=== PATIENT | female | born 1945 | race Caucasian/White ===

== ENCOUNTER 2020-09-29 11:56 | Outpatient (REF) | payer MEDICARE, SELFPAY ==
[2020-09-29 13:50] LABS: MANUAL DIFF FLAG NO
[2020-09-29 13:56] LABS: Glucose Urine UA NEG (NEG); Leukocyte Esterase Urine NEG (NEG); Nitrite Urine NEG (NEG); PH 6.5 (5.0-8.0); Specific Gravity - Urine <= 1.005 (1.005-1.025); Urine Blood NEG (NEG); Urine Ketones NEG (NEG); Urine Protein NEG (NEG-TRACE)
[2020-09-29 13:59] LABS: Appearance Urine CLEAR; Color Urine STRAW
[2020-09-29 14:00] LABS: Renal w Reflex-LAB USE ONLY Order Verified
[2020-09-29 14:01] LABS: Basophils Absolute Auto 0.1 X10*3/uL (0.0-0.2); Basophils Percent Auto 0.9 % (0-2); Eosinophils Absolute Auto 0.4 X10*3/uL (0.0-0.4); Eosinophils Percent Auto 3.5 % (0-4); Hematocrit 44.2 % (37-47); Hemoglobin 14.5 g/dl (12.0-16.0); Imm Gran Abs Auto 0.11 X10*3/uL (0.00-0.03); Imm Gran Pct Auto 0.9 % (0.0-0.4); Lymphocytes Absolute Auto 2.6 X10*3/uL (1.2-4.9); Lymphocytes Percent Auto 22.7 % (20-40); Mean Corpuscular HGB Conc 32.8 g/dl (31.0-35.0); Mean Corpuscular Hemoglobin 30.7 pg (27.0-33.0); Mean Corpuscular Volume 93.4 fL (80-98); Mean Platelet Volume 11.1 fL (9.4-12.3); Monocytes Absolute Auto 0.6 X10*3/uL (0.1-1.2); Monocytes Percent Auto 5.5 % (2-11); Neutrophils Absolute Auto 7.7 X10*3/uL (2.0-8.3); Neutrophils Percent Auto 66.5 % (45-73); Platelet Count 263 X10*3/uL (160-400); Red Blood Count 4.73 X10*6/uL (4.20-5.50); Red Cell Distribution Width 15.4 % (11.0-16.0); White Blood Count 11.6 X10*3/uL (4.8-10.8)
[2020-09-29 14:17] LABS: Albumin Level 4.2 g/dL (3.5-5.0); Anion Gap 15 (12-20); Blood Urea Nitrogen 19 mg/dL (9-16); Calcium 9.5 mg/dL (8.4-10.2); Carbon Dioxide 26 mmol/L (22-29); Chloride 103 mmol/L (96-108); Estimated Glomerular Filt Rate > 60; Phosphorus 3.5 mg/dL (2.7-4.5); Potassium 4.5 mmol/L (3.3-5.1); Sodium 139 mmol/L (135-145)
[2020-09-29 14:20] LABS: RBC Urine 0 /HPF (0); Squamous Epithelial Cell Urine TRACE /LPF; WBC Urine 0 /HPF (0-4)
[2020-09-29 14:50] LABS: Creatinine Urine 19.03 mg/dL; Microalbumin Urine < 5.0 mg/L; Total Protein Urine Random < 7 mg/dL (<12)
[2020-09-29 15:08] LABS: Renal w Reflex Lab Use Only Order verified
== END 2020-09-29 11:57 | disposition home or self-care (01) ==
LOC: HO.10HDL 11:56
PROVIDERS: Visit Provider Internal Medicine Nephrology
DX: R80.9 Proteinuria, unspecified (principal); I12.9 Hypertensive chronic kidney disease with stage 1 through stage 4 chronic kidney disease, or unspecified chronic kidney disease; E11.22 Type 2 diabetes mellitus with diabetic chronic kidney disease; E11.21 Type 2 diabetes mellitus with diabetic nephropathy; N18.2 Chronic kidney disease, stage 2 (mild)
CPT/HCPCS: 36415; 80051; 81001; 82040; 82043; 82310; 82565; 83735; 84100; 84156; 84520; 85025

== ENCOUNTER 2021-10-25 11:01 | Outpatient (REF) | payer MEDICARE, SELFPAY ==
[2021-10-25 11:22] LABS: MANUAL DIFF FLAG NO
[2021-10-25 11:59] LABS: Basophils Absolute Auto 0.1 X10*3/uL (0.0-0.2); Basophils Percent Auto 1.1 % (0-2); Eosinophils Absolute Auto 0.2 X10*3/uL (0.0-0.4); Eosinophils Percent Auto 2.4 % (0-4); Hematocrit 45.9 % (37.0-47.0); Hemoglobin 14.9 g/dl (12.0-16.0); Imm Gran Abs Auto 0.08 X10*3/uL (0.00-0.03); Lymphocytes Absolute Auto 2.3 X10*3/uL (1.2-4.9); Lymphocytes Percent Auto 27.9 % (20-40); Mean Corpuscular HGB Conc 32.5 g/dl (31.0-35.0); Mean Corpuscular Volume 92.4 fL (80.0-98.0); Mean Platelet Volume 11.3 fL (9.4-12.3); Monocytes Absolute Auto 0.6 X10*3/uL (0.1-1.2); Monocytes Percent Auto 7.5 % (2-11); Neutrophils Percent Auto 60.1 % (45-73); Platelet Count 247 X10*3/uL (160-400); Red Blood Count 4.97 X10*6/uL (4.20-5.50); Red Cell Distribution Width 14.8 % (11.0-16.0); White Blood Count 8.4 X10*3/uL (4.8-10.8)
[2021-10-25 12:19] LABS: Estimated Average Glucose 140 mg/dL; Hemoglobin A1c % 6.5 %
[2021-10-25 12:22] LABS: Anion Gap 12 (12-20); Blood Urea Nitrogen 20 mg/dL (9-16); Calcium 9.9 mg/dL (8.4-10.2); Carbon Dioxide 29 mmol/L (22-29); Chloride 106 mmol/L (96-108); Estimated Glomerular Filt Rate 57; Iron 56 mcg/dL (30-160); Percent Iron Saturation 15 % (15-50); Potassium 4.7 mmol/L (3.3-5.1); Sodium 142 mmol/L (135-145); Total Iron Binding Capacity 385 mcg/dL (228-428); Unsaturated Iron Binding 329 ug/dL
[2021-10-25 12:40] LABS: Appearance Urine CLEAR; Color Urine YELLOW; Glucose Urine UA NEG (NEG); Leukocyte Esterase Urine NEG (NEG); Nitrite Urine NEG (NEG); Urine Blood NEG (NEG); Urine Ketones NEG (NEG); Urine Protein NEG (NEG-TRACE)
[2021-10-25 13:10] LABS: Creatinine Urine 38.79 mg/dL; Microalbumin Urine < 5.0 mg/L
== END 2021-10-25 11:02 | disposition home or self-care (01) ==
LOC: HO.LAB 11:01
PROVIDERS: PCP Physician Assistant; Visit Provider Internal Medicine Nephrology
DX: I10 Essential (primary) hypertension (principal)
CPT/HCPCS: 36415; 80051; 81003; 82043; 82306; 82310; 82565; 83036; 83540; 84520; 85025

== ENCOUNTER 2023-06-18 18:04 | Emergency (ER) | payer MEDICARE, SELFPAY ==
--- NOTE | ~2023-06-18 | XR_ITS ---
EXAMINATION: XR CHEST CLINICAL INFORMATION: Cough. COMPARISON: None available. TECHNIQUE: 2 views of the chest were obtained. FINDINGS: The lungs are expanded with mild increase bilateral hilar interstitial markings but no acute consolidation or pleural effusion. Mild atelectatic changes seen right middle lobe. Borderline enlarged heart. Pulmonary vascularity is normal. No gross bony abnormality. XR/XR chest 2V IMPRESSION: Increased bilateral interstitial markings likely pneumonitis. No acute consolidation or pleural effusion seen. Borderline cardiomegaly
[2023-06-18 18:18] VITALS: BP 154/77; BP 160/89; PULSE 106; PULSE 99; RESP 18; TEMP 37.4; O2SAT 94; O2SAT 97; BMI 56.1
--- NOTE | 2023-06-18 18:48 | PC.NURSE ---
pt a&o x4, calm, and cooperative. comes from home for feeling unwell. pt family sts she has an allergy to an ABX but does not remember what one. pt reports urinary frequency with incontinence, thinks she may have a UTI. pt reluctant in taking medications/NSAIDS. sts the only NSAID she will take is naproxen. rr even/unlabored. vss. pt resting quietly on stretcher. call rhodes within pt reach.
--- NOTE | 2023-06-18 18:59 | ED.GENADULT ---
HPI - General Adult General Chief complaint: General Medical Stated complaint: nausea and MANUEL Time Seen by Provider: 06/18/23 18:09 Source: patient Mode of arrival: EMS History of Present Illness HPI narrative: 77-year-old female who is brought in by EMS after experiencing headache, cough, abdominal discomfort with some mild nausea and a low-grade fever and found herself to be COVID-19 positive. Patient thinks that she may have contracted COVID after visiting her mother in a [place] [facility] [place] on . She otherwise denies any shortness of breath or chest pain. Related Data Home Medications Medication Instructions Recorded Confirmed amlodipine 10 mg tablet 10 mg PO DAILY 03/02/21 betamethasone dipropionate 0.05 % appl topical 03/02/21 topical cream blood sugar diagnostic (FreeStyle #10 ea 03/02/21 Lite Strips) bupropion HCl 200 mg tablet,12 hr PO 03/02/21 sustained-release carbamide peroxide 6.5 % ear drops 0 drp otic (ears) 03/02/21 (Ear Wax Removal Drops) hydrochlorothiazide 12.5 mg tablet 12.5 mg PO DAILY 03/02/21 insulin degludec 200 unit/mL (3 unit subcut 03/02/21 mL) subcutaneous pen (Tresiba FlexTouch U-200 insulin) levothyroxine 150 mcg capsule 150 mcg PO DAILY 03/02/21 meclizine 25 mg tablet 25 mg PO DAILY 03/02/21 metformin 1,000 mg tablet 1,000 mg PO DAILY 03/02/21 mupirocin 2 % topical ointment topical DAILY 03/02/21 nystatin 100,000 unit/gram topical 1 appl topical BID-TID 03/02/21 powder (Nystop) Allergies Allergy/AdvReac Type Severity Reaction Status Date / Time No Known Allergies Allergy Verified 03/02/21 10:06 Review of Systems Review of Systems: Pertinent positives and negatives as stated in HPI [facility] Past Medical History Source: nursing notes reviewed Social History Social History Smoked in Last 30 Days: No Use of substances other than those prescribed or required for medical reasons: No Advance Directives: No Advance Directives Information Provided: No Physical Exam ED Vital Signs: Vital Signs - 24 hr 06/18/23 18:18 Temperature 99.3 F Pulse Rate 99 Respiratory Rate 18 Blood Pressure 154/77 H Pulse Oximetry 94 Oxygen Delivery Method Room Air BMI result Body Mass Index 56.1 VITAL SIGNS: Reviewed. GENERAL: Well developed, well nourished, in no acute distress. HEAD: Normocephalic/atraumatic EYES: PERRLA, EOMI EARS: Ext canals without abnormality NOSE: Nares patent bilateral OROPHARYNX: no oral lesions noted, posterior pharynx clear NECK: Supple, no adenopathy LUNGS: Normal breath sounds. No adventitious sounds or accessory muscle use. SpO2<94> CARDIOVASCULAR: Regular rate and rhythm without noted murmurs, no JVD or lower extremity edema. ABDOMEN: Soft, non-tender, non-distended with bowel sounds. MUSCULOSKELETAL: No tenderness, deformities, or effusions noted on gross inspection. EXTREMITIES: No cyanosis, clubbing or edema. SKIN: Inspection of the skin reveals no rashes NEUROLOGIC: Alert and oriented x 4. Strength and sensation to light touch were grossly intact x 4. Medications Administered Discontinued Medications Generic Name Dose Route Start Last Admin Trade Name Freq PRN Reason Stop Dose Admin Sodium Chloride 500 mls @ 999 mls/hr 06/18/23 19:15 06/18/23 20:20 Ns IV 06/18/23 19:45 Infused .Q31M JEROMY Infusion Naproxen 500 mg 06/18/23 18:49 06/18/23 19:01 Naproxen 500 Mg Tablet PO 06/18/23 18:50 500 mg ONCE ONE Administration Ondansetron HCl 4 mg 06/18/23 19:00 06/18/23 19:02 Ondansetron Odt 4 Mg Tab.Rapdis TRANSLINGU 06/18/23 19:01 Not Given ONCE ONE Medical Decision Making Medical Decision Making [facility] Narrative: 77-year-old female with history and clinical presentation consistent with viral illness, possibility of UTI but doubt intra-abdominal infection and patient has confirmed that she is COVID-19 positive. Patient will receive Zofran as well as naproxen the latter is at her request. I reviewed all investigations and viral testing demonstrates that patient is COVID-19 positive, chest x-ray is negative for infiltrates and otherwise my interpretation is in agreement with radiology's impression, urinalysis is negative for UTI or hematuria. Patient is otherwise discharged home and instructed to isolate for 5 days. Differential Diagnosis Differential Diagnoses: The differential diagnosis associated with the presentation includes Please see the discussion above Admission/Observation Consideration of admission/observation: Escalation of care including admission/observation considered Please see the discussion above Lab Data MDM Lab Attestation statement: I reviewed the patient's lab results. Please see the discussion above Labs: Lab Results 06/18/23 06/18/23 Range/Units 19:04 21:03 Urine Color Yellow Urine Appearance Clear Urine pH 5.5 (5.0-9.0) Ur Specific [place] 1.020 (1.005-1.025) Urine Protein Negative (Neg-Trace) mg/dL Urine Glucose (UA) Negative (Negative) mg/dL Urine Ketones 15 (Negative) mg/dL Urine Blood Negative (Negative) Urine Nitrite Negative (Negative) Ur Leukocyte Esterase Negative (Negative) COVID-19 (FERNANDA) Positive A (Negative) COVID-19 Clin Com See Note Influenza Type A (DOMINICK) Negative (Negative) Influenza Type B (DOMINICK) Negative (Negative) Influenza A & B Note See Note Radiology Impression Discussion of test interpretation with radiology: I have reviewed the radiologist's reading. Radiologist Impression: Please see the discussion above External Record Review External record reviewed: Outpatient record and Prior outpatient labs Chronic Conditions Patient?s care impacted by: Diabetes Discharge Plan Discharge Clinical Impression: Viral illness, Lab test positive for detection of COVID-19 virus Patient Disposition: Home, Self-Care Instructions: Viral Syndrome (ED), COVID-19 (Coronavirus Disease 2019) (ED) Additional Instructions: 1. You must isolate for the next 5 days because you are COVID-19 positive. 2. Recommend [id number] Tylenol and/or ibuprofen for body aches/temperatures greater than 100.4, headaches. Continue to drink plenty of fluids and get rest Return to the ER for any worsening symptoms. Prescriptions: No Action nystatin [Nystop] 100,000 unit/gram powder 1 appl topical BID-TID amlodipine 10 mg tablet 10 mg PO DAILY Tresiba FlexTouch U-200 200 unit/mL (3 mL) insulin pen subcut carbamide peroxide [Ear Wax Removal Drops] 6.5 % drops 0 drp otic (ears) mupirocin 2 % ointment topical DAILY (DME) FreeStyle Lite Strips Strip See Rx Instructions Not Applicable .MEDSUPPLY Qty: 10 Rx Instructions: As directed betamethasone dipropionate 0.05 % cream topical levothyroxine 150 mcg capsule 150 mcg PO DAILY metformin 1,000 mg tablet 1,000 mg PO DAILY bupropion HCl 200 mg tablet sustained-release 12 hr PO hydrochlorothiazide 12.5 mg tablet 12.5 mg PO DAILY meclizine 25 mg tablet 25 mg PO DAILY
[2023-06-18] MEDS: NaPROXEN 500 MG TABLET PO (19:01)
[2023-06-18] MEDS: 0.9 % Sodium Chloride 500 ML 999 ML IV (19:04)
[2023-06-18 19:25] LABS: COVID-19 Test Positive (Negative); IDNOW Serial# 9DB6401D; IDNOW Serial# BCCEAD1C; Influenza A Negative (Negative); Influenza B2 Negative (Negative)
[2023-06-18 21:13] LABS: Appearance Urine Clear; Color Urine Yellow; Glucose Urine UA Negative (Negative); Leukocyte Esterase Urine Negative (Negative); Nitrite Urine Negative (Negative); PH 5.5 (5.0-9.0); Urine Blood Negative (Negative); Urine Ketones 15 mg/dL (Negative); Urine Protein Negative (Neg-Trace)
[2023-06-18 21:25] VITALS: BP 141/73; PULSE 89; RESP 20; TEMP 36.9; O2SAT 94
== END 2023-06-18 21:31 | disposition home or self-care (01) ==
PROVIDERS: Emergency Provider Student in an Organized Health Care Education/Training Program
DX: U07.1 COVID-19 (principal); B34.9 Viral infection, unspecified
CPT/HCPCS: 71046; 81003; 87502; 87635; 96360; 99284

== ENCOUNTER 2023-10-29 09:50 | Outpatient (REF) | payer MEDICARE, SELFPAY ==
[2023-10-29 10:55] LABS: Appearance Urine Cloudy; Color Urine Yellow; Glucose Urine UA Negative (Negative); Leukocyte Esterase Urine Negative (Negative); Nitrite Urine Negative (Negative); PH 5.5 (5.0-9.0); Specific Gravity - Urine 1.025 (1.005-1.025); Urine Blood Negative (Negative); Urine Ketones Negative (Negative); Urine Protein Negative (Neg-Trace)
[2023-10-29 11:03] LABS: Anion Gap 14 (12-20); Blood Urea Nitrogen 21 mg/dL (9-16); Calcium 9.4 mg/dL (8.4-10.2); Carbon Dioxide 24 mmol/L (22-29); Chloride 108 mmol/L (96-108); Estimated Glomerular Filt Rate > 60; Potassium 4.2 mmol/L (3.3-5.1); Sodium 142 mmol/L (135-145)
[2023-10-29 12:01] LABS: Microalbum/Creatinine Ratio Ur 8.2 ug/mg cr (<30); Total Protein Urine Random < 7 mg/dL (<12)
== END 2023-10-29 09:51 | disposition home or self-care (01) ==
LOC: HO.LAB 09:50
PROVIDERS: PCP Nurse Practitioner Adult Health; Visit Provider Internal Medicine Nephrology
DX: E11.21 Type 2 diabetes mellitus with diabetic nephropathy (principal)
CPT/HCPCS: 36415; 80051; 81003; 82043; 82310; 82565; 82570; 84156; 84520

== ENCOUNTER 2024-11-24 09:52 | Outpatient (REF) | payer MEDICARE, SELFPAY ==
[2024-11-24 10:55] LABS: Anion Gap 15 (12-20); Blood Urea Nitrogen 16 mg/dL (9-16); Calcium 9.6 mg/dL (8.4-10.2); Carbon Dioxide 24 mmol/L (22-29); Chloride 106 mmol/L (96-108); Estimated Glomerular Filt Rate > 60; Potassium 4.4 mmol/L (3.3-5.1); Sodium 141 mmol/L (135-145)
[2024-11-24 11:02] LABS: Appearance Urine Clear; Color Urine Yellow; Glucose Urine UA Negative (Negative); Leukocyte Esterase Urine Negative (Negative); Nitrite Urine Negative (Negative); Specific Gravity - Urine 1.025 (1.005-1.025); Urine Blood Negative (Negative); Urine Ketones Negative (Negative); Urine Protein Negative (Neg-Trace)
[2024-11-24 11:08] LABS: Bacteria Urine Trace (None Seen); Hyaline Casts Urine 0-2 /LPF (0-2); RBC Urine 0-2 /HPF (0-2); WBC Urine 0-5 /HPF (0-5)
--- OUTSIDE RECORDS SUMMARY | 2024-11-24 11:18 | XMS_ITS | Patient Health Record ---
Author Organization [facility] Jyotsna Kim Address [address] [place] [address] Care Team Providers Care Sccm Administrator Name Role Phone Oc FORD, Candelaria Primary Care Provider Unav gene CaraballoenricoKimberyl Unavailable [phone] Allergies Allergen (clinical drug ingredient) Drug/Non Drug Allergy documented on EMR Reaction Allergy Type Onset Date Status ciprofloxacin Cipro Unknown Drug Allergy Act casey Levaquin Unknown Drug Allergy Active Results Component Value Reference Range Notes HEMOGLOBIN A1C (GLYCOHEMOGLO BIN) Reviewed date:08/19/2024 11:30:03 AM Interpretation: Performing Lab: Notes/Report: HEMOGLOBIN A1C % (HH) 7.9 Reason For Referral No Information Medications Medication SIG (Take, Route, Frequency, Duration) Notes Start Date End Date Status Travatan Active NovoLOG Active Multivitamin Active Liothyronine Sodium 5 MCG 1 tablet on an empty stomach Orally Once a day for 30 day(s) Active Levothyroxine Sodium 150 MCG 1 tablet in the morning on an empty stomach Orally Once a day for 30 day(s) Active Fish Oil Active Extra Depth Orthopedic Shoes (1 Pair) with Customized Heat Molded Multidensity Innersoles (3 Pair) as directed Dx: NIDDM/Polyneuropathy (E11.42), Hammertoe Foot Deformity (M20.41,M20.42), Preulcerative Skin Lesion(s) (L85.1 Active metFORMIN HCl 1000 MG 1 tablet with a me al Orally Once a day for 30 day(s) Active Meclizine HCl 25 MG 1 tablet as needed Orally Once a day for 30 day(s) PRN Active Magnesium 200 MG 2 tablets with a richy l Orally Once a day for 30 day(s) Active Losartan Potassium 100 MG 1 tablet Orall y Once a day for 30 day(s) Active Custom Orthotics as directed 11/09/2020 Not-Taking B Complex Active amLODIPine Besylate 10 MG 1 tablet Orall y Once a day for 30 day(s) Not-Taking Timolol Hemihydrate 0.25 % 1 drop into a ffected eye Ophthalmic Once a day Active Extra Depth Orthopedic Shoes (1 Pair) with Customized Heat Molded Multidensity Innersoles (3 Pair) as directed Dx: NIDDM/Polyneuropathy (E11.42), Hammertoe Foot Deformity (M20.41,M20.42), Preulcerative Skin Lesion(s) (L85.1 11/09/2020 Not-Taking Plavix Active Vitamin C Not-Taking hydroCHLOROthiazide 12.5 MG 1 capsule in the morning Orally Once a day for 30 day(s) Not-Taking Vitamin K2 Active Vitamin D3 Active Tresiba Active Aspirin 81 81 MG 1 tablet Orally Once a day Active Timoptic 0.25 % 1 drop into affected eye Ophthalmic Once a day Not-Taking Clopidogrel Bisulfate Active Lactic Acid Not-Taki ng buPROPion HCl ER (SR) 200 MG 1 tablet in the morning Orally Once a day for 30 day(s) Not-Taking Albuterol PRN Not-Taking Immunizations Vaccine Route Administration Date Status Comme nts Influenza Unknown 01/23/2023 Refused Influenza Unknown 10/16/2023 Refused Social History Tobacco Use: Social History Observation Description Date Details (start date - stop date) Never Smoker NA - NA Alcohol Screen Question Answer Notes Did you have a drink containing alcohol in the p ast year? No Points 0 Interpretation Negative Tobacco use other than smoking: Question Answer Notes Are you an other tobacco user? No Tobacco Control (Standard) Question Answer Notes Tobacco use: Nonsmoker Problems Problem Type SNOMED Code ICD Code Onset Dates Problem Status W/U Status Risk Notes Problem Acquired hammer toe of right foot (2300620358617221) Other hammer toe(s) (acquired), right foot (M20.41) Active confirmed Problem Acquired hammer toe of left foot (0828450588290193) Other hammer toe(s) (acquired), left foot (M20.42) Active confirmed Problem 112095421 Type 2 diabetes mellitus with other skin ulcer (E11.622) Active confirmed Problem 72602216523095853 Non-pressure chronic ulcer of unspecified part of left lower leg with unspecified severity (L97.929) Active confirmed Problem 280773830 Hammer toe of left foot (M20.42) Active confirmed Problem 0355389707 Hallux valgus of left foot (M20.12) Active confirmed Problem 46731594 Type 2 diabetes mellitus with polyneuropathy (E11.42) Active confirmed Problem 26377872647431848 Atherosclerosi s of artery of both lower extremities (I70.203) Active confirmed Problem 44865643 Type 2 diabetes, controlled, with neuropathy (E11.40) Active confirmed Vital Signs Blood pressure diastolic 67 mm Hg 08/19/2024 Height 5 ft 1 in in 08/19/2024 Blood pressure systolic 118 mm Hg 08/19/2024 Weight 300 lbs 08/19/2024 BMI 56.68 kg/m2 08/19/2024 Encounters Encounter Location Date Provider Diagnosis [address] [address] 03/05/2024 Kimberly Tang Tinea unguium B35.1 and Type 2 diabetes mellitus with polyneuropathy E11.[address] [address] 05/21/2024 Kimberly Tang Type 2 diabetes mellitus with polyneuropathy E11.42 ; Other hammer toe(s) (acquired), left foot M20.42 ; Tinea unguium B35.1 ; Other hammer toe(s) (acquired), right foot M20.41 ; Type 2 diabetes mellitus with other skin ulcer E11.622 ; Non-pressure chronic ulcer of unspecified part of left lower leg with unspecified severity L97.929 ; Atherosclerosis of artery of both lower extremities I70.203 and Hallux valgus of left foot M20.[address] [address] 08/19/2024 Kimberly Tang Type 2 diabetes mellitus with polyneuropathy E11.42 ; Other hammer toe(s) (acquired), left foot M20.42 ; Tinea unguium B35.1 ; Other hammer toe(s) (acquired), right foot M20.41 and Atherosclerosis of artery of both lower extremities I70.203 [facility] [place] [address] [place] [address] 12/25/2023 Kimberly Tang Assessments Encounter Date Diagnosis (ICD Code) Assessment Notes Treatment Notes Treatment Clinical Notes Section Notes 03/05/2024 Tinea unguium (ICD-10 - B35.1) 05/21/2024 Other hammer toe(s) (acquired), left foot (ICD-10 - M20.42) 05/21/2024 Type 2 diabetes mellitus with polyneuropathy (ICD-10 - E11.42) 08/19/2024 Type 2 diabetes mellitus with polyneuropathy (ICD-10 - E11.42) 08/19/2024 Other hammer toe(s) (acquired), left foot (ICD-10 - M20.42) 08/19/2024 Tinea unguium (ICD-10 - B35.1) 05/21/2024 Tinea unguium (ICD-10 - B35.1) 03/05/2024 Type 2 diabetes mellitus with polyneuropathy (ICD-10 - E11.42) 05/21/2024 Other hammer toe(s) (acquired), right foot (ICD-10 - M20.41) Patient Educated with: DIABETIC FOOT CARE INSTRUCTIONS. pdf (DIABETIC FOOT CARE INSTRUCTIONS. pdf) 08/19/2024 Other hammer toe(s) (acquired), right foot (ICD-10 - M20.41) Patient Educated with: DIABETIC FOOT CARE INSTRUCTIONS. pdf (DIABETIC FOOT CARE INSTRUCTIONS. pdf) 05/21/2024 Type 2 diabetes mellitus with other skin ulcer (ICD-10 - E11.622) 08/19/2024 Atherosclerosis of artery of both lower extremities (ICD-10 - I70.203) 05/21/2024 Non-pressure chronic ulcer of unspecified part of left lower leg with unspecified severity (ICD-10 - L97.929) 05/21/2024 Atherosclerosis of artery of both lower extremities (ICD-10 - I70.203) 05/21/2024 Hallux valgus of left foot (ICD-10 - M20.12) Plan Of Treatment Next Appt Details Provider Name:Kimberly weston, 01/20/2025 03:15:00 PM, [address] [place], [address], Insurance Providers Payer Name Payer Address Payer Phone Subscriber Number Group Number Insured Name Patient Relationship to Insured Coverage Start Date Coverage End Date Medicare [employer] [address] [place] [address] [id number] Karma Pelaez Self - patient is the insured [employer] [address] [place] [address] [id number] Karma Pelaez Self - patient is the insured Medical (General) History Medical History History ICD Code Arthritis asthma Back,Hip,and Knee pain Cancer Cataracts Depression Diabetic type 2 Glaucoma Measles Mumps Chicken pox Joint implants/screws High blood pressure Kidney disease Liver disease Osteoporosis Sciatica chronic sinusitis thyroid Surgical History Surgery Date(Month/Year) right knee replacement 11/2001 left knee replacement 11/2012 hysterectomy 11/2002 mastectomy 08/2011 Angiogram and stent placed in the poplit eal artery 12/27/22
--- OUTSIDE RECORDS SUMMARY | 2024-11-24 11:19 | XMS_ITS | Clinical Summary ---
Author Organization [facility] Facility Address [address] [place] [id number] Care Team Providers Care Tacking Stitch Remover Name Role Phone Zen Patton MD Primary Care Provider [phone] Allergies Active Allergy Reactions Criticality Noted Date Comments Ciprofloxacin Other (see comments) 11/01/2023 Levofloxacin Other (see comments) 11/01/2023 Liraglutide Other (see comments) 04/08/2019 Medications coenzyme Q-10 100 MG capsule Take 1 capsule by mouth 1 (one) time each day Active Linton-3 Fatty Acids (FISH OIL PO) Take 2 capsules by mouth 1 (one) time each day Active albuterol HFA (PROVENTIL HFA;VENTOLIN HFA) 108 (90 Base) MCG/ACT inhaler 1 puff by Other route every 4 (four) hours Active hydroCHLOROthia zide (HYDRODIURIL) 12.5 MG tablet Take 1 tablet by mouth 1 (one) time each day Active insulin aspart (NovoLOG) 100 UNIT/ML injection Active losartan (COZAAR) 25 MG tablet Take 25 mg by mouth 1 (one) time each day Active Meclizine HCl 25 MG chewable tablet Chew 1 tablet 1 (one) time each day if needed Active metFORMIN (GLUCOPHAGE) 1000 MG tablet Take 1 tablet by mouth every morning Active niacin 500 MG CR capsule Take 1 capsule by mouth 1 (one) time each day Active insulin degludec (Tresiba FlexTouch) 100 UNIT/ML injection Inject 32 Units under the skin 1 (one) time each day Active liothyronine (CYTOMEL) 5 MCG tablet Take 5 mcg by mouth 1 (one) time each day Active levothyroxine sodium (TIROSINT) 150 MCG capsule Take 150 mcg by mouth 1 (one) time each day Active HEMP OIL-VANILLYL BUTYL ETHER EX Apply topically Active calcium carbonate-vitam in D (OSCAL-500) 500-200 MG-UNIT per tablet Take 1 tablet by mouth 1 (one) time each day Active Acetylcysteine (NAC) 500 MG capsule Take by mouth Active Quercetin 250 MG tablet Take by mouth Active amLODIPine (NORVASC) 5 MG tablet Take 1 tablet (5 mg total) by mouth 1 (one) time each day 90 tablet 3 4 Active Active Problems Problem Noted Date Diagnosed Date Chronic kidney disease, stage 2 (mild) 3 Chronic kidney disease stage 2 10/21/2020 Hypertensive renal disease 10/21/2020 Hypertensive renal disease 10/21/2020 Proteinuria 10/21/2020 Renal disorder due to type 2 diabetes mellitus 0 10/21/2020 Acquired hypothyroidism 04/08/2019 Overview (10/21/2020): Last Assessment & Plan: Recent TFTs reviewed Continues on LT4, LT3 Clinically euthyroid Mixed hyperlipidemia 04/08/2019 Overview (10/21/2020): Last Assessment & Plan: Has declined statin therapy LDL is above goal on most recent lab work Obstructive sleep apnea syndrome 04/08/2019 Overview (10/21/2020): Last Assessment & Plan: Uses CPAP consistently Good quality sleep is important for improving metabolic markers which affect glucose control and weight management Gastro-esophageal reflux disease with esophagiti s 07/15/2014 Overview (10/21/2020): Gastroesophageal reflux disease with esophagitis Hypertensive disorder 07/15/2014 Overview (10/21/2020): Hypertension Last Assessment & Plan: Continues on medication regimen which includes ARB Blood pressure is very well controlled Malignant neoplasm of breast (female), unspecifi ed 07/15/2014 Overview (10/21/2020): Malignant neoplasm of female breast; Right Morbid obesity 07/15/2014 Overview (10/21/2020): Morbid obesity Last Assessment & Plan: Karma declined a weight today, BMI has been >50 She has been less consistent with healthy eating but plans to resume a healthier plan Basal insulin requirement has been stable Osteoarthritis 07/15/2014 Overview (10/21/2020): Osteoarthritis Type 2 diabetes mellitus 07/15/2014 Overview (10/21/2020): Diabetes mellitus type 2 Last Assessment & Plan: Overall glucose control is suboptimal in the recent past, likely related to less consistency with healthy lifestyle Karma is reassured that her A1c, though higher than previous, remains in good overall range We reviewed current insulin therapy and Karma will continue her current doses as she works on improving her diet We discussed the possible effects of dental abscess on glucose levels due to increase in insulin resistance, Karma is encouraged to monitor blood sugars closely and reduce basal insulin dose if FPG are trending lower Karma is encouraged to contact me with any questions or concerns Last Assessment & Plan: A1c has been rising though remains in reasonable range given Karma's age and health status We discussed importance of minimizing risk for hypoglycemia Requiring higher doses of insulin, we discussed reasons for higher insulin requirement based on recent lifestyle patterns and increased stressors We discussed optimized dose of mealtime insulin and slight reduction in basal insulin based on self report of glucose readings We discussed the benefits of CGM personal vs profession eval to assess glucose patterns, Karma will consider this Encouraged to continue to work on healthy lifestyle habits Advised to contact me with any questions or concerns We will meet again in 6 months, Karma has upcoming appt with our director public staff ? ? This patient has diabetes This patient has been using a blood glucose meter and performing 4 or more blood glucose readings daily or is now using CGM This patient is insulin-treated with 3 or more daily injections OR a continuous subcutaneous insulin infusion pump This patient's insulin treatment regimen requires frequent adjustment by the patient on the basis of blood glucose meter readings or continuous glucose monitoring results This patient has had an in-person visit with the treating provider to evaluate diabetes control and determine criteria for CGM use This patient will return for follow up visits at least every 6 months to assess adherence to CGM regimen, the effect of the current diabetes treatment regimen and to have insulin and medication therapy adjusted as needed for optimal outcome X By checking this space, I attest that the patient does not meet the standard CGM requirements, however, is an exception because he/she is in need of a CGM during COVID-19 pandemic. Encounters Date Type Department Care Team Description 11/24/2024 Orders Only [facility]. [address] [phone] Felix Flanagan MD from Last 3 Months Immunizations Immunization Administration Dates Next Due Influenza (IM) Preservative Free 05/01/2013 Influenza Split High Dose Pr eservative Free IM 05/29/2017,04/21/2016,05/14/2015,06/10 Influenza, Unspecified 07/15/2014,2011,05/11/2011,05/02,04/26/2009,04/24/2008,06/08/2007 ,06/14/2006,05/17/2005,05/19/2004 Pneumococcal Conjugate 13-Valent 06/10/2015 Pneumococcal Polysaccharide 07/05/2017, 1,06/14/2006 Pneumococcal, Unspecified 07/15/2014 Tdap 08/24/2010 Zoster 02/11/2013 Family History Medical History Relation Comments Hypertension Child son Cancer Father Diabetes Father Gout Father Heart disease Father Hypertension Father Kidney disease Father Stroke Father Cancer Mother Dementia Mother Diabetes Mother Heart disease Mother Hypertension Mother Stroke Sibling 1 Hypertension Sibling 2 Diabetes Sibling 3 sisterx2 Heart disease Sibling 4 siblings Kidney disease Sibling 5 sister Relation Status Comments Child Father Mother Sibling 1 Sibling 2 Sibling 3 Sibling 4 Sibling 5 Social History Tobacco Use Types Packs/Day Years Used Date Smoking Tobacco: Former Cigarettes Q uit: 07/30/1983 Alcohol Use Standard Drinks/Week Comments Yes 0 (1 standard drink = 0.6 oz pure alcohol) Alcoholic Drinks/day: Occasional social drink Comments Unknown Sex and Gender Information Value Date Recorded Sex Assigned at Not on file Legal Sex Female 5:05 PM EST Gender Identity Not on file Sexual Orientation Not on file Last Filed Vital Signs Vital Sign Reading Time Taken Comments Blood Pressure 127/68 11/01/2023 2:23 PM EDT Pulse 77 11/01/2023 2:23 PM EDT Temperature - - Respiratory Rate - - Oxygen Saturation 98% 11/01/2023 2:23 PM EDT Inhaled Oxygen Concentration - - Weight 135 kg (297 lb 6.4 oz) 11/01/2023 2:23 PM EDT Height 154.9 cm (5' 1 ) 10/08/2018 12:00 PM EDT Body Mass Index 56.19 10/08/2018 12:00 PM EDT Plan of Treatment Upcoming Encounters Date Type Department Care Team (Late st Contact Info) Description 12/01/2024 1:30 PM EDT Office Visit [facility] [address] [place] [phone] Felix Flanagan MD [address] [facility] [address] [place] [address] Health Maintenance Due Date Last Done Comments Diabetes: Ophthalmology Exam 08/30/2020 Diabetes: Pedal Pulse Checked 08/30/2020 Diabetes: Sensory Foot Exam 08/30/2020 Diabetes: Visual Foot Exam 08/30/2020 Diabetes: Hemoglobin A1C 09/20/202406/20/2 024, 10/25/2021, 08/18/2021, Additional history exists Influenza Vaccine (Season Ended) 2025 05/29/2017, 04/21/2016, 05/14/2015, Additional history exists Pneumococcal Vaccine: 50+ Years Completed 07/05/2017, 06/10/2015, 07/15/2014, Additional history exists Pneumococcal Vaccine: Peds (0 to 5 Years) and At-Risk Patients (6 to 49 Years) Discontinued 07/05/2017, 06/10/2015, 07/15/2014, Additional history exists Hepatitis B Vaccine Aged Out No longe r eligible based on patient's age to complete this topic Procedures Procedure Name Priority Date/Time Associated Diagnosis Comments URINALYSIS WITH MICROSCOPIC Routine 11/24/2024 10:29 AM EDT CALCIUM Routine 11/24/2024 10:12 AM EDT CREATININE, BLOOD Routine 11/24/2024 10: 12 AM EDT BUN Routine 11/24/2024 10:12 AM EDT ELECTROLYTE PANEL Routine 11/24/2024 10: 12 AM EDT HEMOGLOBIN A1C Routine 10/25/2021 11:20 AM EDT Hypertensive disorder from Last 3 Months or Most Recently Relevant to Health Maintenance Results * Urinalysis with microscopic (11/24/2024 10:29 AM EDT) Color Urine Yellow See orde r comments Appearance Urine Clear See order comments pH Urine 7.0 5.0 - 9.0 See order comments Glucose Urine Negative Negative mg/dL See order comments Blood, Urine Negative Negative See ord er comments Specific [place] Urine 1.025 1.005 - 1.025 See order comments Protein Urine Negative Neg-Trace mg/dL See order comments Ketones, Urine Negative Negative mg/dL See order comments Nitrite, Urine Negative Negative See o rder comments Leukocyte Esterase Urine Negative Negative See order comments RBC, Urine 0-2 0 - 2 /HPF See orde r comments WBC 0-5 0 - 5 /HPF See order comments Squamous Epithelial, Urine 11-20 0 - 2 /HPF See order comments Bacteria, Urine Trace None Seen See order comments Hyaline Casts, Urine 0-2 0 - 2 /LPF See order comments 11/24/2024 10:2 9 AM EDT 11/24/2024 10:29 AM EDT us Felix Flanagan MD LAB URINE ORDERABLES Final Re sult AFSHAN See order comments [place] [address] * Creatinine (11/24/2024 10:12 AM EDT) Creatinine Serum 0.78 0.5 - 1.4 mg/dL See order comments eGFR >60 See order comments Comment: Chronic Kidney Disease: ??Estimated GFR < 60 mL/min/1.73m2 Severe Kidney Disease: ??Estimated GFR < 15 mL/min/1.73m2 11/24/2024 10:1 2 AM EDT 11/24/2024 10:12 AM EDT us Felix Flanagan MD LAB BLOOD ORDERABLES Final Re sult Performing Organization Address [facility] de Phone Number [place] See order comments [place] [address] * BUN (11/24/2024 10:12 AM EDT) BUN 16 9 - 16 mg/dL See order comments 11/24/2024 10:1 2 AM EDT 11/24/2024 10:12 AM EDT us Felix Flanagan MD LAB BLOOD ORDERABLES Final Re sult Performing Organization Address [facility] de Phone Number [place] See order comments [place] [address] * Calcium (11/24/2024 10:12 AM EDT) Calcium 9.6 8.4 - 10.2 mg/dL See order comments 11/24/2024 10:1 2 AM EDT 11/24/2024 10:12 AM EDT us Felix Flanagan MD LAB BLOOD ORDERABLES Final Re sult Performing Organization Address [facility] Co de Phone Number [place] See order comments [place] [address] * Electrolyte panel (11/24/2024 10:12 AM EDT) Sodium 141 135 - 145 mmol/L See order comments Potassium 4.4 3.3 - 5.1 mmol/L See order comments Chloride 106 96 - 108 mmol/L See order comments Bicarbonate (CO2) 24 22 - 29 mmol/L See order comments Anion Gap 15 12 - 20 See order comments 11/24/2024 10:1 2 AM EDT 11/24/2024 10:12 AM EDT Felix Flanagan MD LAB BLOOD ORDERABLES Final Re sult Performing Organization Address [facility] Phone Number [facility] See order comments [place] [address] * Hemoglobin A1c (10/25/2021 11:20 AM EDT) Hemoglobin A1C 6.5 % [facility]AL Comment: ?Hemoglobin A1C Reference Range ? Adults: ??4.8 - 6.0 % ? Non diabetic: ??< 6.0 % ? Goal: ??< 7.0 % Additional Action Suggested: ??> 8.0 % Note: ??Hemoglobin A1c results are invalid for patients ? with abnormal amounts of HbF. ??Blood transfusions ? may impact the HbA1c concentration in the patient ? sample. Estimated Average Glucose 140 mg/dL [facility] Comment: eAG = Estimated average glucose which is %A1C expressed as average glucose, using the formula of the [id number] Average Glucose study (ADAG), Diabetes Care, Vol.31,#8, Feb. 2007 Blood (Blood, Venous) 10/25/2021 11:20 AM EDT 10/25/2021 11:20 AM EDT Felix Flanagan MD LAB BLOOD ORDERABLES Final Re sult Performing Organization Address [facility] de Phone Number [place] from Last 3 Months or Most Recently Relevant to Health Maintenance Insurance [facility] Medicare [facility] Medicare Care Teams Tacking Stitch Remover Relationship Specialty Start Date End Date Zen Patton MD [address] [place] [phone] PCP - General 08/09/20
--- OUTSIDE RECORDS SUMMARY | 2024-11-24 11:19 | XMS_ITS | Encounter Summary ---
Author Organization [facility] Address [address] [facility] [address] [place] [address] Phone Care Team Providers Care City Dispatch Supervisor Name Role Phone Zen Patton MD Primary Care Provider Encounter Details Date Type Department Care Team (Late Contact Info) Description 09/22/2021 Telephone [facility] [address] [facility] [address] [place] [address] Felix Flanagan MD [address] [facility] [address] [place] [address] Social History Tobacco Use Types Packs/Day Years [...] on file Sexual Orientation Not on file documented as of this encounter Miscellaneous Notes * Telephone Encounter - Afsaneh Finney - 09/22/2021 2:56 PM EST Pt called she would like u/a test for her appt on 09/29/21. Please fax to [phone]. Thank you documented in this encounter Plan of Treatment Upcoming Encounters Date Type Department Care Team (Late st Contact Info) Description 12/01/2024 1:30 PM EDT Office Visit [facility] [address] [place] [address] Felix Flanagan MD [address] [facility] [address] [place] [phone] documented as of this encounter Procedures Procedure Name Priority Date/Time Associated Diagnosis Comments ALBUMIN, URINE, RANDOM Routine 10/25/2021 12:21 PM EDT URINALYSIS Routine 10/25/2021 12:21 PM EDT CREATININE, BLOOD Routine 10/25/2021 11: 20 AM EDT BUN Routine 10/25/2021 11:20 AM EDT CALCIUM Routine 10/25/2021 11:20 AM EDT ELECTROLYTE PANEL Routine 10/25/2021 11: 20 AM EDT documented in this encounter Results * Albumin, urine, random (10/25/2021 12:21 PM EDT) Creatinine, Urine 38.79 mg/dL [place] Urine Microalbumin <5.0 mg/L [place] Microalbumin/Crea tinine Ratio TNP ug/mg cr [place] Comment: Unable to calculate albumin/creatinine ratio due to low microalbumin or creatinine result. 10/25/2021 12:2 1 PM EDT 10/25/2021 12:21 PM EDT us Felix Flanagan MD LAB URINE ORDERABLES Final Re sult [place] * Urinalysis (10/25/2021 12:21 PM EDT) Color Urine YELLOW [place] Appearance Urine CLEAR [place] pH Urine 6.0 5.0 - 8.0 [place] Glucose Urine NEG NEG MG/DL [place] Blood, Urine NEG NEG [place] Specific [place] Urine 1.010 1.005 - 1.025 [place] Protein Urine NEG NEG-TRACE MG/DL [place] Ketones, Urine NEG NEG MG/DL [place] Nitrite, Urine NEG NEG [place] Leukocyte Esterase Urine NEG NEG [place] 10/25/2021 12:2 1 PM EDT 10/25/2021 12:21 PM EDT Felix Flanagan MD LAB URINE ORDERABLES Final Re sult Performing Organization Address [facility] de Phone Number [place]AL * Calcium (10/25/2021 11:20 AM EDT) Calcium 9.9 8.4 - 10.2 mg/dL [place] 10/25/2021 11:2 0 AM EDT 10/25/2021 11:20 AM EDT Felix Flanagan MD LAB BLOOD ORDERABLES Final Re sult Performing Organization Address [facility] de Phone Number [place] * Creatinine (10/25/2021 11:20 AM EDT) Creatinine Serum 0.95 0.5 - 1.4 mg/dL [place] eGFR 57 [place] Comment: NOTE: ??For -[place] individuals, multiply the result ? by 1.210. Chronic Kidney Disease: ??Estimated GFR < 60 mL/min/1.73m2 Severe Kidney Disease: ??Estimated GFR < 15 mL/min/1.73m2 10/25/2021 11:2 0 AM EDT 10/25/2021 11:20 AM EDT Felix Flanagan MD LAB BLOOD ORDERABLES Final Re sult Performing Organization Address [facility] Co de Phone Number [place] * (ABNORMAL) BUN (10/25/2021 11:20 AM EDT) BUN 20(H) 9 - 16 mg/dL [place] 10/25/2021 11:2 0 AM EDT 10/25/2021 11:20 AM EDT Felix Flanagan MD LAB BLOOD ORDERABLES Final Re sult [place] * Electrolyte panel (10/25/2021 11:20 AM EDT) Sodium 142 135 - 145 mmol/L [place] Potassium 4.7 3.3 - 5.1 mmol/L [place] Chloride 106 96 - 108 mmol/L [place] Bicarbonate (CO2) 29 22 - 29 mmol/L [place] Anion Gap 12 12 - 20 [place] 10/25/2021 11:2 0 AM EDT 10/25/2021 11:20 AM EDT Felix Flanagan MD LAB BLOOD ORDERABLES Final Re sult Performing Organization Address [facility] Co de Phone Number [place] documented in this encounter Visit Diagnoses Not on filedocumented in this encounter Care Teams City Dispatch Supervisor Relationship Specialty Start Date End Date Zen Patton MD [address] [place] [phone] PCP - General 08/09/20 documented as of this encounter
--- OUTSIDE RECORDS SUMMARY | 2024-11-24 11:19 | XMS_ITS | Encounter Summary ---
Author Organization [facility] Address [address] [place] [phone] Phone Care Team Providers Care Drainage Design Coordinator Name Role Phone Zen Patton MD Primary Care Provider [phone] Encounter Details Date Type Department Care Team (Late Contact Info) Description 11/24/2024 Orders Only [facility] [address] [place] [phone] Felix Flanagan MD [address] [phone] Social History Tobacco Use Types Packs/Day [...] on file documented as of this encounter Plan of Treatment Upcoming Encounters Date Type Department Care Team (Late st Contact Info) Description 12/01/2024 1:30 PM EDT Office Visit [facility] [address] [place] [address] Felix lFanagan MD [address] [phone] documented as of this encounter Procedures Procedure Name Priority Date/Time Associated Diagnosis Comments URINALYSIS WITH MICROSCOPIC Routine 11/24/2024 10:29 AM EDT CREATININE, BLOOD Routine 11/24/2024 10: 12 AM EDT BUN Routine 11/24/2024 10:12 AM EDT CALCIUM Routine 11/24/2024 10:12 AM EDT ELECTROLYTE PANEL Routine 11/24/2024 10: 12 AM EDT documented in this encounter Results * Urinalysis with microscopic (11/24/2024 10:29 AM EDT) Color Urine Yellow See orde r comments Appearance Urine Clear See order comments pH Urine 7.0 5.0 - 9.0 See order comments Glucose Urine Negative Negative mg/dL See order comments Blood, Urine Negative Negative See ord er comments Specific [place] Urine 1.025 1.005 - 1.025 See order [...] 9 AM EDT 11/24/2024 10:29 AM EDT Felix Flanagan MD LAB URINE ORDERABLES Final Re sult [place] See order comments [place] [address] * Calcium (11/24/2024 10:12 AM EDT) Calcium 9.6 8.4 - 10.2 mg/dL See order comments 11/24/2024 10:1 2 AM EDT 11/24/2024 10:12 AM EDT us Felix Flanagan MD LAB BLOOD ORDERABLES Final Re sult Performing Organization Address [facility] Co de Phone Number [place] See order comments [place] [address] * Creatinine (11/24/2024 10:12 AM EDT) Creatinine Serum 0.78 0.5 - 1.4 mg/dL See order comments eGFR >60 See order comments Comment: Chronic Kidney Disease: ??Estimated GFR < 60 mL/min/1.73m2 Severe Kidney Disease: ??Estimated GFR < 15 mL/min/1.73m2 11/24/2024 10:1 2 AM EDT 11/24/2024 10:12 AM EDT us Felix Flanagan MD LAB BLOOD ORDERABLES Final Re sult Performing Organization Address [facility] de Phone Number [facility] See order comments [place] [address] * BUN (11/24/2024 10:12 AM EDT) BUN 16 9 - 16 mg/dL See order comments 11/24/2024 10:1 2 AM EDT 11/24/2024 10:12 AM EDT us Felix Flanagan MD LAB BLOOD ORDERABLES Final Re sult Performing Organization Address [facility] de Phone Number [facility] See order comments [place] [address] * Electrolyte panel (11/24/2024 10:12 AM EDT) [...] MD LAB BLOOD ORDERABLES Final Re sult [place] See order comments [place] [address] documented in this encounter Visit Diagnoses Not on filedocumented in this encounter Care Teams Drainage Design Coordinator Relationship Specialty Start Date End Date Zen Patton MD [address] [place] [phone] PCP - General 08/09/20 documented as of this encounter
--- OUTSIDE RECORDS SUMMARY | 2024-11-24 11:19 | XMS_ITS ---
Author Organization [facility] Address [address] [place] [address] Care Team Providers Care Oil Distributor Tender Name Role Phone Oc FORD, Candelaria Primary Care Provider Unav ailable Kimberly Tang Unavailable [phone] REASON FOR VISIT moved apt back to 05/21 Encounters Encounter Location Date Provider Diagnosis [address] [address] 06/03/2024 Kimberly Tang Plan Of Treatment Next Appt Details Provider Name:Kimberly weston, 01/20/2025 03:15:00 PM, [address] [place] [address], [phone], Progress Notes * Karma CURRY PDOB:[birth year] (79 yo F)Acc No.[id number]:06/03/2024 Progress Note Patient:?Karma CURRY Provider:?Kimberly Tang DPM :1945???Age:78 Y???Sex:Female D ate:06/03/2024 Address:[address] [place] [address] Pcp:Candelaria Renae NP Subjective: * Chief Complaints: * ???1. Moved apt back to 04/30 3. * Medical History:? Objective: * Vitals:? Assessment: Plan: * Treatment: * Images: * The named appointment provid er may or may not be the originator of this progress note, and it is not deemed complete until electronically signed by the appointment provider. Sign off status: Pending * Provider:?Kimberly Tang DPM Date:?11/2023 Generated for Jeremy cagle/Nyla/Moira on:?11/24/2024 11:18 AM EDT
--- OUTSIDE RECORDS SUMMARY | 2024-11-24 11:19 | XMS_ITS ---
Author Organization [facility] Address [address] [place] [address] Care Team Providers Care Machine Skiver Name Role Phone Oc FORD, Candelaria Primary Care Provider Unav ailable Rashmienrico Kimberly Unavailable [phone] Allergies Allergen (clinical drug ingredient) Drug/Non Drug Allergy documented on EMR Reaction Allergy Type Onset Date Status ciprofloxacin Cipro Unknown Drug Allergy Act casey Levaquin Unknown Drug Allergy Active REASON FOR VISIT At Risk Footcare, Toe Irritation Medications Medication SIG (Take, Route, Frequency, Duration) Notes Start Date End Date Status buPROPion HCl ER (SR) 200 MG 1 tablet in the morning Orally Once a day for 30 day(s) Not-Taking Vitamin C Not-Taking Extra Depth Orthopedic Shoes (1 Pair) with Customized Heat Molded Multidensity Innersoles (3 Pair) as directed Dx: NIDDM/Polyneuropathy (E11.42), Hammertoe Foot Deformity (M20.41,M20.42), Preulcerative Skin Lesion(s) (L85.1 11/09/2020 Not-Taking Lactic Acid Not-Taki ng Timoptic 0.25 % 1 drop into affected eye Ophthalmic Once a day Not-Taking hydroCHLOROthiazide 12.5 MG 1 capsule in the morning Orally Once a day for 30 day(s) Not-Taking Albuterol PRN Not-Taking Vitamin K2 Active Tresiba Active Vitamin D3 Active Meclizine HCl 25 MG 1 tablet as needed Orally Once a day for 30 day(s) PRN Active metFORMIN HCl 1000 MG 1 tablet with a me al Orally Once a day for 30 day(s) Active NovoLOG Active Travatan Active Multivitamin Active Losartan Potassium 100 MG 1 tablet Orall y Once a day for 30 day(s) Active Magnesium 200 MG 2 tablets with a richy l Orally Once a day for 30 day(s) Active Levothyroxine Sodium 150 MCG 1 tablet in the morning on an empty stomach Orally Once a day for 30 day(s) Active Liothyronine Sodium 5 MCG 1 tablet on an empty stomach Orally Once a day for 30 day(s) Active Fish Oil Active Plavix Active Aspirin 81 81 MG 1 tablet Orally Once a day Active B Complex Active Timolol Hemihydrate 0.25 % 1 drop into a ffected eye Ophthalmic Once a day Active amLODIPine Besylate 10 MG 1 tablet Orall y Once a day for 30 day(s) Not-Taking Clopidogrel Bisulfate Active Extra Depth Orthopedic Shoes (1 Pair) with Customized Heat Molded Multidensity Innersoles (3 Pair) as directed Dx: NIDDM/Polyneuropathy (E11.42), Hammertoe Foot Deformity (M20.41,M20.42), Preulcerative Skin Lesion(s) (L85.1 Active Custom Orthotics as directed 11/09/2020 Not-Taking Social History Tobacco Use: Social History Observation Description Date Details (start date - stop date) Never Smoker NA - NA Tobacco use other than smoking: Question Answer Notes Are you an other tobacco user? 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 ; Other hammer toe(s) (acquired), left foot M20.42 ; Tinea unguium B35.1 ; Other hammer toe(s) (acquired), right foot M20.41 and Atherosclerosis of artery of both lower extremities I70.203 Assessments Encounter Date Diagnosis (ICD Code) Assessment Notes Treatment Notes Treatment Clinical Notes Section Notes 08/19/2024 Type 2 diabetes mellitus with polyneuropathy (ICD-10 - E11.42) 08/19/2024 Other hammer toe(s) (acquired), left foot (ICD-10 - M20.42) 08/19/2024 Tinea unguium (ICD-10 - B35.1) 08/19/2024 Other hammer toe(s) (acquired), right foot (ICD-10 - M20.41) Patient Educated with: DIABETIC FOOT CARE INSTRUCTIONS. pdf (DIABETIC FOOT CARE INSTRUCTIONS. pdf) 08/19/2024 Atherosclerosis of artery of both lower extremities (ICD-10 - I70.203) Plan Of Treatment Medication Medication Name Sig Start Date Stop Date Notes Extra Depth Orthopedic Shoes (1 Pair) with Customized Heat Molded Multidensity Innersoles (3 Pair) as directed Dx: NIDDM/Polyneuropathy (E11.42), Hammertoe Foot Deformity (M20.41,M20.42), Preulcerative Skin Lesion(s) (L85.1 Treatment Notes Assessment Notes Other hammer toe(s) (acquired), right fo ot Patient Educated with: DIABETIC FOOT CARE INSTRUCTIONS.pdf (DIABETIC FOOT CARE INSTRUCTIONS.pdf) Next Appt Details Follow Up: 2 Months, Reason: Provider Name:Kimberly weston, 01/20/2025 03:15:00 PM, [address] [place] [address], [phone], Procedure Notes * Category Sub-Category Detail Notes Keratoma Treatment Parring or Cutting o f Benign Hyperkeratotic Lesion(s) (-57) More than 4 Lesions - Due to the at risk nature of the patients medical condition as documented in the exam findings, performance of this keratoderma treatment is medically necessary as its management by an unskilled/untrained nonprofessional would put this patients foot and overall health at risk. Therefore, the benign hyperkeratotic lesions, ( 8 ) in total, locations as stated and described in the exam ( TA, T5, SUB MTH (s), 1, 5, B/L , Heel(s), B/L ), were pared, and/or cut utilizing a sterile 15 blade, tissue nippers, and/or power dremel instrumentation by the physician of record - 30604 Debride Nails 1-5 Procedure: Due to the cli nical pathology outlined in the exam findings, performance of this nail treatment is medically necessary as its management by an unskilled/untrained nonprofessional would put this patients foot and overall health at risk. Therefore, debridement to affected nail(s), as described in exam ( TA, T5 ), was performed exclusively by the physician of record to reduce/remove overall nail length, girth, thickness, subungual debris, and necrotic tissue, by manual and/or electrical means through the use of a nail nipper and/or dremel stylegrinder, to a more viable healthy nail plate or bed tissue 5 nails or fewer in number. Silver nitrate was used for any petechial bleeding as necessary. Definitive antifungal treatment options, both pharmaceutical and surgical, have been reviewed and discussed with the patient. The patient solely prefers the use of intermittent/as needed professional debridement services for their nail condition and understands that additional periodic treatments may be required as necessary to maintain effective symptomatic relief - 40889 Nail Reduction Nail Reduction Trimming of dyst rophic nails performed to reduce/remove overall nail length and girth, by manual and electrical means with use of a nail nipper and/or dremel, to more viable healthy nail plate or bed tissue 6-10 (G0127) Progress Notes * Karma CURRY PDOB:[birth year] (79 yo F)Acc No.[id number]:08/19/2024 Progress Note Patient:?Karma CURRY Provider:?Kimberly Tang DPM :1945???Age:79 Y???Sex:Female D ate:08/19/2024 Address:[address] [place], [place] [id number] Pcp:Candelaria Renae NP Subjective: * Chief Complaints: * ???At Risk FootcareToe Irrit ation * HPI: ???At Risk footcare:?Pt States Last PCP Visit:?Date?06/29/2024 ???Toe pain:?Location:?B/L feet.?Duration:?several years.?Course:?worse.?Aggravated by:?shoes, any pressure.?Treatments:?change in shoes.? * ROS:?General/Constitutional:?Nausea?denies.?Vomiting?denies.?Hunger Thirst?denies.?Loss appetite?denies.?Chills?denies.?Fatigue?admits.?Fever?denies.?Night Sweats?denies.?Unexplained weight loss?denies.?Unexplained weight gain?denies.?HEENTM:?Dentures?denies.?Dizziness?denies.?Glasses/contacts?admits.?Retinopathy?den ies.?Blurred/double vision?denies.?TMJ?denies.?Discharge/drainage?denies.?Implants?denies.?Sore throat?denies.?Dental implants?denies.?Hard of hearing ?denies.?Difficulty chewing/swallowing/speaking?denies.?Nose bleeds?denies.?Sore mouth?denies.?Respiratory:?On O xygen?denies.?Pneumonia/pleurisy?denies.?Bronchitis?denies.?Emphysema?denies.?Co ughing?denies.?Cough blood?denies.?Shortness of breath?denies.?Wheezing?admits.?Cardiovascular:?Pacemaker?denies.?MVP?denies.?WPW?denies.?CHF?denies.?Heart attack?denies.?Septal defect?denies.?Rapid beat?denies.?Chest pain ?denies.?Atrial Fib.?denies.?Murmur/Palpitations?denies.?Gastrointestinal:?Hemorrhoids?denies.?Stomach/Abdominal pain?denies.?Dark blood stool?denies.?Irritable bowel ?denies.?Constipation?denies.?Diarrhea?denies.?Hematology:?Swelling?admits.?Clots?denies.?Varicose Veins?denies.?Bruising?denies.?Bleeding problem?denies.?Genitourinary:?Blood urine?denies.?Frequent/Painfu/urination/bladder control?denies.?Kidney stones?denies.?Infection (UTI)?denies.?Nephropathy?denies.?sex trans dis (STD)?denies.?Prostate?denies.?Musculoskeletal:?Hammertoes?admits.?Bunions?admits.?Back Pain?admits.?Muscle Cramps/ Resting?admits.?Muscle cramps / walking?admits.?Generalized aches and pains?admits.?Weakness?denies.?Integ.:?Ortiz?denies.?Scars?denies.?Corns/calluses?admits.?Ingrown nails?denies.?Painful nails?denies.?Open Sores?denies.?Rashes?admits.?Neurologic:?Difficulty sleeping?admits.?Brain disorder?denies.?Numbness?admits.?Balance t rouble?denies.?Confusion?denies.?Fainting/blackouts?denies.?Tingling?admits.?Stepan mors?denies.? * Medical History:? * Surgical History:?right knee replacement 11/2001left knee replacement 11/2012hysterectomy 11/2002mastectomy ngiogram and stent placed in the popliteal artery 12/27/22 * Hospitalization/Major Diagno stic Procedure:?Denies Past Hospitalization * Family History:?Mother: dece ased, high blood pressure, cancer, poor circulation, diagnosed with Diabetic - NIDDM, Family history of arthritis.?Father: , high blood pressure, stroke, high blood pressure, cancer, kidney/liver disease, foot problems, heart attack, high blood pressure, cancer, poor circulation, diagnosed with Diabetic - NIDDM, Family history of arthritis.?Siblings: high blood pressure, high blood pressure, stroke, high blood pressure, cancer, high blood pressure, stroke, high blood pressure, cancer, kidney/liver disease, foot problems, heart attack, high blood pressure, cancer, poor circulation, diagnosed with Diabetic - NIDDM, Family history of arthritis.? * Social History:?Tobacco Use:?Tobacco use other than smoking?Are you an other tobacco user??No ?Tobacco Control (Standard)?Tobacco use:?Nonsmoker * Medications:?TakingClopidogr el Bisulfate Aspirin 81 81 MG Tablet Delayed Release 1 tablet Orally Once a day Plavix Timolol Hemihydrate 0.25 % Solution 1 drop into affected eye Ophthalmic Once a day B Complex Fish Oil Levothyroxine Sodium 150 MCG Tablet 1 tablet in the morning on an empty stomach Orally Once a day Liothyronine Sodium 5 MCG Tablet 1 tablet on an empty stomach Orally Once a day Losartan Potassium 100 MG Tablet 1 tablet Orally Once a day Magnesium 200 MG Tablet 2 tablets with a meal Orally Once a day Meclizine HCl 25 MG Tablet Chewable 1 tablet as needed Orally Once a day , Notes to Pharmacist: PRNmetFORMIN HCl 1000 MG Tablet 1 tablet with a meal Orally Once a day Multivitamin NovoLOG Travatan Tresiba Vitamin D3 Vitamin K2 Extra Depth Orthopedic Shoes (1 Pair) with Customized Heat Molded Multidensity Innersoles (3 Pair) as directed Dx: NIDDM/Polyneuropathy (E11.42), Hammertoe Foot Deformity (M20.41,M20.42), Preulcerative Skin Lesion(s) (L85.1 Taking Clopidogrel Bisulfate Taking Aspirin 81 81 MG Tablet Delayed Release 1 tablet Orally Once a day Taking Plavix Taking Timolol Hemihydrate 0.25 % Solution 1 drop into affected eye Ophthalmic Once a day Taking B Complex Taking Fish Oil Taking Levothyroxine Sodium 150 MCG Tablet 1 tablet in the morning on an empty stomach Orally Once a day Taking Liothyronine Sodium 5 MCG Tablet 1 tablet on an empty stomach Orally Once a day Taking Losartan Potassium 100 MG Tablet 1 tablet Orally Once a day Taking Magnesium 200 MG Tablet 2 tablets with a meal Orally Once a day Taking Meclizine HCl 25 MG Tablet Chewable 1 tablet as needed Orally Once a day , Notes to Pharmacist: PRNTaking metFORMIN HCl 1000 MG Tablet 1 tablet with a meal Orally Once a day Taking Multivitamin Taking NovoLOG Taking Travatan Taking Tresiba Taking Vitamin D3 Taking Vitamin K2 Taking Extra Depth Orthopedic Shoes (1 Pair) with Customized Heat Molded Multidensity Innersoles (3 Pair) as directed Dx: NIDDM/Polyneuropathy (E11.42), Hammertoe Foot Deformity (M20.41,M20.42), Preulcerative Skin Lesion(s) (L85.1 Not-Taking/PRNamLODIPine Besylate 10 MG Tablet 1 tablet Orally Once a day hydroCHLOROthiazide 12.5 MG Capsule 1 capsule in the morning Orally Once a day Albuterol , Notes to Pharmacist: PRNbuPROPion HCl ER (SR) 200 MG Tablet Extended Release 12 Hour 1 tablet in the morning Orally Once a day Lactic Acid Timoptic 0.25 % Solution 1 drop into affected eye Ophthalmic Once a day Vitamin C Extra Depth Orthopedic Shoes (1 Pair) with Customized Heat Molded Multidensity Innersoles (3 Pair) as directed Dx: NIDDM/Polyneuropathy (E11.42), Hammertoe Foot Deformity (M20.41,M20.42), Preulcerative Skin Lesion(s) (L85.1 Custom Orthotics as directed Medication List reviewed and reconciled with the patientNot-Taking/PRN amLODIPine Besylate 10 MG Tablet 1 tablet Orally Once a day Not-Taking/PRN hydroCHLOROthiazide 12.5 MG Capsule 1 capsule in the morning Orally Once a day Not-Taking/PRN Albuterol , Notes to Pharmacist: PRNNot-Taking/PRN buPROPion HCl ER (SR) 200 MG Tablet Extended Release 12 Hour 1 tablet in the morning Orally Once a day Not-Taking/PRN Lactic Acid Not-Taking/PRN Timoptic 0.25 % Solution 1 drop into affected eye Ophthalmic Once a day Not-Taking/PRN Vitamin C Not-Taking/PRN Extra Depth Orthopedic Shoes (1 Pair) with Customized Heat Molded Multidensity Innersoles (3 Pair) as directed Dx: NIDDM/Polyneuropathy (E11.42), Hammertoe Foot Deformity (M20.41,M20.42), Preulcerative Skin Lesion(s) (L85.1 Not-Taking/PRN Custom Orthotics as directed Medication List reviewed and reconciled with the patient * Allergies:?CiproLevaquinyes[ Allergies Verified] Objective: * Vitals:?Ht: 5 ft 1 in, Wt: 3 00, BMI: 56.68, Shoe size: 10, BP: 118/67 mm Hg, BS: 128, Wt-k.08 kg. * ???Past Orders: ???Lab:HEMOGLOBIN A1C (GLYCO HEMOGLOBIN) (Order Date - 06/29/2024) (Collection Date & Time - 06/29/2024 11:29 AM) ? Value Reference Range ?HEMOGLOBIN A1C % (HH) 7.9 * Examination: ???Ophthalmology Referral: ?DIABETES EYE EXAM?Procedure Performed:?Yes ?Date of Exam Performed?06/29/2024 ?Findings of Diabetic Eye Exam:?no retinopathy?Dermatologic: ?SKIN FINDINGS:?Skin exam reveals Keratotic lesion(s) located at, Medial plantar, TA, T5, SUB MTH (s), 1, 5, B/L , Heel(s), B/L , Skin STILL, shows sign(s) of, dryness, scaling, in a stocking fashion, no fissure(s) present, B/L.?Neurological: ?SENSORY:? Neurological exam demonstrates, reduced light touch sensation, reduced sharp/dull pin prick discrimination , reduced vibration sensation, reduced proprioception sensation, in a stocking fashion, plantar aspects, 5.07 monofilament test performed at plantar aspects of 5 varied sites per foot shows sensation, reduced , at Forefoot.?Nails: ?NAILS are:?Elongated, overgrown, dystrophic, lytic, greater than 3mm thick, discolored and friable with crumbly malodorous subungual debris, TA, T5, remaining nails are elongated, overgrown, dystrophic.?Vascular: ?DP PULSES (B):?2/4, B/L.?PT PULSES (B):?2/4, B/L.?CAPILLARY FILL TIME:? 3 secs. per digit, B/L.?TROPHIC CONDITION-TEXTURE/ELASTICITY/TURGOR/HAIR GROWTH (B):?decreased, B/L sparce hair growth.?TEMPERTURE GRADIENT (C):?normal, warm to cool, proximal to distal, B/L.?EDEMA (C):? 1/4 B/L, pitting, Leg(s), B/L.?Orthopedic: ?MUSCLE STRENGTH:?5/5 all groups in a symmetrical fashion, B/L.?BUNION:?Medially prominent 1st MPJ , Lateral tracking 1st MPJ incompletely reducible , LEFT.?DIGITAL DEFORMITIES:?Digital contracture, PIPJ, 2-5 B/L, incompl-reducible to push-up test, no over, nor underlapping,?there is?evidence of shoe producing skin irritation.?FOOTWEAR:?worn, non-supportive, shoe gear properties exacerbate patient's foot/toe deformity.?General Examination: ?GENERAL APPEARANCE:?Reveals a pleasant, alert, well nourished, well- developed, well hydrated individual, who demonstrates proper attention to hygiene/body habitus, and is in no acute distress, Pt serves as own historian for office visit today.?ORIENTED:?person, place, and time.?FOOT EXAM:?Lower Extremity Neurological Exam performed:?Yes ?Visual exam of foot performed:?Yes ?Date?08/19/2024 ?Sensory testing performed:?sensations diminished ?Footwear Evaluation?Footwear Evaluation performed:?Yes??? Assessment: * Assessment: 1.?Type 2 diabetes mellitus with polyneuropathy - E11.42???2.?Other hammer toe(s) (acquired), left foot - M20.42 (Primary)???Specify :Chronic problem, Worse (4),Rx Management (4)???3.?Tinea unguium - B35.1???4.?Other hammer toe(s) (acquired), right foot - M20.41???Specify :Chronic problem, Worse (4),Rx Management (4)???5.?Atherosclerosis of artery of both lower extremities - I70.203??? Plan: * Treatment: * Procedures:?Debride Nails 1-5:?Procedure:?Due to the clinical pathology outlined in the exam findings, performance of this nail treatment is medically necessary as its management by an unskilled/untrained nonprofessional would put this patients foot and overall health at risk. Therefore, debridement to affected nail(s), as described in exam ( TA, T5 ), was performed exclusively by the physician of record to reduce/remove overall nail length, girth, thickness, subungual debris, and necrotic tissue, by manual and/or electrical means through the use of a nail nipper and/or dremel stylegrinder, to a more viable healthy nail plate or bed tissue 5 nails or fewer in number. Silver nitrate was used for any petechial bleeding as necessary. Definitive antifungal treatment options, both pharmaceutical and surgical, have been reviewed and discussed with the patient. The patient solely prefers the use of intermittent/as needed professional debridement services for their nail condition and understands that additional periodic treatments may be required as necessary to maintain effective symptomatic relief - 24055.?Keratoma Treatment:?Parring or Cutting of Benign Hyperkeratotic Lesion(s)?(-57) More than 4 Lesions - Due to the at risk nature of the patients medical condition as documented in the exam findings, performance of this keratoderma treatment is medically necessary as its management by an unskilled/untrained nonprofessional would put this patients foot and overall health at risk. Therefore, the benign hyperkeratotic lesions, ( 8 ) in total, locations as stated and described in the exam (?TA,?T5,?SUB MTH (s),?1,?5,?B/L?,?Heel(s),?B/L?), were pared, and/or cut utilizing a sterile 15 blade, tissue nippers, and/or power dremel instrumentation by the physician of record - 12801.?Nail Reduction:?Nail Reduction?Trimming of dystrophic nails performed to reduce/remove overall nail length and girth, by manual and electrical means with use of a nail nipper and/or dremel, to more viable healthy nail plate or bed tissue 6-10 (G0127).? * Procedure Codes:?87616 DEBRI DE NAIL, 1-5, Modifiers: XS 93415 TRIM SKIN LESIONS, OVER 4, Modifiers: XS G0127 TRIMMING DYSTROPHIC NAILS ANY #, Modifiers: XS * Preventive Medicine:? ??Counseling:?Discussion:?-13: Office or other outpatient visit for the evaluation and management of an established patient, which required a medically appropriate history and/or examination and LOW level of DECISION MAKING for: 1 STABLE ACUTE UNCOMPLICATED PROBLEM, 2 OR MORE MINOR PROBLEMS, OR 1 STABLE CHRONIC PROBLEM, THAT POSE(S) A LOW RISK FOR MORBIDITY/MORTALITY. The visit on the day of the encounter encompassed interpreting the data and educating the patient as to the nature of their condition, treatment options available according to their individual PMH, meds, allergies, and overall health/living conditions, as well as any potential risks or complications that may occur from a failure to adhere to, and participate in, the recommended course of therapy. The discussion included a complete verbal, and/or written explanation of the examination results, any x-rays taken, the proposed diagnosis, and outline of the treatment plan. A schedule for future care needs was also explained. The patient verbalized an understanding of the instructions at this time and agreed to be an active participant in their treatment. If the patient should think of any questions or concerns after the visit, I have encouraged the patient to call the office.?Digital Surgery:?Digital surgery was discussed with the patient, We elected to try conservative treatment at the present time, due to the patients medical history and increased asssociated post-operative risks.?Digital Treatment:?HT- I explained to the patient the possible etiologies of Hammertoes, including genetics/foot type/shoegear/activity level/exercise routine and the risks/benefits of all the different treatment options for their pain including: No treatment at all, Rest, Ice, New/supportive/wider/deeper Shoegear, Digital Padding/Strapping/Taping/Bracing/Gel protective sleeves, Foot/Ankle AFO Bracing, Stretching exercises, Deep Tissue Massage, Arch support/shoe inserts with splay metatarsal padding, and Custom orthoses. I insisted that any digital devices be removed daily and not worn overnight for safety. The patient is to carefully examine the toes daily for any skin irritation while using any splinting or padding device. The advantages and disadvantages of each option were discussed and the patients questions re: shoegear, padding, custom vs prefabricated inserts, activity level, and consistency in home treatment regimens for optimal success were answered to their verbally confirmed satisfaction.?Shoe Gear Counseling:?SHOE Rx - The patient was counseled in great detail on their muscoloskeletal foot and toe deformities which coincided with the dermatological presentations visualized on exam. We discussed how their deformities put the integrity of their feet at risk for potential pedal complications which makes the accomidative diabetic shoes and cutomizable inserts medically necessary. We discussed the different shoe and insert treatment types and options, as well as the important advantages for adhering to regularly wearing these accomidative devices daily. The patient was made aware of the fact that a failure to abide by these recommedations may be deleterious to their foot health as they are able to prevent many pedal complications such as skin irritation, skin ulceration, infection, and even loss of toe/foot/leg/or life. Time was also spent with the patient dispensing and discussing proper diabetic footcare techniques including daily skin moisturization, daily foot inspection for any interruption in skin integrity including open lesions, or sign of infection such as redness/malodor/drainage/swelling. Also discussed and recommended were procedures regarding daily shoe inspection for the presence of internal foreign bodies as well as any visualized irregular shoe or insert wear. Patient questions re: shoes, inserts, and self foot inspections were answered to their satisfaction as the patient verbally confirmed a full understanding of the above information. A Rx for Extra Depth Orthopedic Shoes with 3 pair of custom heat-molded inserts was dispensed, Patient to obtain shoes hopefully soon.? ??Screening/Special Tests:?Fall Risk?Assessment:?Performed ?Screening:?No falls in the past year ?FALLS: Screening for Future Fall Risk?Have you had two or more falls in the past year??No ?Have you had any falls with injury in the past year??No * Follow Up:?2 Months * Images: * Sign off status: Completed true * Provider:?Kimberly Tang DPM Date:? Generated for Jeremy cagle/Nyla/Moira on:?11/24/2024 11:19 AM EDT History and Physical Notes * HPI (History of Present Illness) Category Sub-Category Detail Notes Category Not es Toe pain Location: B/L feet Duration: several years Course: worse Aggravated by: shoes, any pressure Treatments: change in shoes At Risk footcare Pt States Last PCP Visit: Date: 4 Examination Category Sub-Category Detail Notes Category Not es Neurological SENSORY: Neurological exa m demonstrates, reduced light touch sensation, reduced sharp/dull pin prick discrimination , reduced vibration sensation, reduced proprioception sensation, in a stocking fashion, plantar aspects, 5.07 monofilament test performed at plantar aspects of 5 varied sites per foot shows sensation, reduced , at Forefoot Dermatologic SKIN FINDINGS: Skin exam reveal s Keratotic lesion(s) located at, Medial plantar, TA, T5, SUB MTH (s), 1, 5, B/L , Heel(s), B/L , Skin STILL, shows sign(s) of, dryness, scaling, in a stocking fashion, no fissure(s) present, B/L Orthopedic BUNION: Medially promine nt 1st MPJ , Lateral tracking 1st MPJ incompletely reducible , LEFT FOOTWEAR EVALUATION: worn, non-supportiv e, shoe gear properties exacerbate patient's foot/toe deformity DIGITAL DEFORMITIES: Digital contracture , PIPJ, 2-5 B/L, incompl-reducible to push-up test, no over, nor underlapping, there is evidence of shoe producing skin irritation MUSCLE STRENGTH: 5/5 all groups in a symmetrical fashion, B/L General Examination GENERAL APPEARANCE: Reveals a pleasant, alert, well nourished, well-developed, well hydrated individual, who demonstrates proper attention to hygiene/body habitus, and is in no acute distress, Pt serves as own historian for office visit today FOOT EXAM: Lower Extremity Neurological Exa m performed:: Yes Visual exam of foot performed:: Yes Date: 08/19/2024 Sensory testing performed:: sensations d iminished ORIENTED: person, place, and t sandro Footwear Evaluation Footwear Evaluation performe d:: Yes Ophthalmology Referral DIABETES EYE EXAM Procedure Perform ed:: Yes ?Date of Exam Performed: 06/29/2024 Findings of Diabetic Eye Exam:: no retin opathy Vascular DP PULSES (B): 2/4, B/L PT PULSES (B): 2/4, B/L CAPILLARY FILL TIME: 3 secs. per digit, B/L TEMPERTURE GRADIENT (C): normal, warm to cool, proximal to distal, B/L TROPHIC CONDITION-TEXTURE/ELASTICITY/TURGOR/HAIR GROWTH (B): decreased, B/L sparce hair growth EDEMA (C): 1/4 B/L, pitting, Le g(s), B/L Nails NAILS are: Elongated, overg rown, dystrophic, lytic, greater than 3mm thick, discolored and friable with crumbly malodorous subungual debris, TA, T5, remaining nails are elongated, overgrown, dystrophic
--- OUTSIDE RECORDS SUMMARY | 2024-11-24 11:19 | XMS_ITS ---
Author Organization [facility] Address [address] [place] [address] Care Team Providers Care Gore Stitcher Name Role Phone Oc FORD, Candelaria Primary Care Provider Unav ailable Rashmienrico Kimberly Unavailable [phone] Medications Medication SIG (Take, Route, Frequency, Duration) Notes Start Date End Date Status Extra Depth Orthopedic Shoes (1 Pair) with Customized Heat Molded Multidensity Innersoles (3 Pair) as directed Dx: NIDDM/Polyneuropathy (E11.42), Hammertoe Foot Deformity (M20.41,M20.42), Preulcerative Skin Lesion(s) (L85.1 11/09/2020 Not-Taking Vitamin C Not-Taking Custom Orthotics as directed 11/09/2020 Not-Taking Extra Depth Orthopedic Shoes (1 Pair) with Customized Heat Molded Multidensity Innersoles (3 Pair) as directed Dx: NIDDM/Polyneuropathy (E11.42), Hammertoe Foot Deformity (M20.41,M20.42), Preulcerative Skin Lesion(s) (L85.1 Active Timoptic 0.25 % 1 drop into affected eye Ophthalmic Once a day Not-Taking hydroCHLOROthiazide 12.5 MG 1 capsule in the morning Orally Once a day for 30 day(s) Not-Taking Vitamin K2 Active Lactic Acid Not-Taki ng buPROPion HCl ER (SR) 200 MG 1 tablet in the morning Orally Once a day for 30 day(s) Not-Taking Albuterol PRN Not-Taking Travatan Active NovoLOG Active Multivitamin Active Vitamin D3 Active Tresiba Active Liothyronine Sodium 5 MCG 1 tablet on an empty stomach Orally Once a day for 30 day(s) Active metFORMIN HCl 1000 MG 1 tablet [...] Once a day for 30 day(s) Active B Complex Active amLODIPine Besylate 10 MG 1 tablet Orall y Once a day for 30 day(s) Not-Taking Timolol Hemihydrate 0.25 % 1 drop into a ffected eye Ophthalmic Once a day Active Levothyroxine Sodium 150 MCG 1 tablet in the morning on an empty stomach Orally Once a day for 30 day(s) Active Fish Oil Active Plavix Active Aspirin 81 81 MG 1 tablet Orally Once a day Active Clopidogrel Bisulfate Active Encounters Encounter Location Date Provider Diagnosis [facility] [address] [phone] 11/18/2024 Kimberly Tang Plan Of Treatment Next Appt Details Provider Name:Kimberly weston, 01/20/2025 03:15:00 PM, [address] [place] [address], [phone], Progress Notes * Karma CURRY PDOB:[birth year] (79 yo F)Acc No.[id number]:11/18/2024 Progress Note Patient:?Karma CURRY P Provider:?Kimberly Tang DPM :1945???Age:79 Y???Sex:Female D ate:11/18/2024 Address:[address] [place], [place] [id number] Pcp:Candelaria Renae NP Subjective: * Chief Complaints: * ??? * HPI: ???At Risk footcare:?Pt States Last PCP Visit:?Date?06/29/2024 * Medical History:? * Medications:?Taking Clopidog rel Bisulfate , Taking Aspirin 81 81 MG Tablet Delayed Release 1 tablet Orally Once a day , Taking Plavix , Taking Timolol Hemihydrate 0.25 % Solution 1 drop into affected eye Ophthalmic Once a day , Taking B Complex , Taking Fish Oil , Taking Levothyroxine Sodium 150 MCG Tablet 1 tablet in the morning on an empty stomach Orally Once a day , Taking Liothyronine Sodium 5 MCG Tablet 1 tablet on an empty stomach Orally Once a day , Taking Losartan Potassium 100 MG Tablet 1 tablet Orally Once a day , Taking Magnesium 200 MG Tablet 2 tablets with a meal Orally Once a day , Taking Meclizine HCl 25 MG Tablet Chewable 1 tablet as needed Orally Once a day , Notes to Pharmacist: PRN, Taking metFORMIN HCl 1000 MG Tablet 1 tablet with a meal Orally Once a day , Taking Multivitamin , Taking NovoLOG , Taking Travatan , Taking Tresiba , Taking Vitamin D3 , Taking Vitamin K2 , Taking Extra Depth Orthopedic Shoes (1 Pair) with Customized Heat Molded Multidensity Innersoles (3 Pair) as directed Dx: NIDDM/Polyneuropathy (E11.42), Hammertoe Foot Deformity (M20.41,M20.42), Preulcerative Skin Lesion(s) (L85.1 , Not-Taking/PRN amLODIPine Besylate 10 MG Tablet 1 tablet Orally Once a day , Not-Taking/PRN hydroCHLOROthiazide 12.5 MG Capsule 1 capsule in the morning Orally Once a day , Not-Taking/PRN Albuterol , Notes to Pharmacist: PRN, Not-Taking/PRN buPROPion HCl ER (SR) 200 MG Tablet Extended Release 12 Hour 1 tablet in the morning Orally Once a day , Not- Taking/PRN Lactic Acid , Not-Taking/PRN Timoptic 0.25 % Solution 1 drop into affected eye Ophthalmic Once a day , Not-Taking/PRN Vitamin C , Not-Taking/PRN Extra Depth Orthopedic Shoes (1 Pair) with Customized Heat Molded Multidensity Innersoles (3 Pair) as directed Dx: NIDDM/Polyneuropathy (E11.42), Hammertoe Foot Deformity (M20.41,M20.42), Preulcerative Skin Lesion(s) (L85.1 , Not-Taking/PRN Custom Orthotics as directed Objective: * Vitals:? Assessment: Plan: * Treatment: * Images: * The named appointment provid er may or may not be the originator of this progress note, and it is not deemed complete until electronically signed by the appointment provider. Sign off status: Pending * Provider:Chantelle Tang DPM Date:? Generated for Jeremy cagle/Nyla/Moira on:?11/24/2024 11:18 AM EDT History and Physical Notes * HPI (History of Present Illness) Category Sub-Category Detail Notes Category Not es At Risk footcare Pt States Last PCP Visit: Date: 4
--- OUTSIDE RECORDS SUMMARY | 2024-11-24 11:19 | XMS_ITS | Encounter Summary ---
Author Organization [facility] Address [address] [facility] [address] [place] [address] Phone Care Team Providers Care Atomic Welder Name Role Phone Zen Patton MD Primary Care Provider Encounter Details Date Type Department Care Team (Late Contact Info) Description 10/26/2020 Orders Only [facility] [address] [facility] [address] [place] [address] Provider, MD Adilene [address] [place] [address] Social History Tobacco Use Types Packs/Day Years [...] Encounters Date Type Department Care Team (Late Contact Info) Description 12/01/2024 1:30 PM EDT Office Visit [facility] [address] [place] [phone] Felix Flanagan MD [address] [facility] [address] [place] [address] documented as of this encounter Procedures Procedure Name Priority Date/Time Associated Diagnosis Comments EXT RESULT ENTRY Routine 10/26/2020 documented in this encounter Results * EXT RESULT ENTRY (10/26/2020) us Historical Provider LAB BLOOD ORDERABLES Colleen l Result documented in this encounter Visit Diagnoses Not on filedocumented in this encounter Care Teams Atomic Welder Relationship Specialty Start Date End Date Zen Patton MD [address] [place] [phone] PCP - General 08/09/20 documented as of this encounter
[2024-11-24 11:22] LABS: Creatinine Urine 107.21 mg/dL; Microalbum/Creatinine Ratio Ur 6.5 ug/mg cr (<30); Total Protein Urine Random < 7 mg/dL (<12)
== END 2024-11-24 09:53 | disposition home or self-care (01) ==
LOC: HO.LAB 09:52
PROVIDERS: PCP Nurse Practitioner Adult Health; Visit Provider Internal Medicine Nephrology
DX: E11.21 Type 2 diabetes mellitus with diabetic nephropathy (principal); N18.2 Chronic kidney disease, stage 2 (mild); R80.1 Persistent proteinuria, unspecified
CPT/HCPCS: 36415; 80051; 81001; 82043; 82310; 82565; 82570; 84156; 84520

== ENCOUNTER 2025-06-08 20:19 | Observation (INO) | payer MEDICARE, SELFPAY ==
--- NOTE | ~2025-06-08 | CT_ITS ---
CLINICAL HISTORY: difficulty finding words CT Head Without Contrast: Comparison: None Findings: Cortical sulci and cisterns are prominent. Few scattered periventricular white matter hypodensities are present due to microangiopathy. Basal ganglia are unremarkable No shift in midline structures No intraparenchymal bleeding or abnormal extra axial blood fluid collections Normal pituitary size Clear paranasal sinuses Unremarkable orbital structures No depressed fractures Impression: Unremarkable CT of the head, no acute findings. ASPECTS score 10, NORMAL This document has been electronically signed by: Felix Calabrese MD on 06/08/2025 20:48:20
--- NOTE | ~2025-06-08 | CT_ITS ---
CLINICAL HISTORY: difficulty finding words CT angiography of head and neck with contrast. With MIP MPR Postprocessing. Comparison: Head CT from 06/08/2025 Findings: Head: No ICA or M1 occlusion. Calcifications include imaged ICAs. Variant proximal JUANITA branching. Right vertebral artery is dominant. The basilar artery is patent. Asymmetric posterior communicating arteries. P1 segments are diminutive. Proximal tool crib supervisor are otherwise unremarkable. No proximal intracranial arterial aneurysm. Fluid and mucosal thickening of the imaged paranasal sinuses. Neck: Calcified and noncalcified plaque include carotid bulbs and carotid bifurcations. No significant stenosis of either internal carotid artery by NASCET criteria Right vertebral artery is dominant. Portions of the vertebrals, particularly proximally are obscured. Common origin of the brachiocephalic artery and left common carotid artery. No defined arterial dissection flap by CT. Vessel tortuosity noted. Vascular calcifications include imaged aortic arch. Likely mild cardiomegaly in the [id number]. Atelectasis and motion of the imaged lungs. Lucency of the posterior arch of C1 is likely on a congenital basis. IMPRESSION: Head: 1. No ICA or M1 occlusion. 2. The basilar artery is patent. Neck: 1. No significant stenosis of either internal carotid artery by NASCET criteria 2. Right vertebral artery is dominant. This document has been electronically signed by: Tereso Lemus MD on 06/08/2025 21:17:20
--- NOTE | 2025-06-08 20:31 | ECG_ITS ---
Test Reason : STROKE PROTOCOL Blood Pressure : */* mmHG Vent. Rate : 85 BPM Atrial Rate : 85 BPM P-R Int : 146 ms QRS Dur : 106 ms QT Int : 384 ms P-R-T Axes : 32 -3 33 degrees QTcB Int : 456 ms Normal sinus rhythm Minimal voltage criteria for LVH, may be normal variant ( [place] product ) Borderline ECG When compared with ECG of 03-May-2014 20:29, Nonspecific T wave abnormality has replaced inverted T waves in Inferior leads Referred By: Natalie Hernandez Electronically Signed By: CELIA CALLE MD
--- NOTE | 2025-06-08 20:33 | ED.NEUROSD ---
HPI - Neuro Symptoms/Deficit General Chief Complaint: Stroke Stated Complaint: Sudden diff speaking, [id number] Time Seen by Provider: 06/08/25 20:29 Source: patient and EMS Mode of arrival: EMS Limitations: no limitations History of Present Illness ED Provider: Dr. Natalie Hernandez HPI Narrative: Patient comes to the emergency room complaining of a 5 minute episode of having difficulty finding words. Patient states that she was on the phone with her friend, suddenly patient had significant difficulty finding words. Per patient and EMS, at this time on arrival to the ED, patient is almost back to baseline. Patient states that she has had issues with difficulty finding words in the past, maybe a word or 2, but never this severe. Patient denies any difficulty moving her arms or legs or numbness and tingling. Patient states she takes Plavix, no blood thinners such as Eliquis, Xarelto or Coumadin. Of note, patient states that earlier today before all this happened, patient had a mechanical fall. Patient states that she tripped on the sidewalk of her house, they ground this was uneven. Patient states that she did not hit her head or lost consciousness. Patient states that she has mild bilateral leg pain but she was able to get up and continue walking. Related Data Home Medications ?Medication ?Instructions ?Recorded ?Confirmed amlodipine 10 mg tablet 10 mg PO DAILY 03/02/21 betamethasone dipropionate 0.05 % appl topical 03/02/21 topical cream blood sugar diagnostic (FreeStyle #10 ea 03/02/21 Lite Strips) bupropion HCl 200 mg tablet,12 hr PO 03/02/21 sustained-release carbamide peroxide 6.5 % ear drops 0 drp otic (ears) 03/02/21 (Ear Wax Removal Drops) hydrochlorothiazide 12.5 mg tablet 12.5 mg PO DAILY 03/02/21 insulin degludec 200 unit/mL (3 unit subcut 03/02/21 mL) subcutaneous pen (Tresiba FlexTouch U-200 insulin) levothyroxine 150 mcg capsule 150 mcg PO DAILY 03/02/21 meclizine 25 mg tablet 25 mg PO DAILY 03/02/21 metformin 1,000 mg tablet 1,000 mg PO DAILY 03/02/21 mupirocin 2 % topical ointment topical DAILY 03/02/21 nystatin 100,000 unit/gram topical 1 appl topical BID-TID 03/02/21 powder (Nystop) Allergies Allergy/AdvReac Type Severity Reaction Status Date / Time No Known Allergies Allergy Verified 06/08/25 21:00 Review of Systems Review of Systems: Constitutional : No Weight loss, No Fever, No Chills, No Night Sweats, No Fatigue, No Malaise ENT/Mouth : No Hearing loss, No Ear Pain, No Nasal Congestion, No Sinus Pain, No Hoarseness, No sore throat, No Rhinorrhea, No Swallowing Difficulty Eyes: No Eye Pain, No Swelling, No Redness, No Foreign Body, No Discharge, No Vision Changes Cardiovascular : No Chest Pain, No SOB, No Dyspnea on Exertion, No Orthopnea, No Edema, No Palpitations Respiratory : No Cough, No Sputum, No Wheezing, No Smoke Exposure, No Dyspnea Gastrointestinal : No Nausea, No Vomiting, No Diarrhea, No Constipation, No abdominal Pain, No Hematochezia, No Melena Genitourinary : no irregular bleeding, No Dysuria, No Urinary Frequency, No Hematuria, No Urinary Incontinence, No Urgency, No Flank Pain, No Urinary Flow Changes, No Hesitancy Musculoskeletal : No joint pain, No Myalgias, No Joint Swelling Skin : No Skin Lesions, No rash Neuro : Complaining of a 5 minute episode of severe the aphasia, No Weakness, No Numbness, No Paresthesias, No Loss of Consciousness, No Dizziness, No Headache Psych : No Anxiety/Panic, No Depression, No SI/HI/AH/VH, No Social Issues, Heme/Lymph: No Bruising, No Bleeding,No Lymphadenopathy Endocrine : No Polyuria, No Polydipsia, No Temperature Intolerance [facility] Past Medical History Medical History Hypothyroidism Hypertension Social History Social History Smoked in Last 30 Days: No Use of substances other than those prescribed or required for medical reasons: No Advance Directives: Yes Advance Directives Information Provided: No Advance Directives on File: No Physical Exam Exam: Exam: Appearance: Alert. Oriented X3. No acute distress. Eyes: Pupils equal, round and reactive to light. ENT: Pharynx normal. Neck: Normal inspection. Neck supple. No lymph nodes noted. No crepitus CVS: Normal heart rate and rhythm. Pulses normal. Normal S1 and S2 Respiratory: No respiratory distress. Breath sounds normal. No Wheezing. No rales Abdomen: Soft and nontender. No rigidity. No distention. Skin: Skin warm and dry. Normal skin color. Normal skin turgor. Extremities: No lower extremity edema. No Lacerations. No Rash Neuro: Oriented X 3. No motor deficit. No sensory deficit. Moving all extremities. No slurred speech. CN 2 through 12 grossly intact Psych: calm, cooperative, normal affect Vital Signs: Vital Signs: Last Vital Signs Temp 97.9 F 06/08/25 20:46 Pulse 81 06/08/25 20:46 Resp 12 06/08/25 20:46 BP 133/73 06/08/25 20:46 Pulse Ox 95 06/08/25 20:46 O2 Del Method Room Air 06/08/25 20:46 BMI result Body Mass Index 59.6 Course Course Course Narrative: Stroke protocol has been started Medications Administered Discontinued Medications Generic Name Dose Route Start Last Admin Trade Name Freq PRN Reason Stop Dose Admin Iohexol 100 ml 06/08/25 20:42 06/08/25 20:42 Iohexol 350 Mg/Ml 100 Ml Infus..Btl IV 06/08/25 20:43 75 ml ONCE ONE Administration Medical Decision Making Medical Decision Making [facility] Narrative: My interpretation of labs: No significant abnormality in patient's hematology and chemistry, urinalysis negative for UTI, urine toxicology negative, EtOH negative CT scan of the head and CTA of head and neck do not show any acute abnormality. Patient states that she still feels that every so often she has a bit of difficulty finding words. At this time, no obvious neurological deficits I discussed the patient with Dr. Luu from the Medicine team, patient being admitted Differential Diagnosis Differential Diagnoses: The differential diagnosis associated with the presentation includes Admission/Observation Consideration of admission/observation: Escalation of care including admission/observation considered Consult Healthcare Provider Management of the patient was discussed with: Hospitalist Lab Data [facility] Lab Attestation statement: I reviewed the patient's lab results. 06/08/25 20:44 06/08/25 20:44 Labs: Lab Results 06/08/25 06/08/25 06/08/25 Range/Units 20:21 20:23 20:44 WBC 8.8 (4.8-10.8) X10*3/uL RBC 4.56 (4.20-5.50) X10*6/uL Hgb 13.2 (12.0-16.0) g/dl Hct 40.3 (37.0-47.0) % MCV 88.4 (80.0-98.0) fL MCH 28.9 (27.0-33.0) pg MCHC 32.8 (31.0-35.0) g/dl RDW 14.2 (11.0-16.0) % Plt Count 207 (160-400) X10*3/uL MPV 11.0 (9.4-12.3) fL Immature Gran % (Auto) 0.8 H (0.0-0.4) % Neut % (Auto) 61.8 (45-73) % Lymph % (Auto) 24.8 (20-40) % Churchill % (Auto) 8.9 (2-11) % Eos % (Auto) 2.7 (0-4) % Baso % (Auto) 1.0 (0-2) % Lymph # (Auto) 2.2 (1.2-4.9) X10*3/uL Churchill # (Auto) 0.8 (0.1-1.2) X10*3/uL Eos # (Auto) 0.2 (0.0-0.4) X10*3/uL Baso # (Auto) 0.1 (0.0-0.2) X10*3/uL Abs Immat Gran (auto) 0.07 H (0.00-0.03) X10*3/uL Absolute Neuts (auto) 5.4 (2.0-8.3) x10*3/uL Absolute Nucleated RBC 0.000 (0.0-0.012) X10*3/uL Nucleated RBC % (auto) 0.0 (0.0-0.2) /100WBC Whole Blood PT 11.6 (11.1-13.5) sec Whole Blood INR 1.0 (0.9-1.1) Sodium 141 (135-145) mmol/L Potassium 3.9 (3.3-5.1) mmol/L Chloride 107 (96-108) mmol/L Carbon Dioxide 23 (22-29) mmol/L Anion Gap 15 (12-20) BUN 20 H (9-16) mg/dL Creatinine 0.90 (0.5-1.4) mg/dL Estim Creat Clear Calc 69.9 Estimated GFR > 60 POC Glucose 270 H (60-115) mg/dL Random Glucose 260 H (60-115) mg/dL Calcium 9.2 (8.4-10.2) mg/dL Magnesium 1.6 (1.6-2.6) mg/dL Total Bilirubin 0.2 (0.0-1.0) mg/dL Direct Bilirubin < 0.2 (0.0-0.5) mg/dL AST 18 (5-31) U/L ALT 14 (0-31) U/L Alkaline Phosphatase 100 (39-117) U/L Troponin I High Sens < 2.7 (<3.5-17.0) ng/L Total Protein 6.3 L (6.5-8.0) g/dL Albumin 3.9 (3.5-5.0) g/dL Urine Color Urine Appearance Urine pH (5.0-9.0) Ur Specific [place] (1.005-1.025) Urine Protein (Neg-Trace) mg/dL Urine Glucose (UA) (Negative) mg/dL Urine Ketones (Negative) mg/dL Urine Blood (Negative) Urine Nitrite (Negative) Ur Leukocyte Esterase (Negative) Urine Opiates Screen (Not Detect) Ur Buprenorphine Scrn (Not Detect) ng/mL Ur Oxycodone Screen (Not Detect) ng/mL Urine Methadone Screen (Not Detect) ng/mL Urine Fentanyl Screen (Not Detect) Ur Barbiturates Screen (Not Detect) Ur Phencyclidine Scrn (Not Detect) Ur Amphetamines Screen (Not Detect) U Benzodiazepines Scrn (Not Detect) Urine Cocaine Screen (Not Detect) U Marijuana (THC) Screen (Not Detect) Ethyl Alcohol < 10 mg/dL 06/08/25 Range/Units 21:31 WBC (4.8-10.8) X10*3/uL RBC (4.20-5.50) X10*6/uL Hgb (12.0-16.0) g/dl Hct (37.0-47.0) % MCV (80.0-98.0) fL MCH (27.0-33.0) pg MCHC (31.0-35.0) g/dl RDW (11.0-16.0) % Plt Count (160-400) X10*3/uL MPV (9.4-12.3) fL Immature Gran % (Auto) (0.0-0.4) % Neut % (Auto) (45-73) % Lymph % (Auto) (20-40) % Churchill % (Auto) (2-11) % Eos % (Auto) (0-4) % Baso % (Auto) (0-2) % Lymph # (Auto) (1.2-4.9) X10*3/uL Churchill # (Auto) (0.1-1.2) X10*3/uL Eos # (Auto) (0.0-0.4) X10*3/uL Baso # (Auto) (0.0-0.2) X10*3/uL Abs Immat Gran (auto) (0.00-0.03) X10*3/uL Absolute Neuts (auto) (2.0-8.3) x10*3/uL Absolute Nucleated RBC (0.0-0.012) X10*3/uL Nucleated RBC % (auto) (0.0-0.2) /100WBC Whole Blood PT (11.1-13.5) sec Whole Blood INR (0.9-1.1) Sodium (135-145) mmol/L Potassium (3.3-5.1) mmol/L Chloride (96-108) mmol/L Carbon Dioxide (22-29) mmol/L Anion Gap (12-20) BUN (9-16) mg/dL Creatinine (0.5-1.4) mg/dL Estim Creat Clear Calc Estimated GFR POC Glucose (60-115) mg/dL Random Glucose (60-115) mg/dL Calcium (8.4-10.2) mg/dL Magnesium (1.6-2.6) mg/dL Total Bilirubin (0.0-1.0) mg/dL Direct Bilirubin (0.0-0.5) mg/dL AST (5-31) U/L ALT (0-31) U/L Alkaline Phosphatase (39-117) U/L Troponin I High Sens (<3.5-17.0) ng/L Total Protein (6.5-8.0) g/dL Albumin (3.5-5.0) g/dL Urine Color Yellow Urine Appearance Clear Urine pH 7.0 (5.0-9.0) Ur Specific [place] 1.025 (1.005-1.025) Urine Protein Negative (Neg-Trace) mg/dL Urine Glucose (UA) 100 H (Negative) mg/dL Urine Ketones Negative (Negative) mg/dL Urine Blood Negative (Negative) Urine Nitrite Negative (Negative) Ur Leukocyte Esterase Negative (Negative) Urine Opiates Screen Not Detected (Not Detect) Ur Buprenorphine Scrn Not Detected (Not Detect) ng/mL Ur Oxycodone Screen Not Detected (Not Detect) ng/mL Urine Methadone Screen Not Detected (Not Detect) ng/mL Urine Fentanyl Screen Not Detected (Not Detect) Ur Barbiturates Screen Not Detected (Not Detect) Ur Phencyclidine Scrn Not Detected (Not Detect) Ur Amphetamines Screen Not Detected (Not Detect) U Benzodiazepines Scrn Not Detected (Not Detect) Urine Cocaine Screen Not Detected (Not Detect) U Marijuana (THC) Screen Not Detected (Not Detect) Ethyl Alcohol mg/dL Independent Interpretation I performed an independent interpretation of an: EKG (My interpretation of EKG: Normal sinus rhythm, heart rate 85, no ST segment depression or elevation, no T-wave inversion, QTC 456) and CT Scan Radiology Impression Discussion of test interpretation with radiology: I have reviewed the radiologist's reading. Radiologist Impression: Head: No ICA or M1 occlusion. Calcifications include imaged ICAs. Variant proximal JUANITA branching. Right vertebral artery is dominant. The basilar artery is patent. Asymmetric posterior communicating arteries. P1 segments are diminutive. Proximal sugar presser are otherwise unremarkable. No proximal intracranial arterial aneurysm. Fluid and mucosal thickening of the imaged paranasal sinuses. Neck: Calcified and noncalcified plaque include carotid bulbs and carotid bifurcations. No significant stenosis of either internal carotid artery by NASCET criteria Right vertebral artery is dominant. Portions of the vertebrals, particularly proximally are obscured. Common origin of the brachiocephalic artery and left common carotid artery. No defined arterial dissection flap by CT. Vessel tortuosity noted. Vascular calcifications include imaged aortic arch. Likely mild cardiomegaly in the [id number]. Atelectasis and motion of the imaged lungs. Lucency of the posterior arch of C1 is likely on a congenital basis. IMPRESSION: Head: 1. No ICA or M1 occlusion. 2. The basilar artery is patent. Neck: 1. No significant stenosis of either internal carotid artery by NASCET criteria 2. Right vertebral artery is dominant. NIH Stroke Scale Internal: Initial- Upon Arrival Level of Consciousness: Alert Level of Consciousness Questions: Answers both questions correctly Level of Consciousness Commands: Performs both tasks correctly Best Gaze: Normal Visual: No visual loss Facial Palsy: Normal Motor Arm (Right): No drift Motor Arm (Left): No drift Motor Leg (Right): No drift Motor Leg (Left): No drift Limb Ataxia: Absent Sensory: Normal Best Language: No aphasia Dysarthia: Normal Extinction and Inattention: No abnormality Score: 0 Critical Care Time Critical Care Time Critical Care Time: Yes Total Critical Care Time: 60 Attestation: I have personally provided critical care time. Time includes review of lab data, radiology results, discussion with consultants, and monitoring for potential decompensation. Intervention performed as documented. Discharge Plan Discharge Clinical Impression: Brain TIA, Aphasia Patient Disposition: Admitted As Inpatient Print Language: Eritrean
[2025-06-08 20:35] LABS: Prothrombin Time Whole Bld POC 11.6 sec (11.1-13.5); ~PT, ~INR - Anti Coag Clinic 1.0 (0.9-1.1)
[2025-06-08 20:36] LABS: Glucose, Whole Blood 270 mg/dL (60-115)
[2025-06-08] MEDS: iohexoL 350 MG/ML 100 ML INFUS..BTL IV (20:42)
--- NOTE | 2025-06-08 20:45 | PC.NURSE ---
pt BIBA from home d/t stroke like symptoms, upon arrival provider Cornelius Hernandez at the bedside, IV line placed, stat PT/INR completed, and pt brought in to CT for scan of the brain.
[2025-06-08 20:46] VITALS: BP 133/73; BP 200/90; PULSE 81; RESP 12; TEMP 36.6; O2SAT 95; BMI 59.6
[2025-06-08 20:49] LABS: MANUAL DIFF FLAG NO
[2025-06-08 20:50] LABS: Hematocrit 40.3 % (37.0-47.0); Hemoglobin 13.2 g/dl (12.0-16.0); Imm Gran Abs Auto 0.07 X10*3/uL (0.00-0.03); Imm Gran Pct Auto 0.8 % (0.0-0.4); Lymphocytes Absolute Auto 2.2 X10*3/uL (1.2-4.9); Mean Corpuscular HGB Conc 32.8 g/dl (31.0-35.0); Mean Corpuscular Hemoglobin 28.9 pg (27.0-33.0); Mean Corpuscular Volume 88.4 fL (80.0-98.0); NRBC Abs Auto 0.000 X10*3/uL (0.0-0.012); NRBC Pct Auto 0.0 /100WBC (0.0-0.2); Platelet Count 207 X10*3/uL (160-400); Red Blood Count 4.56 X10*6/uL (4.20-5.50); White Blood Count 8.8 X10*3/uL (4.8-10.8)
--- NOTE | 2025-06-08 21:00 | PC.NURSE ---
Addendum entered by Jorge Luis Walker RN 06/09/25 05:35: Blood pressure set to every 15 minutes, VSS Original Note: pt placed on cardiac monitoring, EKG, blood work and urine sample obtained, fall measures in place due to pt having bilateral leg weakness and stroke like symptoms, call light provided for safety
[2025-06-08 21:05] LABS: Alanine Aminotransferase 14 U/L (0-31); Albumin Level 3.9 g/dL (3.5-5.0); Alkaline Phosphatase 100 U/L (39-117); Anion Gap 15 (12-20); Aspartate Amino Transferase 18 U/L (5-31); Blood Urea Nitrogen 20 mg/dL (9-16); Calcium 9.2 mg/dL (8.4-10.2); Carbon Dioxide 23 mmol/L (22-29); Chloride 107 mmol/L (96-108); Creatinine Clr Calc Pharmacy 69.9; Estimated Glomerular Filt Rate > 60; Magnesium 1.6 mg/dL (1.6-2.6); Potassium 3.9 mmol/L (3.3-5.1); Sodium 141 mmol/L (135-145); Total Protein 6.3 g/dL (6.5-8.0)
[2025-06-08 21:11] LABS: Troponin-I High Sensitivity < 2.7 ng/L (<3.5-17.0)
--- NOTE | 2025-06-08 21:25 | PC.NURSE ---
pt provided w. bedside commode for urination, urine sample obtained and sent to lab
[2025-06-08 21:41] LABS: Appearance Urine Clear; Glucose Urine UA 100 mg/dL (Negative); PH 7.0 (5.0-9.0); Specific Gravity - Urine 1.025 (1.005-1.025)
[2025-06-08 21:49] LABS: Cannabinoid Screen Urine Not Detected (Not Detect)
--- OUTSIDE RECORDS SUMMARY | 2025-06-08 22:14 | XMS_ITS | Clinical Summary ---
Author Organization [facility] Address [address] [address] Phone Care Team Providers Care Electron Microscopist Name Role Phone Zen Patton MD Primary Care Provider [phone] Maite Vazquez MD Unavailable [phone] Felix Flanagan MD Unavailable Yan Frazier MD Unavailable [phone] Allergies Active Allergy Reactions Criticality Noted Date Comments Ciprofloxacin Unknown 06/20/2024 Levofloxacin Unknown 06/20/2024 Liraglutide GI Upset 04/08/2019 Medications albuterol 90 mcg/actuation inhaler Inhale 2 puffs into the lungs every 4 (four) hours as needed. Active meclizine (ANTIVERT) 25 MG tablet 3 (three) times a day as needed. 1 tablet Orally as needed Active aspirin 81 MG EC tablet Take 81 mg by mouth daily. Active Medication-Mike e Text Calcium & Magnesium Carbonates 311-232 MG Tablet, Sig: as directed Orally Active cholecalcifero l (VITAMIN D3) 2,000 unit capsule as directed Orally A ctive travoprost (TRAVATAN Z) 0.004 % Drop 1 drop into affected eye every evening Ophthalmic Once a day Active metFORMIN (GLUCOPHAGE) 1000 MG tablet 2 (two) times a day with meals. 1 in AM and 1 in PM Orally BID Active levothyroxine (SYNTHROID, LEVOTHROID) 150 MCG tabletIndicati ons:once per week 1.5 Take 1 tablet by mouth every morning. Patient is taking 1 tablet 7 days a week Indications: once per week 1.5 Active hydroCHLOROthi azide (HYDRODIURIL) 12.5 MG tablet 0 9 Active losartan (COZAAR) 100 MG tablet 9 Active docosahexanoic acid/epa (FISH OIL ORAL) Take 1,000 mg by mouth. Active triamcinolone acetonide 0.1 % cream DIAZ THIN LAYER EXT AA BID 11 9 Active timolol (TIMOPTIC-XE) 0.5 % ophthalmic gel-forming Place 1 drop into each eye daily. 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 3 Active blood-glucose sensor (DEXCOM G7 SENSOR) Jazz 1 each by Miscellaneous route Every 10 Days. Active FIASP FLEXTOUCH U-100 INSULIN 100 unit/mL (3 mL) injection penIndications :Type 2 diabetes mellitus with diabetic mononeuropathy , with long-term current use of insulin Administer sc at meals, 60u TDD E11.40 4 Active Additional Information Patient not taking.Reported on 01/09/2025 FREESTYLE PRECISION SUE STRIPS Strp stripsIndicati ons:Type 2 diabetes mellitus with stage 3a chronic kidney disease, with long-term current use of insulin 1 each by Miscellaneous route 3 (three) times a day before meals. DX:E11.22 200 strip 3 4 Active NOVOLOG FLEXPEN U-100 INSULIN 100 unit/mL (3 mL) flexpenIndicat ions:Type 2 diabetes mellitus with stage 3a chronic kidney disease, with long-term current use of insulin,Type 2 diabetes mellitus with diabetic mononeuropathy , with long-term current use of insulin Administer sc as directed at meals according to carb ratio/correction factor, 60u TDD E11.41 E11.22 60 mL 3 5 Active liothyronine (CYTOMEL) 5 MCG tablet TAKE 1 TABLET(5 MCG) BY MOUTH DAILY 90 tablet 2 5 Active TRESIBA FLEXTOUCH U-200 200 unit/mL (3 mL) InPn injection penIndications :Type 2 diabetes mellitus with diabetic mononeuropathy , with long-term current use of insulin INJECT 42 UNITS SUBCUTANEOUSLY DAILY.DX:E11.9 21 mL 3 5 Active Additional Information Patient taking differently: 38 Units, INJECT 42 UNITS SUBCUTANEOUSLY DAILY.DX:E11.9, Reported on 01/09/2025 BD INSULIN PEN NEEDLE UF SHORT 31 gauge x 12/12 NdleIndication s:Type 2 diabetes mellitus with diabetic mononeuropathy , with long-term current use of insulin,Type 2 diabetes mellitus with stage 3a chronic kidney disease, with long-term current use of insulin 1 each by Miscellaneous route 4 (four) times a day before meals and nightly. E11.42 400 each 3 5 Active Active Problems Problem Noted Date Diagnosed Date Acquired hypothyroidism 04/08/2019 Assessment & Plan (01/09/2025 11:28 AM EDT): Most recent TSH is below target range Will now be following with Dr. Hodgson and has upcoming visit scheduled Continues on LT4, LT3 Assessment & Plan (06/20/2024 5:57 PM EST): There are no recent TFTs available for review Followed by [facility] endocrinology Continues on LT4, LT3 Assessment & Plan (01/12/2024 9:38 AM EDT): There are no recent TFTs available for review Followed by [facility] endocrinology Continues on LT4, LT3 Assessment & Plan (07/13/2023 1:32 PM EST): Most recent TFTs reviewed, these are from fall 2021, TSH and fT4 are in desired range, total T3 is low Followed by [facility] endocrinology Continues on LT4, LT3 Assessment & Plan (06/30/2022 12:43 PM EST): Most recent TFTs reviewed, TSH and fT4 are in desired range, total T3 is low Followed by [facility] endocrinology Continues on LT4, LT3 Assessment & Plan (02/20/2022 2:49 PM EDT): No recent blood work on file Continues on LT4, LT3 Assessment & Plan (08/18/2021 1:28 PM EST): No recent blood work on file Continues on LT4, LT3 Assessment & Plan (08/16/2020 1:33 PM EST): Recent TFTs reviewed Continues on LT4, LT3 Clinically euthyroid Assessment & Plan (04/16/2020 11:01 PM EDT): Recent TFTs reviewed Continues on LT4, LT3 Clinically euthyroid Assessment & Plan (09/30/2019 2:10 PM EST): Recent TFTs reviewed Continues on LT4, LT3 Clinically euthyroid Assessment & Plan (04/08/2019 10:14 PM EDT): Recent TFTs reviewed, TSH, fT4 and T3 are in desired range Continues on L-thyroxine and liothyronine replacement Type 2 diabetes mellitus wit h stage 3a chronic kidney disease, with long-term current use of insulin 04/08/2019 Assessment & Plan (01/09/2025 1:27 PM EDT): A1c is in fair range, CGM data is reassuring with respect to stability however patterns run at upper end of target range so TIR is suboptimal Karma is trying to follow a healthy diet, has tried several different meal plans, working on functional medicine recommendations We discussed Berberine today and how this supplement may impact glucose patterns We revisited that increasing activity as tolerated will be a beneficial part of Karma's lifestyle management, she has continued to have some challenges with this Karma is advised to contact me with any questions or concerns and encouraged to keep in close contact with me as she follows her CGM patterns on new dosing regimen and when she starts any new herbal supplements This patient has diabetes This patient has [...] therapy adjusted as needed for optimal outcome Assessment & Plan (06/20/2024 6:02 PM EST): A1c remains in fair range, CGM data is more reassuring Callie is trying to follow a healthy diet, didn't find several different plans effective for her, has looked into others and is likely going to start the MIND meal plan Has been working with functional medicine/integrative medicine, would like help managing nontraditional approaches to glucose management such as herbal products and is advised to continue this as a complement to other care models Increasing activity as tolerated will be a beneficial part of Karma's lifestyle management, she has continued to have some challenges with this We discussed importance of monitoring glucose patterns closely as she begins any new diet or activity plan, we reviewed current insulin dosing at length and we discussed experimenting with timing of meal insulin bolusing to help with control Karma is advised to contact me with any questions or concerns and encouraged to keep in close contact with me as she follows her CGM patterns on new dosing regimen and when she starts her new meal plan or any new herbal supplements This patient has diabetes This patient has [...] therapy adjusted as needed for optimal outcome Assessment & Plan (01/12/2024 9:46 AM EDT): A1c is fair, worsened from previous and recent stressors have impacted overall glucose control and lifestyle management, recent issues with dizziness significantly affected activity as well Callie is trying to follow a healthy diet, didn't find several different plans effective for her, has looked into others and is likely going to start a plan called [facility]yn Would like to reestablish with integrative medicine but unsure if she will, would like help managing nontraditional approaches to glucose management such as herbal products Increasing activity as tolerated will be a beneficial part of Karma's lifestyle management, she has had some challenges with this We discussed importance of monitoring glucose patterns closely as she begins any new diet or activity plan, we reviewed current insulin dosing at length and it seems that Karma is using her carb ratio as a correction factor as well, we discussed the differences between these and she is encouraged to try a new dosing regimen of I:C 4 and ISF 15 using a target bg of 100 Advised to contact me with any questions or concerns and encouraged to keep in close contact with me as she follows her CGM patterns on new dosing regimen and when she starts her new meal plan or any new herbal supplements This patient has diabetes This patient has [...] therapy adjusted as needed for optimal outcome Assessment & Plan (07/13/2023 1:36 PM EST): A1c remains in very good rangey Callie is trying to follow a healthy diet, didn't find keto diet effective for her, she is following intermittent fasting protocols by Dr. Gordon, will be getting back to this and we discussed benefits of a consistent schedule of fasting each day Is able to be more active now since revasc procedure of left leg, regularly participating in exercise with trainers at [facility], we discussed benefits of lower intensity exercise during morning exercise when she is more insulin resistant, advised to review HR zones with trainers to stay in lower intensity to allow for more effective glucose lowering We discussed ways to help improve insulin sensitivity in particular we revisited the impact of sleep quality, activity and weight loss on insulin sensitivity, insulin requirement and blood pressure control Encouraged to continue her efforts at healthy lifestyle habits Advised to contact me with any questions or concerns and encouraged to keep in close contact with me as follows her CGM patterns We will meet again in 6 months, Callie will also schedule an appt with Shanell Barraza in near future Assessment & Plan (01/05/2023 1:27 PM EDT): A1c has risen but remains in very good range, Callie has had some inflammatory issues in the past several months which may have impacted her insulin sensitivity Callie is trying to follow a healthy diet, didn't find keto diet effective for her Is able to be more active know since revasc procedure of left leg We discussed ways to help improve insulin sensitivity in particular we revisited the impact of activity and weight loss on insulin sensitivity, insulin requirement and blood pressure control Encouraged to continue her efforts at healthy lifestyle habits We discussed Dexcom G7 and order for this was started Advised to contact me with any questions or concerns and encouraged to keep in close contact with me as she begins to follow her CGM patterns We will meet again in 6 months, Callie has upcoming appt with Shanell Barraza in March Assessment & Plan (06/30/2022 1:08 PM EST): A1c is stable in excellent range We discussed importance of minimizing risk for hypoglycemia as Karma starts on keto diet, Callie will reduce her Metformin dosage to once daily eliminating the evening dosage, this may help to reduce her risk for hypoglycemia in the overnight period, if Callie continues to have lows overnight then a reduction in Tresiba dosage will also be necessary Callie would like to reduce medication burden and since she is on basal bolus MDI we can look to eliminating Metformin in the future as she has some concerns regarding this medication anyway We discussed the impact of activity and weight loss on insulin sensitivity, insulin requirement and blood pressure control Encouraged to continue her efforts at healthy lifestyle habits Callie is likely not in ketosis since she may need to eat more carbs to manage low blood sugars Advised to contact me with any questions or concerns and encouraged to keep in close contact with me as she starts her new diet plan We will meet again in 3 months, Karma has upcoming appt with Shanell Barraza in September as well; we will check in with Callie in a week to see how she is doing Assessment & Plan (02/20/2022 2:53 PM EDT): A1c is stable in excellent range We discussed importance of minimizing risk for hypoglycemia as Karma starts on keto diet, we discussed preemptive reductions in Tresiba dosage now ahead of dietary changes due to long duration of action of this insulin, we also discussed adjustments to mealtime insulin dosing We will reevaluate the effect of Karma's diet on glucose patterns and adjust as needed based on these, advised to continue using CGM Encouraged to continue her efforts at healthy lifestyle habits Advised to contact me with any questions or concerns and encouraged to keep in close contact with me as she starts her new diet plan We will meet again in 4 months, Karma has upcoming appt with our religious educator staff in the fall as well Assessment & Plan (08/18/2021 1:33 PM EST): A1c is stable in excellent range, improved compared to last summer We discussed importance of minimizing risk for hypoglycemia, particularly avoiding additional doses of insulin late in evening, we revisited dosing correction doses without base mealtime dosage for blood sugars >180 or lower if glucose is trending up at bedtime We discussed possible need for higher premeal insulin dosage at evening meal to help reduce need for correction doses later We revisited the long duration of action of Tresiba and recommendation to not adjust dosage frequently, Callie has not been adjusting this Encouraged to continue to work on healthy lifestyle habits Advised to contact me with any questions or concerns We will meet again in 6 months, Karma has upcoming appt with our religious educator staff Assessment & Plan (02/15/2021 1:50 PM EDT): A1c is stable in fair range but personal CGM indicates very good overall control We discussed importance of minimizing risk for hypoglycemia, particularly avoiding additional doses of insulin late in evening and keeping in mind IOB We discussed possible need for higher premeal insulin dosage at evening meal to help reduce need for correction doses later We revisited the long duration of action of Tresiba and recommendation to not adjust dosage frequently, dosage adjustments should be made based on patterns and effects will not be seen for at least 3 days from dose change time Encouraged to continue to work on healthy lifestyle habits Advised to contact me with any questions or concerns We will meet again in 6 months, Karma has upcoming appt with our religious educator staff Assessment & Plan (08/22/2020 8:35 PM EST): A1c has been rising though remains in [...] months, Karma has upcoming appt with our religious educator staff T his patient has diabetes This patient has been [...] need of a CGM during COVID-19 pandemic. Assessment & Plan (01/01/2020 4:18 PM EDT): Adjusted Tresiba to 90u daily due to higher blood sugars likely attributable to lifestyle changes during pandemic Continues on fairly modest mealtime insulin dosing with reportedly reasonable random glucose control Remains active with walking daily and now more active outdoors with yardwork Encouraged to continue to pay close attention to blood sugar patterns with increased activity since she may require less insulin We had lengthy discussion regarding intermittent fasting, target eating window time lengths vs fasting window time lengths If Karma adopts an intermittent fasting plan then she may see improvement in glycemic control, improved insulin sensitivity as a result of weight loss and/or improved sleep patterns all of which may occur due to intermittent fasting, she is advised to monitor blood sugar patterns closely and strongly consider returning to Tresiba 80 units as she starts this new eating pattern We will adjust meal time dosing as needed based on blood sugar patterns during the day Advised to decrease Metformin to 2g daily, there is little benefit in glucose management above this dose Will have follow up with Shanell Barraza later this month, we will follow up late summer/early fall Karma is encouraged to reach out to us with any questions or concerns Assessment & Plan (09/30/2019 2:23 PM EST): Encouraged to continue Tresiba once daily, has been taking 80-85u daily and this has resulted in good control of fasting blood sugars on most days We discussed the challenges inherent in adjusting Tresiba dosage too frequently since it has a very long halflife, advised instead to adjust rapid acting insulin at meals, given written instructions on adjusting Novolog dosage not only based on blood sugar according to sliding scale but also based on food to be eaten and planned activity Advised to continue to monitor blood sugars closely We revisited the benefits of not waiting long periods between her meals, particularly to avoid overeating due to increased hunger, advised to have small protein containing snack ~3-4 hours after last meal particularly when the next meal is likely to be another 2 hours in the future, this would likely help to maintain more stable blood sugar patterns as well Encouraged to contact me through the [facility] or call the office with any questions, we will follow up in 3 months Assessment & Plan (07/03/2019 9:16 AM EST): Encouraged to continue Tresiba once daily, advised to reduce to 80-85u daily as she gets back to healthier eating, reduced Tresiba dosage now rather than waiting to see lower blood sugars should help to reduce hypoglycemia risk and also reduce the intense hunger that Karma experiences which may also be driven by insulin dose Advised to monitor blood sugars closely We discussed the benefits of not waiting long periods between her meals, particularly to avoid overeating due to increased hunger, advised to have small protein containing snack ~3-4 hours after last meal particularly when the next meal is likely to be another 2 hours in the future, this would likely help to maintain more stable blood sugar patterns as well Encouraged to contact me through the [facility] or call the office with any questions, we will follow up in 3 months Assessment & Plan (04/08/2019 10:40 PM EDT): Will start Tresiba 100u once daily and is given a modest Novolog sliding scale to follow, we will adjust these as needed We discussed treatment of hypoglycemia We discussed adjustment of basal insulin based on fasting blood sugar patterns, Karma is encouraged to call if she sees concerning blood sugar patterns We discussed importance of insulin injection rotation We will follow up with Karma in the next few days to see how she is doing and make any adjustments as needed at that time, she is also encouraged to reach out with any issues or concerns Mixed hyperlipidemia 04/08/2019 Assessment & Plan (01/09/2025 11:24 AM EDT): Has declined statin therapy Most recent lipid panel available for review is from early 2024, this was above goal Has been following various diets to help with glucose control and weight management, continues to eat a healthy diet Assessment & Plan (06/20/2024 5:58 PM EST): Has declined statin therapy Most recent lipid panel available for review is from 2021 Follows with [facility] endocrinology Has been following various diets to help with glucose control and weight management, plans to start the MIND plan soon Assessment & Plan (01/12/2024 9:39 AM EDT): Has declined statin therapy Most recent lipid panel available for review is from 2021 Follows with [facility] endocrinology Has been following various diets to help with glucose control and weight management, plans to start a new plan soon Assessment & Plan (07/13/2023 1:31 PM EST): Has declined statin therapy Most recent cholesterol panel data reviewed, LDL 125 Has been following various diets to help with glucose control, most recently higher carb, low fat Assessment & Plan (06/30/2022 12:58 PM EST): Has declined statin therapy Most recent cholesterol panel data reviewed, LDL 121 Following keto diet which is high in fat Assessment & Plan (02/20/2022 2:50 PM EDT): Has declined statin therapy No recent cholesterol panel data available for review Assessment & Plan (08/18/2021 1:29 PM EST): Has declined statin therapy No recent cholesterol panel data available for review Assessment & Plan (02/15/2021 10:27 AM EDT): Has declined statin therapy LDL is above goal on most recent lab work Assessment & Plan (08/16/2020 1:33 PM EST): Has declined statin therapy LDL is above goal on most recent lab work Assessment & Plan (04/16/2020 11:01 PM EDT): Has declined statin therapy LDL is above goal and TG is also elevated Diet has been suboptimal in the recent past, encouraged to return to healthy eating Assessment & Plan (01/01/2020 4:12 PM EDT): Has declined statin therapy Following healthy diet for the most part, we had lengthy discussion about benefits of intermittent fasting Assessment & Plan (09/30/2019 2:15 PM EST): We reviewed most recent lipid profile, LDL remains in low 100s and TG is modestly elevated Karma is not interested in statin therapy Advised to continue healthy diet Assessment & Plan (07/03/2019 9:25 AM EST): We reviewed most recent lipid profile, LDL remains in low 100s and TG is modestly elevated now but significantly improved compared to last lipid panel reviewed, this change is likely related to diet changes particularly with respect to carb/sugar intake Assessment & Plan (04/08/2019 10:19 PM EDT): Recent lipid panel reviewed, pattern is c/w metabolic syndrome, LDL is a modest 104 near goal but we had a lengthy discussion about rationale for statin medication recommendations, Karma has declined statin therapy Elevated TG is likely to improve at least partially to improvement in glycemic control and a continued focus on diet low in sugar/carbs MIKAEL (obstructive sleep apnea) 04/08/2019 Assessment & Plan (01/09/2025 11:28 AM EDT): Uses CPAP consistently Good quality sleep is important for improving metabolic markers which affect glucose control and weight management Assessment & Plan (01/05/2023 1:25 PM EDT): Uses CPAP consistently Good quality sleep is important for improving metabolic markers which affect glucose control and weight management Assessment & Plan (09/30/2019 2:16 PM EST): Uses CPAP consistently Good quality sleep is important for improving metabolic markers which affect glucose control and weight management Assessment & Plan (07/01/2019 11:43 PM EST): Uses CPAP consistently Assessment & Plan (04/08/2019 10:45 PM EDT): Using CPAP consistently, encouraged to continue We discussed effects of sleep apnea and poor sleep quality in general on insulin sensitivity Advised to monitor blood sugar differences on waking between nights of better sleep vs nights of more restlessness/wakefulness Malignant neoplasm of female breast 07/15/2014 Overview (09/18/2014): Malignant neoplasm of female breast; Right Morbid obesity 07/15/2014 Overview (09/18/2014): Morbid obesity Assessment & Plan (01/09/2025 11:22 AM EDT): BMI remains ~56, tthis has been stable since last fall Karma's physical activity remains limited, she is doing her best with healthy eating Assessment & Plan (06/20/2024 5:59 PM EST): BMI remains ~56, there has been modest weight loss since December Karma has been looking into weight loss diet plans which will also help her improve glucose control, she will be looking into following the MIND eating plan, physical activity remains limited Assessment & Plan (01/12/2024 9:37 AM EDT): 15lb weight gain since June, BMI is 56 Karma has been looking into weight loss diet plans which will also help her improve glucose control, we discussed Prolon today, she is advised strongly to monitor glucose patterns closely when starting a new diet or adding herbal supplements to current routine Assessment & Plan (07/13/2023 1:30 PM EST): Callie's BMI remains >50 however she has had nearly 10% weight loss since early 2021, 29lb total based on documented weights We discussed that with continued activity and healthy diet, and also with any weight loss which may result from this, she is likely to be more insulin sensitive and therefore requiring less insulin We discussed the benefits of intermittent fasting and that keeping a consistent schedule of eating and fasting windows each day as opposed to fasting for random days at a time, is likely to be better tolerated when on insulin therapy Encouraged to continue her efforts at healthy lifestyle Assessment & Plan (01/05/2023 1:27 PM EDT): Callie's BMI remains >50 however she has had nearly 8% weight loss since early 2021 We discussed that with increase in activity and healthier diet, and also with any weight loss which may result from this, she is likely to be more insulin sensitive and therefore requiring less insulin Encouraged to continue her efforts at healthy lifestyle Assessment & Plan (06/30/2022 12:39 PM EST): Callie's BMI remains >50 however she has had nearly 8% weight loss since early 2021 We discussed that with Callie's weight loss, increase in activity and healthier diet, she is likely more insulin sensitive and therefore requiring less insulin Encouraged to continue her efforts at healthy lifestyle Assessment & Plan (02/15/2021 10:20 AM EDT): Karma declined a weight today, BMI has been >50 She has been working on healthier eating particularly at night, we discussed importance of not going too long without eating in afternoon which may be leading to overeating in evening Basal insulin requirement has been stable Karma did not tolerating GLP1ra therapy in past but SGLT2i therapy may be beneficial on weight as well as renal protection Assessment & Plan (09/30/2019 2:18 PM EST): Karma declined a weight today, BMI has been >50 She has been less consistent with healthy eating but plans to resume a healthier plan Basal insulin requirement has been stable Assessment & Plan (07/01/2019 11:46 PM EST): Continues to follow intermittent fasting with prolonged fasting window Will be meeting with RD CDE in August, earlier if availability allows I am concerned that recent weight gain may be due to the change in basal insulin since Levemir may be less likely to cause weight gain than Tresiba, however continued reduction in insulin dosage due to more optimal insulin action should offset this Karma is also in the midst of a less healthy diet in recent past, she is looking to get back to her usual routine which should also support weight loss I have asked her to reduce Tresiba as she works toward improving her eating as this will help her sustain her efforts by not causing increased hunger due to a higher than needed insulin dosage, lower insulin requirement should support weight loss Assessment & Plan (04/08/2019 10:43 PM EDT): Has met with RD in the past, would be interested in seeing our RD CDE after the new year We discussed time restricted eating in detail including most recent research into metabolic effects of this, Karma is encouraged to continue her 8:16 schedule, but is encouraged to start her fasting period earlier in the evening rather than starting her eating window later and therefore ending later Encouraged to continue focus on healthy eating Encouraged to stay active as consistently as is comfortable/safe, this will help improve insulin sensitivity overall and thereby help reduce insulin requirement Type 2 diabetes mellitus 07/15/2014 Overview (09/18/2014): Diabetes mellitus type 2 Assessment & Plan (01/09/2025 1:28 PM EDT): Overall glucose control is suboptimal in the recent past, likely related to less consistency with healthy lifestyle due to increased stressors Karma's A1c is in fair range, this has been worsening, her CGM patterns remain with modest variability but at higher portion of target range so modest prandial elevations lead to readings in TAR1 or TAR2 We discussed pen needle length, Karma prefers longer needles however she is currently using 12.7mm 29g needles, we discussed a trial of 8mm 31g needles which may prove more comfortable We reviewed current insulin therapy and Karma will continue her current doses as she plans to start Berberine supplement, we discussed the likely impact of this on glucose control and Karma is advised to closely monitor CGM patterns and we will help her adjust her insulin doses as needed Karma is encouraged to contact me with any questions or concerns, we will follow up in 6 months Assessment & Plan (04/16/2020 11:14 PM EDT): Overall glucose control is suboptimal in the [...] contact me with any questions or concerns Assessment & Plan (07/03/2019 9:11 AM EST): Has been doing well on new insulin regimen, modestly reduced insulin requirement and may actually need less than she is currently taking, we discussed adjustment to insulin doses Encouraged to try to get back to healthier lifestyle Assessment & Plan (04/08/2019 10:34 PM EDT): Significant DPN has been ruled out by recent neurologic evaluation Improvement in blood sugar control will reduce progression of 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 as noted on past medical records We discussed adjustment of insulin therapy particularly a change from Levemir bid to Tresiba once daily and Karma was given written instructions for sliding scale insulin which she will use and we will adjust as needed based on blood sugar patterns Hypertensive disorder 07/15/2014 Overview (09/18/2014): Hypertension Assessment & Plan (01/09/2025 11:28 AM EDT): Blood pressure is in good control today despite recent stressors Continues on regimen which includes ARB Weight loss is likely to positively impact blood pressure management Assessment & Plan (06/20/2024 5:58 PM EST): Blood pressure is in good control today Recent changes to antihyperglycemic medications due to edema, continues on regimen which includes ARB Has upcoming follow up with PCP Weight loss is likely to positively impact blood pressure management Assessment & Plan (01/12/2024 9:35 AM EDT): Blood pressure is elevated today Recent changes to antihyperglycemic medications due to dizziness Has upcoming follow up with PCP Weight gain is likely also negatively affecting blood pressure control Assessment & Plan (07/13/2023 1:26 PM EST): Continues on medication regimen which includes ARB Blood pressure is in very good control Assessment & Plan (01/05/2023 1:24 PM EDT): Continues on medication regimen which includes ARB Blood pressure is in very good control Assessment & Plan (06/30/2022 12:32 PM EST): Continues on medication regimen which includes ARB, we discussed these today Blood pressure is in very good control, Karma reports that this is consistently <120/80 at home, her blood pressure has likely decreased due to weight loss We discussed adjustment to Amlodipine, Karma will reduce this to 5mg once daily and continue to monitor home blood pressure Assessment & Plan (02/20/2022 2:50 PM EDT): Continues on medication regimen which includes ARB Blood pressure is stable at upper end of desired range Weight loss is likely to help blood pressure management Assessment & Plan (08/18/2021 1:28 PM EST): Continues on medication regimen which includes ARB Blood pressure is reasonably well controlled Assessment & Plan (02/15/2021 10:20 AM EDT): Continues on medication regimen which includes ARB Blood pressure is very well controlled Assessment & Plan (08/16/2020 1:34 PM EST): Continues on medication regimen which includes ARB Blood pressure is very well controlled Assessment & Plan (04/16/2020 11:12 PM EDT): Continues on medication regimen which includes ARB Blood pressure is very well controlled Assessment & Plan (01/01/2020 4:12 PM EDT): Continues on ARB Assessment & Plan (09/30/2019 2:10 PM EST): Excellent blood pressure control on current regimen which includes ARB Assessment & Plan (07/01/2019 11:43 PM EST): Excellent blood pressure control on current regimen which includes ARB Assessment & Plan (04/08/2019 10:14 PM EDT): Blood pressure is in good control on current regimen which includes ARB Osteoarthritis 07/15/2014 Overview (09/18/2014): Osteoarthritis Gastro-esophageal reflux disease with esophagiti s 07/15/2014 Overview (09/18/2014): Gastroesophageal reflux disease with esophagitis Encounters Date Type Department Care Team Description 05/19/2025 Telephone [facility] [address] [place] [phone] Lorena Lorenz MA CLINICAL NOTES 04/21/2025 11:23 AM EDT - 04/21/2025 11:59 PM EDT Hospital Encounter [facility] [address] [place] [address] Aurora Hodgson MD Discharge Disposition: Home or Self Care 04/21/2025 10:00 AM EDT Nutrition [facility] [address] [place] [address] Belinda Gonzalez MD Dawicki, Jessica Jeanne, LDN Type 2 diabetes mellitus with stage 3a chronic kidney disease, with long-term current use of insulin (Primary Dx) 04/21/2025 Telephone [facility] [address] [place] [address] [place] [address] Katya Morrison LDN from Last 3 Months Immunizations Immunization Administration Dates Next Due INFLUENZA, SPLIT VIRUS, TRIVALENT PF 05/01/2013 INFLUENZA, SPLIT VIRUS, TRIV ALENT W/ PRESERVATIVE IM 05/17/2012,05/11/2011,05/02/2010,04/26 Influenza High-Dose Trivalen t Preservative Free IM 05/29/2017,04/21/2016,05/14/2015,06/10 Influenza Nasal, Unspecified Formulation 07/15/2014 Influenza, Unspecified Formulation 04/24,06/08/2007,06/14/2006,05/17,05/19/2004 Pneumococcal conjugate PCV13 06/10/2015 Pneumococcal polysaccharide PPSV23 07/05/2017,,06/14/2006 Pneumococcal, Unspecified Formulation 07/15/2014 Tdap 08/24/2010 Zoster live 02/11/2013 Family History Medical History Relation Comments Breast cancer Father Breast cancer Maternal Aunt Relation Status Comments Father Maternal Aunt Social History Tobacco Use Types Packs/Day Years Used Date Smoking Tobacco: Former Passive Smoke Exposure: Never Smokeless Tobacco: Never Tobacco Cessation:Counseling Given: Not Answered Comments:quit 1984 Alcohol Use Standard Drinks/Week Comments Never 0 (1 standard drink = 0.6 oz pur e alcohol) Education Answer Date Recorded Are you interested in more education? Not on olga e 11/24/2022 Are you concerned about learning? Not on file 11/24/2022 No 11/24/2022 No 11/24/2022 Digital Access Answer Date Recorded No 12/22/2022 No 12/22/2022 Reliable internet access at home? Not on file 12/22/2022 Device with a working camera? Not on file Comments No Sex and Gender Information Value Date Recorded Sex Assigned at Not on file Legal Sex Female 10:45 AM EST Gender Identity Not on file Sexual Orientation Not on file Last Filed Vital Signs Vital Sign Reading Time Taken Comments Blood Pressure 132/84 01/09/2025 9:34 AM EDT Pulse 86 01/09/2025 9:34 AM EDT Temperature 36.4 C (97.5 F) 01/05/2023 11:09 AM EDT Respiratory Rate 18 07/15/2014 3:09 PM EST Oxygen Saturation 97% 01/09/2025 9:34 AM EDT Inhaled Oxygen Concentration - - Weight 137.1 kg (302 lb 3.2 oz) 01/09/2025 9:34 AM EDT Height 155.3 cm (5' 1.14 ) 01/09/2025 9:34 AM ED T Body Mass Index 56.84 01/09/2025 9:34 AM EDT Plan of Treatment Upcoming Encounters Date Type Department Care Team (Late st Contact Info) Description 07/13/2025 10:20 AM EST Office Visit [facility] [address] [place] [address] Belinda Gonzalez MD [address] [facility], 1st [place] [address] [email or web address] Health Maintenance Due Date Last Done Comments DEPRESSION SCREENING 1958 SMOKING Hx and SMOKELESS TOBACCO SCREENING 1959 HEPATITIS C SCREENING 1964 OSTEOPOROSIS SCREENING INITIAL (ONE-TIME) 2011 ZOSTER VACCINES (1 of 2) 04/08/2013 02/11/2013 Adult Td,Tdap Booster 08/24/2020 08/24/2010 CREATININE LEVEL 05/25/2021 05/25/2020 POTASSIUM LEVEL 05/25/2021 05/25/2020 RSV VACCINE (1 - 1-dose 75+ series) 2021 DIABETIC EYE EXAM 04/18/2022 04/18/2021 LIPID PANEL 04/28/2023 04/28/2022, 04/01, 04/28/2022 INFLUENZA VACCINE (#1) 2025 7, 04/21/2016, 05/14/2015, Additional history exists HEMOGLOBIN A1C 03/26/2025 12/24/2024, 05/31, 01/03/2024, Additional history exists COVID-19 VACCINE ( season) 2025 BLOOD PRESSURE 07/11/2025 01/09/2025 TSH LEVEL 04/21/2026 04/21/2025, 04/30, 04/28/2022, Additional history exists PNEUMOCOCCAL VACCINES (50+ years) Completed 07/05/2017, 06/10/2015, 12/17/2010, Additional history exists HEPATITIS A VACCINES Aged Out No long er eligible based on patient's age to complete this topic HIB VACCINES Aged Out No longer eligi ble based on patient's age to complete this topic IPV VACCINES Aged Out No longer eligi ble based on patient's age to complete this topic MENINGOCOCCAL VACCINES (ACWY) Aged Out No longer eligible based on patient's age to complete this topic MENINGOCOCCAL VACCINES (B) Aged Out N o longer eligible based on patient's age to complete this topic Medical Devices Not on file Procedures Procedure Name Priority Date/Time Associated Diagnosis Comments TSH WITH REFLEX Routine 04/21/2025 11:46 AM EDT Acquired hypothyroidism OUTSIDE HEMOGLOBIN A1C Routine 12/24/2024 OUTSIDE HDL Routine 04/28/2022 HM DIABETES EYE EXAM FOR RESULT ENTRY ONLY Routine 04/18/2021 BASIC METABOLIC PANEL (BMP) Routine 05/25/2020 from Last 3 Months or Most Recently Relevant to Health Maintenance Results * TSH with reflex (04/21/2025 11:46 AM EDT) TSH 1.22 0.27 - 4.20 uIU/mL [facility] Blood 04/21/2025 11:4 6 AM EDT 04/21/2025 11:56 AM EDT us Aurora Hodgson MD LAB BLOOD BKR ORDERABLES Final Result [address] [address] * Outside HbA1c (12/24/2024) Hemoglobin A1c - External 8.5 % Historical Provider LAB BLOOD ORDERABLES Colleen l Result * (ABNORMAL) Outside HDL (04/28/2022) HDL - External 39(A) 40 - 80 mg/dL Historical Provider LAB BLOOD ORDERABLES Colleen l Result * DIABETES EYE EXAM FOR RESULT ENTRY ONLY (04/18/2021) Historical Provider HEALTH MAINTENANCE Final Result * Basic metabolic panel (05/25/2020) Result [facility] Kadi MITCHELL LAB BLOOD BKR ORDERABLES Fi nal Result from Last 3 Months or Most Recently Relevant to Health Maintenance Insurance MEDICARE PART A & B [employer] CROSS MEDEX SUPPLEMENT MEDICARE PART A & B [employer] MEDEX SUPPLEMENT MEDICARE PART A & B [employer] MEDEX SUPPLEMENT MEDICARE PART A & B [employer] MEDEX SUPPLEMENT MEDICARE PART A & B [employer] MEDEX SUPPLEMENT MEDICARE PART A & B [employer] [place] MEDEX SUPPLEMENT MEDICARE PART A & B [employer]OSS MEDEX SUPPLEMENT MEDICARE PART A & B [employer] MEDEX SUPPLEMENT MEDICARE PART A & B [employer]UE [employer] MEDEX SUPPLEMENT Advance Directives For more information, please contact: [phone] (9AM - 5PM [facility], Sunday-Sunday) Documents on File Type Date Recorded Patient Interventional Pain Physician Expl anation Advance Directive - Non Epic LMR 07/15/2014 12:00 AM Care Teams Electron Microscopist Relationship Specialty Start Date End Date Zen Patton MD [address] [place] [id number] PCP - General 12/04/14 Maite Vazquez MD [address] [place] [address] Medical Oncology 01/08/18 Felix Flanagan MD [address] [place] [address] [email or web address] Nephrology 01/08/18 Yan Frazier MD [address] [place] [address] Endocrinology 01/08/18 Additional Source Comments The information contained in this document represents components of the legal health record. It is not the complete legal health record.[facility]
--- OUTSIDE RECORDS SUMMARY | 2025-06-08 22:14 | XMS_ITS | Encounter Summary ---
Author Organization [facility] Address [address] [facility] [address] [place] [address] Phone Care Team Providers Care Pool Hall Inspector Name Role Phone Zen Patton MD Primary Care Provider [phone] Maite Vazquez MD Unavailable Felix Flanagan MD Unavailable [phone] Yan Frazier MD Unavailable [phone] Encounter Details Date Type Department Care Team (Late st Contact Info) Description 12/05/2017 Ancillary Orders [facility]ics [facility] Sports Medicine [address] [place] [address] Chavez Darby MD [address] [place] [address] [email or web address] Social History Tobacco Use Types Packs/Day Years Used Date Smoking Tobacco: Former Comments Unknown Sex and Gender Information Value Date Recorded Sex Assigned at Not on file Legal Sex Female 10:45 AM EST Gender Identity Not on file Sexual Orientation Not on file documented as of this encounter Plan of Treatment Upcoming Encounters Date Type Department Care Team (Late st Contact Info) Description 07/13/2025 10:20 AM EST Office Visit [facility] [address] [place] [phone] Belinda Gonzalez MD [address] [facility], 1st [place] [address] documented as of this encounter Visit Diagnoses Not on filedocumented in this encounter Care Teams Pool Hall Inspector Relationship Specialty Start Date End Date Zen Patton MD [address] [place] [phone] [email or web address] PCP - General 12/04/14 Maite Vazquez MD [address] [place] [id number] [email or web address] Medical Oncology 01/08/18 Felix Flanagan MD [address] [place] [address] [email or web address] Nephrology 01/08/18 Yan Frazier MD [address] [place] [phone] [email or web address] Endocrinology 01/08/18 documented as of this encounter Additional Source Comments The information contained in this document represents components of the legal health record. It is not the complete legal health record.[facility]
--- OUTSIDE RECORDS SUMMARY | 2025-06-08 22:14 | XMS_ITS | Encounter Summary ---
Author Organization [facility] Address [address] [facility] [address] [place] [address] Phone Care Team Providers Care Front Edger Name Role Phone Zen Patton MD Primary Care Provider [phone] Maite Vazquez MD Unavailable Felix Flanagan MD Unavailable [phone] Yan Frazier MD Unavailable [phone] Encounter Details Date Type Department Care Team (Late st Contact Info) Description 07/31/2018 Ancillary Orders Virtual Department [address] [place] [address] Piedad Moran, STACK ATTENDANT [address] [place] [phone] [email or web address] Pain and swelling of right lower leg Social History Tobacco Use Types Packs/Day Years Used Date Smoking Tobacco: Former Smokeless Tobacco: Never Comments No Sex and Gender Information Value Date Recorded Sex Assigned at Not on file Legal Sex Female 10:45 AM EST Gender Identity Not on file Sexual Orientation Not on file documented as of this encounter Plan of Treatment Upcoming Encounters Date Type Department Care Team (Late st Contact Info) Description 07/13/2025 10:20 AM EST Office Visit [facility] [address] [place] [phone] Belinda Gonzalez MD [address] [facility], 1st [place] [address] [email or web address] documented as of this encounter Results * US Lower Extremity Veins Duplex (Right) (07/31/2018 12:50 PM EST) Anatomical Region Laterality Modality Hip Right, Thigh Right, Knee Right, Leg Right, Ankle Right, Foot Right Ultrasound 07/31/2018 12:5 3 PM EST Impressions 07/31/2018 12:53 PM EST No evidence of deep venous thrombosis from the common femoral vein to the popliteal vein in the right lower extremity. POS - [id number] Narrative 07/31/2018 12:53 PM EST Ultrasonic examination of the deep venous system of the right leg was performed from the common femoral vein into the upper calf and includes the posterior tibial vein at the ankle, and demonstrates preserved flow, compressibility, and augmentation throughout the visualized deep venous system. No Freeman's cyst. Procedure Note Josh Villegas MD - 07/31/2018 Ultrasonic examination of the deep venous system of the right leg wasperformed from the common femoral vein into the upper calf and includesthe posterior tibial vein at the ankle, and demonstrates preserved flow,compressibility, and augmentation throughout the visualized deep venoussystem. No Freeman's cyst. IMPRESSION: No evidence of deep venous thrombosis from the common femoral vein to thepopliteal vein in the right lower extremity. POS - [id number] us Piedad Moran STACK ATTENDANT CV US VASCULAR Final Result documented in this encounter Visit Diagnoses Diagnosis Pain and swelling of right lower leg Pain and swelling of right lower leg documented in this encounter Care Teams Front Edger Relationship Specialty Start Date End Date Zen Patton MD [address] [place] [phone] [email or web address] PCP - General 12/04/14 Maite Vazquez MD [address] [place] [address] [email or web address] Medical Oncology 01/08/18 Felix Flanagan MD [address] [place] [address] [email or web address] Nephrology 01/08/18 Yan Frazier MD [address] [place] [phone] [email or web address] Endocrinology 01/08/18 documented as of this encounter Additional Source Comments The information contained in this document represents components of the legal health record. It is not the complete legal health record.[facility]
--- OUTSIDE RECORDS SUMMARY | 2025-06-08 22:14 | XMS_ITS | Encounter Summary ---
Author Organization [facility] Address [address] [facility] [address] [address] [place] [address] Phone Care Team Providers Care Truck Railroad And Bus Motor Mechanic Name Role Phone Zen Patton MD Primary Care Provider +- [phone] Maite Vazquez MD Unavailable [phone] Felix Flanagan MD Unavailable [phone] Yan Frazier MD Unavailable [phone] Encounter Details Date Type Department Care Team (Late st Contact Info) Description 01/07/2018 Ancillary Orders [facility], X-Ray - [address] [address] Maite Vazquez MD [address] [place] [address] [email or web address] Visit for screening mammogram Social History Tobacco Use Types Packs/Day Years Used Date Smoking Tobacco: Former Comments No Sex and Gender Information Value Date Recorded Sex Assigned at Not on file Legal Sex Female 10:45 AM EST Gender Identity Not on file Sexual Orientation Not on file documented as of this encounter Plan of Treatment Upcoming Encounters Date Type Department Care Team (Late st Contact Info) Description 07/13/2025 10:20 AM EST Office Visit [facility] [address] [place] [phone] Belinda Gonzalez MD 22 [facility], 1st Floor [place], [place] [phone] [email or web address] documented as of this encounter Results * BI MAMMOGRAM SCREENING WITH TOMOSYNTHESIS WITH CAD (LEFT) (01/07/2018 9:46 AM EDT) Anatomical Region Laterality Modality Breast Left, Breast Bilateral Left Ma mmography 01/07/2018 3:43 PM EDT Impressions 01/07/2018 3:46 PM EDT LEFT BREAST: Benign, no evidence of malignancy. Normal interval follow-up is recommended in 12 months. BI-RADS CATEGORY: 2 - Benign finding. DENSITY: The breast tissue is heterogeneously dense, an appearance which lowers the sensitivity of mammography. POS - CDHMAMA Narrative 01/07/2018 3:46 PM EDT STUDY: Unilateral left screening mammography with tomosynthesis and CAD Additional history: Status post right mastectomy for breast cancer in 2011. Status post left breast reduction mammoplasty in 2012. TECHNIQUE: Unilateral left full-field digital screening mammography is obtained and read in conjunction with computer-aided detection. Tomosynthesis as well as 2-D C view imaging were obtained. COMPARISON: Comparison made to multiple prior, most recent January 04, 2017, and most remote June 02, 2011. BREAST COMPOSITION: The breast is heterogeneously dense, which may obscure small masses. LEFT BREAST: Previous reduction mammoplasty. No significant masses, calcifications or other abnormalities are seen. Procedure Note Sejal Zavala MD - 01/07/2018 STUDY: Unilateral left screening mammography with tomosynthesis and CAD Additional history: Status post right mastectomy for breast cancer [id number]. Status post left breast reduction mammoplasty in 2012. TECHNIQUE: Unilateral left full-field digital screening mammography isobtained and read in conjunction with computer-aided detection.Tomosynthesis as well as 2-D C view imaging were obtained. COMPARISON: Comparison made to multiple prior, most recent January 04, 2017,and most remote June 02, 2011. BREAST COMPOSITION: The breast is heterogeneously dense, which may obscuresmall masses. LEFT BREAST: Previous reduction mammoplasty. No significant masses,calcifications or other abnormalities are seen. IMPRESSION: LEFT BREAST: Benign, no evidence of malignancy. Normal interval follow-upis recommended in 12 months. BI-RADS CATEGORY: 2 - Benign finding. DENSITY: The breast tissue is heterogeneously dense, an appearance whichlowers the sensitivity of mammography. POS - CDHMAMA Maite Vazquez MD IMG MG EXAMS Final Result documented in this encounter Visit Diagnoses Diagnosis Visit for screening mammogram Visit for screening mammogram documented in this encounter Care Teams Truck Railroad And Bus Motor Mechanic Relationship Specialty Start Date End Date Zen Patton MD [address] [place] [phone] [email or web address] PCP - General 12/04/14 Maite Vazquez MD [address] [place] [phone] [email or web address] Medical Oncology 01/08/18 Felix Flanagan MD [address] [place] [address] [email or web address] 01/08/18 Yan Frazier MD [address] [place] [address] [email or web address] Endocrinology 01/08/18 documented as of this encounter Additional Source Comments The information contained in this document represents components of the legal health record. It is not the complete legal health record.[facility]
--- OUTSIDE RECORDS SUMMARY | 2025-06-08 22:14 | XMS_ITS | Encounter Summary ---
Author Organization [facility] Address [address] [facility] [address] [place] [address] Phone Care Team Providers Care Physical Ther Name Role Phone Zen Patton MD Primary Care Provider + [phone] Maite Vazquez MD Unavailable [phone] Felix Flanagan MD Unavailable [phone] Yan Frazier MD Unavailable [phone] Encounter Details Date Type Department Care Team (Late st Contact Info) Description 05/19/2017 Ancillary Orders [facility], X-Ray - [address] [address] Maite Vazquez MD [address] [place] [email or web address] Visit for screening mammogram Social History Tobacco [...] Description 07/13/2025 10:20 AM EST Office Visit [facility] [address] [place] [address] Belinda Gonzalez MD 22 [facility], 1st Floor [place], [place] [phone] [email or web address] documented as of this encounter Visit Diagnoses Diagnosis Visit for screening mammogram documented in this encounter Care Teams Physical Ther Relationship Specialty Start Date End Date Zen Patton MD [address] [place] [address] [email or web address] PCP - General 12/04/14 Maite Vazquez MD [address] [place] [address] [email or web address] Medical Oncology 01/08/18 Felix Flanagan MD [address] [place] [address] [email or web address] 01/08/18 Yan Frazier MD [address] [place] [phone] [email or web address] Endocrinology 01/08/18 documented as of this encounter Additional Source Comments The information contained in this document represents components of the legal health record. It is not the complete legal health record.[facility]
--- OUTSIDE RECORDS SUMMARY | 2025-06-08 22:15 | XMS_ITS | Encounter Summary ---
Author Organization [facility] Address [address] [facility] [address] [place] [address] Phone Care Team Providers Care Commercial Loan Collection Officer Name Role Phone Zen Patton MD Primary Care Provider + [phone] Maite Vazquez MD Unavailable Felix Flanagan MD Unavailable [phone] Yan Frazier MD Unavailable [phone] Encounter Details Date Type Department Care Team (Late st Contact Info) Description 05/19/2017 Ancillary Orders [facility] at [address] [address] Maite Vazquez MD [address] [place] [address] Social History Tobacco Use Types Packs/Day Years [...] Description 07/13/2025 10:20 AM EST Office Visit [facility] [address] [place] [address] Belinda Gonzalez MD 22 [facility], 1st [place] [address] documented as of this encounter Visit Diagnoses Not on filedocumented in this encounter Care Teams Commercial Loan Collection Officer Relationship Specialty Start Date End Date Zen Patton MD [address] [place] [phone] [email or web address] PCP - General 12/04/14 Maite Vazquez MD [address] [place] [address] [email or web address] Medical Oncology 01/08/18 Felix Flanagan MD [address] [place] [address] [email or web address] 01/08/18 Yan Frazier MD [address] [place] [address] [email or web address] Endocrinology 01/08/18 documented as of this encounter Additional Source Comments The information contained in this document represents components of the legal health record. It is not the complete legal health record.[facility]
--- OUTSIDE RECORDS SUMMARY | 2025-06-08 22:15 | XMS_ITS | Encounter Summary ---
Author Organization [facility] Address [address] [facility] [address] [place] [address] Phone Care Team Providers Care National Opelint Analyst Name Role Phone Zen Patton MD Primary Care Provider [phone] Maite Vazquez MD Unavailable Felix Flanagan MD Unavailable [phone] Yan Frazier MD Unavailable [phone] Encounter Details Date Type Department Care Team (Late st Contact Info) Description 12/05/2017 Ancillary Orders [facility] [address] [place] [address] Chavez Darby MD [address] [place] [address] [email or web address] Left hip pain Social History Tobacco Use Types Packs/Day Years [...] Description 07/13/2025 10:20 AM EST Office Visit [facility] [address] [place] [phone] Belinda Gonzalez MD 22 [facility], 1st [place] [address] documented as of this encounter Results * XR HIP 2 VW LEFT PLUS PELVIS (12/07/2017 10:07 AM EDT) Narrative Edwige Bauman - 12/07/2017 10:07 AM EDT This image report has been auto-finalized and has not been read by a Radiologist. Interpretation has been included in the provider encounter note for this date of service. us Chavez Darby MD IMG XR PELVIS Final Res ult documented in this encounter Visit Diagnoses Diagnosis Left hip pain Pain in joint, pelvic region and thigh Left hip pain Pain in joint, pelvic region and thigh documented in this encounter Care Teams National Opelint Analyst Relationship Specialty Start Date End Date Zen Patton MD [address] [place] [address] [email or web address] PCP - General 12/04/14 Maite Vazquez MD [address] [place] [address] [email or web address] Medical Oncology 01/08/18 Felix Flanagan MD [address] [place] [address] [email or web address] 01/08/18 Yan Frazier MD [address] [place] [address] [email or web address] Endocrinology 01/08/18 documented as of this encounter Additional Source Comments The information contained in this document represents components of the legal health record. It is not the complete legal health record.[facility]
--- NOTE | 2025-06-08 22:51 | PM.IMHP ---
History of Present Illness Date of Service: 06/08/25 Chief Complaint: tansient aphasia a 79-year-old female with a history of hypertension, hyperlipidemia, PAD, vertigo, DMII, Hypothyroidism, Morbid obesity, MIKAEL on CPAP among others who presented to the emergency department after a brief episode of speech problem. . The patient reports that around 7:45 PM, while speaking with a friend on the phone, she suddenly developed difficulty finding words, lasting approximately five minutes. She describes it as being unable to say the words she is thinking off. 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 She denies slurred speech, facial droop, limb weakness, numbness, or visual changes. The episode gradually resolved, and upon ED arrival, she was back to baseline. NIHSS score was 0 on evaluation. She is compliant with Plavix which she takes for PAD according to her. Of note, earlier in the day she experienced a mechanical fall after tripping on uneven pavement. She did not lose consciousness or sustain any head trauma. She reports mild bilateral leg soreness but has been ambulating without difficulty using a cane. she was able to drive back home after the fall an hour or so before the speech problem occured. Initial CT head and CTA head/neck were negative for acute infarct or large vessel occlusion. Review of Systems Review of Systems: No fever, chills or focal weakness No chest pain, palpitation No shortness of breath or coughing No abdominal pain, nausea or vomiting No urinary symptoms No any rash or wounds PMFSH Medical History Hypothyroidism Hypertension Social History Smoked in Last 30 Days: No Use of substances other than those prescribed or required for medical reasons: No Advance Directives: Yes Advance Directives Information Provided: No Advance Directives on File: No Meds Allergies Allergy/AdvReac Type Severity Reaction Status Date / Time No Known Allergies Allergy Verified 06/08/25 21:00 Home Medications ?Medication ?Instructions ?Recorded ?Confirmed ?Last Taken ?Type amlodipine 10 mg tablet 10 mg PO DAILY 03/02/21 Unknown History betamethasone dipropionate 0.05 % appl topical 03/02/21 Unknown History topical cream blood sugar diagnostic (Dwayneyle #10 ea 03/02/21 Unknown History Lite Strips) bupropion HCl 200 mg tablet,12 hr PO 03/02/21 Unknown History sustained-release carbamide peroxide 6.5 % ear drops 0 drp otic (ears) 03/02/21 Unknown History (Ear Wax Removal Drops) hydrochlorothiazide 12.5 mg tablet 12.5 mg PO DAILY 03/02/21 Unknown History insulin degludec 200 unit/mL (3 unit subcut 03/02/21 Unknown History mL) subcutaneous pen (Tresiba FlexTouch U-200 insulin) levothyroxine 150 mcg capsule 150 mcg PO DAILY 03/02/21 Unknown History meclizine 25 mg tablet 25 mg PO DAILY 03/02/21 Unknown History metformin 1,000 mg tablet 1,000 mg PO DAILY 03/02/21 Unknown History mupirocin 2 % topical ointment topical DAILY 03/02/21 Unknown History nystatin 100,000 unit/gram topical 1 appl topical BID-TID 03/02/21 Unknown History powder (Nystop) Physical Exam Vital Signs and Narrative: Vital Signs: Last Vital Signs Temp 97.9 F 06/08/25 20:46 Pulse 81 06/08/25 20:46 Resp 12 06/08/25 20:46 BP 133/73 06/08/25 20:46 Pulse Ox 95 06/08/25 20:46 O2 Del Method Room Air 06/08/25 20:46 BMI result Body Mass Index 59.6 Const: Other: Constitutional : Awake, interactive, obese, not in distress Neck : Normal inspection, Supple Cardiovascular : RRR, no JVP, trace lower extremity edema Respiratory : good bilateral air entry, no crackles, wheezes or rhonchi Gastrointestinal: soft, lax, Normal bowel sounds, Non tender Skin : Warm, Dry Neurological : Alert & oriented x3, No focal deficit , CN 2-12 within normal, speech fluency and component normal Results Labs 06/08/25 20:44 06/08/25 20:44 Labs: Laboratory Results - last 24 hr 06/08/25 06/08/25 06/08/25 20:21 20:23 20:44 MCV 88.4 MCH 28.9 MCHC 32.8 RDW 14.2 Plt Count 207 MPV 11.0 Immature Gran % (Auto) 0.8 H Neut % (Auto) 61.8 Lymph % (Auto) 24.8 Dewey % (Auto) 8.9 Eos % (Auto) 2.7 Baso % (Auto) 1.0 Lymph # (Auto) 2.2 Dewey # (Auto) 0.8 Eos # (Auto) 0.2 Baso # (Auto) 0.1 Abs Immat Gran (auto) 0.07 H Absolute Neuts (auto) 5.4 Absolute Nucleated RBC 0.000 Nucleated RBC % (auto) 0.0 Whole Blood PT 11.6 Whole Blood INR 1.0 Anion Gap 15 Estim Creat Clear Calc 69.9 Estimated GFR > 60 POC Glucose 270 H Random Glucose 260 H Calcium 9.2 Magnesium 1.6 Total Bilirubin 0.2 Direct Bilirubin < 0.2 AST 18 ALT 14 Alkaline Phosphatase 100 Troponin I High Sens < 2.7 Total Protein 6.3 L Albumin 3.9 Urine Color Urine Appearance Urine pH Ur Specific [place] Urine Protein Urine Glucose (UA) Urine Ketones Urine Blood Urine Nitrite Ur Leukocyte Esterase Urine Opiates Screen Ur Buprenorphine Scrn Ur Oxycodone Screen Urine Methadone Screen Urine Fentanyl Screen Ur Barbiturates Screen Ur Phencyclidine Scrn Ur Amphetamines Screen U Benzodiazepines Scrn Urine Cocaine Screen U Marijuana (THC) Screen Ethyl Alcohol < 10 06/08/25 21:31 MCV MCH MCHC RDW Plt Count MPV Immature Gran % (Auto) Neut % (Auto) Lymph % (Auto) Dewey % (Auto) Eos % (Auto) Baso % (Auto) Lymph # (Auto) Dewey # (Auto) Eos # (Auto) Baso # (Auto) Abs Immat Gran (auto) Absolute Neuts (auto) Absolute Nucleated RBC Nucleated RBC % (auto) Whole Blood PT Whole Blood INR Anion Gap Estim Creat Clear Calc Estimated GFR POC Glucose Random Glucose Calcium Magnesium Total Bilirubin Direct Bilirubin AST ALT Alkaline Phosphatase Troponin I High Sens Total Protein Albumin Urine Color Yellow Urine Appearance Clear Urine pH 7.0 Ur Specific [place] 1.025 Urine Protein Negative Urine Glucose (UA) 100 H Urine Ketones Negative Urine Blood Negative Urine Nitrite Negative Ur Leukocyte Esterase Negative Urine Opiates Screen Not Detected Ur Buprenorphine Scrn Not Detected Ur Oxycodone Screen Not Detected Urine Methadone Screen Not Detected Urine Fentanyl Screen Not Detected Ur Barbiturates Screen Not Detected Ur Phencyclidine Scrn Not Detected Ur Amphetamines Screen Not Detected U Benzodiazepines Scrn Not Detected Urine Cocaine Screen Not Detected U Marijuana (THC) Screen Not Detected Ethyl Alcohol Assessment and Plan (1) Aphasia: Status: Acute (2) Fall: Status: Acute (3) MIKAEL on CPAP: Status: Acute Plan a 79-year-old female with a history of hypertension, hyperlipidemia, PAD, vertigo, DMII, Hypothyroidism, Morbid obesity, MIKAEL on CPAP among ptjers who presented to the emergency department after a brief episode of expressive aphasia. 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 Quality Stroke Does the patient have a stroke diagnosis?: No VTE Prior VTE?: No VTE Risk Level:: Medical - moderate - high VTE Device Contraindication: Treatment Not Indicated VTE Drug Contraindication: N/A - Med Ordered
[2025-06-09] VITALS: PULSE 84; RESP 16
[2025-06-09] MEDS: 0.9 % Sodium Chloride Flush 3 ML SYRINGE IVFLUSH
[2025-06-09] MEDS: Insulin Glargine,Hum.rec.anlog 100 UNIT/ML 10 ML VIAL 25 UNIT SUBCUT (00:15)
--- NOTE | 2025-06-09 03:45 | PC.NURSE ---
approximately this time this pt stated that the noise from the ED was too much due to her attempting to get some rest, and pt stated that the hospital stretcher is too uncomfortable. Pt wanted to sit in chair alone. Hospital bed acquired for pt and rolling walker given for ambulation and transfers. Pt was moved from ED22 to ED1 to provide lower stimulation for the pt. Call light provided for safety, bed alarm in place, fall measures continue to be in place.
[2025-06-09 04:00] VITALS: PULSE 85; RESP 16; O2SAT 99
[2025-06-09 05:23] VITALS: BP 160/81; PULSE 87; RESP 13; TEMP 36.7; O2SAT 96
--- NOTE | 2025-06-09 05:35 | PC.NURSE ---
pt was placed on cardiac monitoring upon her arrival to room ED22, initial VSS. BP monitoring set to cycle Q15 minutes, all VS remained stable during ED observation. At approximately 0400, pt was transferred to ED1 per pt request for comfort; VS data was cleared from monitor during transition. Pt remained stable at time of transfer. Ambulated w. steady gait using walker w. facility technician assisting to room. VS currently stable at this time.
--- NOTE | 2025-06-09 06:43 | HO.NURTONUR ---
Chief Complaint: transient aphasia a 79-year-old female, full code, diabetic diet, A+Ox4, with a history of hypertension, hyperlipidemia, PAD, vertigo, DMII, Hypothyroidism, Morbid obesity, MIKAEL on CPAP among others who presented to the emergency department after a brief episode of speech problem. . The patient reports that around 7:45 PM, while speaking with a friend on the phone, she suddenly developed difficulty finding words, lasting approximately five minutes. She describes it as being unable to say the words she is thinking off. 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 She denies slurred speech, facial droop, limb weakness, numbness, or visual changes. The episode gradually resolved, and upon ED arrival, she was back to baseline. NIHSS score was 0 on evaluation. She is compliant with Plavix which she takes for PAD according to her. Of note, earlier in the day she experienced a mechanical fall after tripping on uneven pavement. She did not lose consciousness or sustain any head trauma. She reports mild bilateral leg soreness but has been ambulating without difficulty using a cane. she was able to drive back home after the fall an hour or so before the speech problem occured. Access: 20g peripheral IV to the right forearm. Initial CT head and CTA head/neck were negative for acute infarct or large vessel occlusion. 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
--- NOTE | 2025-06-09 07:00 | CA_ITS ---
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 Normal LV ejection fraction of 65-70% with elevated filling pressures and mild asymmetric septal hypertrophy 2. Calcific aortic and mitral annular changes noted with early mild aortic stenosis 3. Mildly dilated ascending aorta Findings Procedure Information Contrast agent, definity, is being given per protocol without apparent complications. The study quality is limited by patients body habitus. Left Ventricle Normal left ventricular size, thickness, and systolic function. The visually estimated ejection fraction is between 65-70%. Spectral Doppler is indicative of an impaired relaxation filling pattern. Elevated filling pressures. E/E prime ratio is >15, consistent with elevated filling pressures. There is mild septal asymmetric hypertrophy. Right Ventricle The right ventricle was not well visualized. Atria The left atrium was not well visualized. Interatrial shunt cannot be excluded. The right atrium was not well visualized. Aortic Valve The aortic valve was not well visualized. The peak aortic gradient is 13 mmHg.The mean gradient is 7 mmHg. The aortic valve area is 2.18 cm2. Mitral Valve The mitral valve was not well visualized. There is mild anterior mitral leaflet thickening. There is moderate mitral annular calcification. There is no mitral valve regurgitation. There is no mitral valve stenosis. Pulmonic Valve The pulmonic valve was not well visualized. Tricuspid Valve The tricuspid valve was not well visualized. Indeterminate right atrial pressure. Great Vessels The aorta was not well visualized. The pulmonary artery was not well visualized. There is mild dilatation of the ascending aorta measuring 3.90 cm. Venous The inferior vena cava was not well visualized. Pericardium/Pleural The pericardium was not well visualized. Prior Study Comparison No prior study available for comparison. Measurements 2D Linear Measurements IVSd: 1.36 0.6-0.9/0.6-1.0 cm LVIDd: 4.47 3.9-5.3/4.2-5.9 cm LVIDd Index: 1.95 2.4-3.2/2.2-3.1 cm/m2 LVIDs: 2.79 2.0-3.6 cm LVPWd: 0.92 0.7-1.1 cm LV Mass: 227.10 67-162/88-224 g LV Mass Index: 99.17 43-95/49-115 g/m2 LVOT Diam: 2.30 3.0+(-)1.3 cm 2D Systolic Function EF 4C: 68.40 >55% EF 2C: 63.70 >55% EF BiP: 66.20 >55% Mitral Valve MV VTI: 0.24 MV Pk Ignacio: 1.12 MV Mn Ignacio: 0.75 MV Pk Grad: 5.00 MV Mn Grad: 2.00 MV Pk E: 0.76 MV PK A: 0.95 MV Decel Time: 132.00 E/A: 0.80 E'Lateral: 6.31 E'Medial: 4.90 E/E' Med: 15.60 E/E' Lat: 12.10 PHT: 39.00 MVA PHT: 5.64 MVA Continuity: 3.48 Decel [place]: 5.78 Aortic Valve AoV Pk Ignacio: 1.83 AoV Mn Ignacio: 1.26 AoV VTI: 0.39 AoV Pk Grad: 13.00 Aov Mn Grad: 7.00 SHERRIE Cont.VTI: 2.18 LVOT LVOT Pk Ignacio: 0.97 LVOT Mn Ignacio: 0.65 LVOT VTI: 0.20 LVOT Pk Grad: 4.00 LVOT Mn Grad: 2.00 LVOT Diam: 2.30 LVOT Area: 4.15 Diastolic Function MV Pk E: 0.76 MV Pk A: 0.95 E/A: 0.80 E'Medial: 4.90 E/E' Med: 15.60 E' Laterial: 6.31 E/E' Lat: 12.10 Right Ventricle TAPSE (mm): 21.20 TVS' Ignacio: 11.70 Great Vessels Aorta Sinus of Valsalva: 3.45 2.0-3.5 cm Ao Asc: 3.90 2.1-3.4 cm Updated in Other Vendor System with Status of Final Lopez Costello MD electronically signed on 06/09/2025 3:02:28 PM with status of Final
--- NOTE | 2025-06-09 07:17 | HO.PM.IMPN ---
Subjective Subjective Date of Service: 06/09/25 Interval History: Patient undergoing neuro consult TTE Patient apparently was fixated on blood sugars and continued to page multiple times. Explained to her that hypoglycemia is more risky than hyperglycemia and we are trying our best to keep her euglycemic. She needs to undergo TI workup like TTE, neuro workup, Holter monitor as recommended by Neurology Review of Systems Review of Systems: Yes all other systems are reviewed and are negative Physical Exam Exam: Exam: Constitutional : Awake, interactive, obese, not in distress Neck : Normal inspection, Supple Cardiovascular : RRR, no JVP, trace lower extremity edema Respiratory : good bilateral air entry, no crackles, wheezes or rhonchi Gastrointestinal: soft, lax, Normal bowel sounds, Non tender Skin : Warm, Dry Neurological : Alert & oriented x3, No focal deficit , CN 2-12 within normal, speech fluency and component normal Vital Signs: Vital Signs: Last Vital Signs Temp 98.0 F 06/09/25 05:23 Pulse 87 06/09/25 05:23 Resp 13 06/09/25 05:23 BP 160/81 H 06/09/25 05:23 Pulse Ox 96 06/09/25 05:23 O2 Del Method Room Air 06/09/25 05:23 BMI result Body Mass Index 59.6 Objective Data Active Medications Acetaminophen (Acetaminophen 325 Mg Tablet) 650 mg PO Q6H PRN PRN Reason: Pain, Mild 1-3,fever,headache Amlodipine Besylate (Amlodipine Besylate 10 Mg Tablet) 10 mg PO DAILY [facility]; Protocol Calcium Carbonate (Calcium Carbonate 750 Mg Tab.Chew) 750 mg PO Q4H PRN PRN Reason: Heartburn Clopidogrel Bisulfate (Clopidogrel Bisulfate 75 Mg Tablet) 75 mg PO DAILY [facility] Enoxaparin Sodium (Enoxaparin Sodium 40 Mg/0.4 Ml Syringe) 40 mg SUBCUT Q24H [facility] Insulin Glargine (Insulin Glargine,Hum.Rec.Anlog 100 Unit/Ml 10 Ml Vial) 25 unit SUBCUT BEDTIME [facility] Last Admin: 06/09/25 00:15 Dose: 25 unit Documented By: QUYEN Insulin Human Lispro (Insulin Lispro 100 Unit/Ml 3 Ml Vial) 0.1 - 10 unit SUBCUT QIDACHS [facility]; Protocol Levothyroxine Sodium (Levothyroxine Sodium 175 Mcg Tablet) 175 mcg PO DAILY@0600 [facility] Last Admin: 06/09/25 06:24 Dose: 175 mcg Documented By: QUYEN Magnesium Hydroxide (Milk Of Magnesia 30 Ml Oral.Susp) 30 ml PO DAILY PRN PRN Reason: Constipation Melatonin (Melatonin 3 Mg Tablet) 6 mg PO BEDTIME PRN PRN Reason: Insomnia Ondansetron HCl (Ondansetron Hcl 4 Mg/2 Ml Vial) 4 mg IVPUSH Q8H PRN PRN Reason: Nausea and Vomiting Sodium Chloride (0.9 % Sodium Chloride Flush 3 Ml Syringe) 3 ml IVFLUSH QSHIFT [facility] Last Admin: 06/09/25 00:00 Dose: 3 ml Documented By: QUYEN Labs 06/08/25 20:44 06/08/25 20:44 Labs: Laboratory Results - last 24 hr 06/08/25 06/08/25 06/08/25 20:21 20:23 20:44 MCV 88.4 MCH 28.9 MCHC 32.8 RDW 14.2 Plt Count 207 MPV 11.0 Immature Gran % (Auto) 0.8 H Neut % (Auto) 61.8 Lymph % (Auto) 24.8 [place] % (Auto) 8.9 Eos % (Auto) 2.7 Baso % (Auto) 1.0 Lymph # (Auto) 2.2 [place] # (Auto) 0.8 Eos # (Auto) 0.2 Baso # (Auto) 0.1 Abs Immat Gran (auto) 0.07 H Absolute Neuts (auto) 5.4 Absolute Nucleated RBC 0.000 Nucleated RBC % (auto) 0.0 Whole Blood PT 11.6 Whole Blood INR 1.0 Anion Gap 15 Estim Creat Clear Calc 69.9 Estimated GFR > 60 POC Glucose 270 H Random Glucose 260 H Calcium 9.2 Magnesium 1.6 Total Bilirubin 0.2 Direct Bilirubin < 0.2 AST 18 ALT 14 Alkaline Phosphatase 100 Troponin I High Sens < 2.7 Total Protein 6.3 L Albumin 3.9 Urine Color Urine Appearance Urine pH Ur Specific [place] Urine Protein Urine Glucose (UA) Urine Ketones Urine Blood Urine Nitrite Ur Leukocyte Esterase Urine Opiates Screen Ur Buprenorphine Scrn Ur Oxycodone Screen Urine Methadone Screen Urine Fentanyl Screen Ur Barbiturates Screen Ur Phencyclidine Scrn Ur Amphetamines Screen U Benzodiazepines Scrn Urine Cocaine Screen U Marijuana (THC) Screen Ethyl Alcohol < 10 11/10/25 21:31 MCV MCH MCHC RDW Plt Count MPV Immature Gran % (Auto) Neut % (Auto) Lymph % (Auto) [place] % (Auto) Eos % (Auto) Baso % (Auto) Lymph # (Auto) [place] # (Auto) Eos # (Auto) Baso # (Auto) Abs Immat Gran (auto) Absolute Neuts (auto) Absolute Nucleated RBC Nucleated RBC % (auto) Whole Blood PT Whole Blood INR Anion Gap Estim Creat Clear Calc Estimated GFR POC Glucose Random Glucose Calcium Magnesium Total Bilirubin Direct Bilirubin AST ALT Alkaline Phosphatase Troponin I High Sens Total Protein Albumin Urine Color Yellow Urine Appearance Clear Urine pH 7.0 Ur Specific [place] 1.025 Urine Protein Negative Urine Glucose (UA) 100 H Urine Ketones Negative Urine Blood Negative Urine Nitrite Negative Ur Leukocyte Esterase Negative Urine Opiates Screen Not Detected Ur Buprenorphine Scrn Not Detected Ur Oxycodone Screen Not Detected Urine Methadone Screen Not Detected Urine Fentanyl Screen Not Detected Ur Barbiturates Screen Not Detected Ur Phencyclidine Scrn Not Detected Ur Amphetamines Screen Not Detected U Benzodiazepines Scrn Not Detected Urine Cocaine Screen Not Detected U Marijuana (THC) Screen Not Detected Ethyl Alcohol Assessment and Plan (1) Brain TIA: Status: Acute Plan 79-year-old female with a history of hypertension, hyperlipidemia, PAD, vertigo, DMII, Hypothyroidism, Morbid obesity, MIKAEL on CPAP among others who presented to the emergency department after a brief episode of speech problem. She was diagnosed with L MCA TIA causing mild aphasia transient. 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 We will try to reinforce and request PCP to follow up PT OT-patient uses cane at baseline and does not have any needs at this time HTN-continue home meds HLD-rechecking her lipid profile-patient is refusing statins states she has muscle aches PAD-continue aspirin and Plavix DM type 2-insulin sliding scale and Lantus to maintain euglycemia Hypothyroidism-continue home meds Morbid obesity-calorie intake advised MIKAEL on CPAP-continue home CPAP use Vertigo-fall precautions This note is constructed using voice recognition software. While every effort has been made to ensure accuracy, scoop machine operator errors may have been included. Quality Stroke Does the patient have a stroke diagnosis?: No VTE Prior VTE?: No VTE Risk Level:: Medical - moderate - high VTE Device Contraindication: Treatment Not Indicated VTE Drug Contraindication: N/A - Med Ordered
[2025-06-09 07:26] LABS: Glucose, Whole Blood 219 mg/dL (60-115)
--- NOTE | 2025-06-09 08:38 | PM.NEUROCN ---
History of Present Illness Data of Consult Service Date: 06/09/25 Primary Care Provider: Candelaria Renae NP HPI Reason for consult: Transient dysphasia This is a 79-year-old right handed female with a history of hypertension, hyperlipidemia, PAD, vertigo, DM typeII, Hypothyroidism, Morbid obesity, MIKAEL on CPAP, who presented to the emergency department after a brief episode of speech problem. . The patient reports that around 7:45 PM, while speaking with a friend on the phone, she suddenly developed difficulty finding words, and difficulty getting words out. She does not think she was slurring her words. This lasted close to an hour and was getting better all along but she feels it was still there when she presented to the emergency room but is now completely cleared. No previous history of stroke or TIA. She has longstanding periodic difficulty finding words however this episode was different. She describes it as being unable to say the words she is thinking off. 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 She denies slurred speech, facial droop, limb weakness, numbness, or visual changes. The episode gradually resolved, and upon ED arrival, she was back to baseline. NIHSS score was 0 on evaluation. She is compliant with Plavix which she takes for PAD according to her. Initial CT head and CTA head/neck were negative for acute infarct or large vessel or MCA occlusion or stenosis. [facility] Past Medical History Medical History Hypothyroidism Hypertension Social History Social History Household Members: Family and None Housing: House Do you presently have visiting nurse or other home services: No Patient Tobacco Use Status: Former Tobacco user Smoked in Last 30 Days: No Use of substances other than those prescribed or required for medical reasons: No Advance Directives: Yes Advance Directives Information Provided: No Advance Directives on File: No Advance Directives Date on File: 06/09/25 Do you have a plan to hurt others: No Plan Recently lost weight without trying: No Eating poorly because of decreased appetite: No Nutrition Risks: No Nutritional Risk Patient : No : No Poor oral hygiene: No Meds Allergies Allergy/AdvReac Type Severity Reaction Status Date / Time No Known Allergies Allergy Verified 06/08/25 21:00 Active Medications: Current Medications Acetaminophen (Acetaminophen 325 Mg Tablet) 650 mg PO Q6H PRN PRN Reason: Pain, Mild 1-3,fever,headache Amlodipine Besylate (Amlodipine Besylate 10 Mg Tablet) 10 mg PO DAILY [facility]; Protocol Calcium Carbonate (Calcium Carbonate 750 Mg Tab.Chew) 750 mg PO Q4H PRN PRN Reason: Heartburn Clopidogrel Bisulfate (Clopidogrel Bisulfate 75 Mg Tablet) 75 mg PO DAILY [facility] Enoxaparin Sodium (Enoxaparin Sodium 40 Mg/0.4 Ml Syringe) 40 mg SUBCUT Q24H [facility] Insulin Glargine (Insulin Glargine,Hum.Rec.Anlog 100 Unit/Ml 10 Ml Vial) 25 unit SUBCUT BEDTIME [facility] Last Admin: 06/09/25 00:15 Dose: 25 unit Insulin Human Lispro (Insulin Lispro 100 Unit/Ml 3 Ml Vial) 0.1 - 10 unit SUBCUT QIDACHS [facility]; Protocol Last Admin: 06/09/25 07:28 Dose: 4 unit Levothyroxine Sodium (Levothyroxine Sodium 175 Mcg Tablet) 175 mcg PO DAILY@0600 [facility] Last Admin: 06/09/25 06:24 Dose: 175 mcg Magnesium Hydroxide (Milk Of Magnesia 30 Ml Oral.Susp) 30 ml PO DAILY PRN PRN Reason: Constipation Melatonin (Melatonin 3 Mg Tablet) 6 mg PO BEDTIME PRN PRN Reason: Insomnia Ondansetron HCl (Ondansetron Hcl 4 Mg/2 Ml Vial) 4 mg IVPUSH Q8H PRN PRN Reason: Nausea and Vomiting Sodium Chloride (0.9 % Sodium Chloride Flush 3 Ml Syringe) 3 ml IVFLUSH QSHIFT [facility] Last Admin: 06/09/25 07:30 Dose: Not Given Home Medications ?Medication ?Instructions ?Recorded ?Confirmed ?Last Taken ?Type blood sugar diagnostic (FreeStyle #10 ea 03/02/21 Unknown History Lite Strips) hydrochlorothiazide 12.5 mg tablet 12.5 mg PO DAILY 03/02/21 06/09/25 06/08/25 History levothyroxine 150 mcg capsule 150 mcg PO DAILY@0600 03/02/21 06/09/25 06/08/25 History meclizine 25 mg tablet 25 mg PO DAILY PRN Vertigo 03/02/21 06/09/25 Unknown History metformin 1,000 mg tablet 1,000 mg PO BID 03/02/21 06/09/25 06/08/25 History aspirin 81 mg tablet,delayed 81 mg PO DAILY 06/09/25 06/09/25 06/08/25 History release berberine chloride 500 mg capsule 500 mg PO QID 06/09/25 06/09/25 06/08/25 History clopidogrel 75 mg tablet 75 mg PO DAILY 06/09/25 06/09/25 06/08/25 History insulin aspart U-100 100 unit/mL sliding scale dose subcut 06/09/25 06/09/25 06/08/25 History (3 mL) subcutaneous pen (Novolog TIDAC FlexPen U-100 Insulin aspart) insulin degludec 200 unit/mL (3 42 unit subcut DAILY 06/09/25 06/09/25 06/08/25 History mL) subcutaneous pen (Tresiba FlexTouch U-200 insulin) liothyronine 5 mcg tablet 5 mcg PO DAILY@0600 06/09/25 06/09/25 06/08/25 History losartan 100 mg tablet 100 mg PO DAILY 06/09/25 06/09/25 06/08/25 History magnesium oxide 400 mg PO DAILY 06/09/25 06/09/25 06/08/25 History milk thistle 150 mg capsule 150 mg PO DAILY 06/09/25 06/09/25 06/08/25 History timolol maleate 0.25 % eye gel 1 drp ophthalmic (eye) DAILY 06/09/25 06/09/25 06/08/25 History forming solution travoprost 0.004 % eye drops 1 drp ophthalmic (eye) BEDTIME 06/09/25 06/09/25 06/07/25 History (Travatan Z) Physical Exam Vital Signs: Vital Signs: Last Vital Signs Temp 98.0 F 06/09/25 05:23 Pulse 87 06/09/25 05:23 Resp 13 06/09/25 05:23 BP 160/81 H 06/09/25 05:23 Pulse Ox 96 06/09/25 05:23 O2 Del Method Room Air 06/09/25 05:23 BMI result Body Mass Index 59.6 Neuro: Other: She is alert and oriented with normal intellectual functions. Speech and language functions are entirely normal. Cranial nerves 2-12 are normal. Muscle tone and strength are normal in all 4 extremities. Minimal right shoulder abduction weakness due to shoulder pain. Hyperreflexia in the lower extremities. Plantar responses are flexor. Results Labs 06/08/25 20:44 06/08/25 20:44 Labs: Short CBC 06/08/25 Range/Units 20:44 WBC 8.8 (4.8-10.8) X10*3/uL Hgb 13.2 (12.0-16.0) g/dl Hct 40.3 (37.0-47.0) % Plt Count 207 (160-400) X10*3/uL BMP 06/08/25 20:44 Sodium 141 Potassium 3.9 Chloride 107 Carbon Dioxide 23 BUN 20 H Creatinine 0.90 Calcium 9.2 Liver Function 06/08/25 Range/Units 20:44 Total Bilirubin 0.2 (0.0-1.0) mg/dL Direct Bilirubin < 0.2 (0.0-0.5) mg/dL AST 18 (5-31) U/L ALT 14 (0-31) U/L Alkaline Phosphatase 100 (39-117) U/L Albumin 3.9 (3.5-5.0) g/dL Urine 06/08/25 Range/Units 21:31 Urine Color Yellow Urine Appearance Clear Urine pH 7.0 (5.0-9.0) Ur Specific [place] 1.025 (1.005-1.025) Urine Protein Negative (Neg-Trace) mg/dL Urine Glucose (UA) 100 H (Negative) mg/dL Assessment and Plan (1) Brain TIA: Status: Acute Plan Her history is most consistent with a left middle cerebral artery TIA. Her CTA is unremarkable. 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 She should take aspirin 81 mg a day and Plavix 75 mg a day for the next 6 weeks after which she can just continue her aspirin. Control of diabetes and hypertension. Check lipid profile Procedures Date of Service Date of Service: 06/09/25
--- NOTE | 2025-06-09 08:52 | PHA.MEDREC ---
Addendum entered by Wilfredo Orosco RPh 06/09/25 11:34: MED REC REVIEWED BY [facility] Patient confirmed with Madie that she takes 1 tablet of levothyroxine 150 mcg EVERY DAY (no 1 and 1/2 tablet one day of the week) along with the liothyronine. Original Note: Pharmacy Consult ? Medication Reconciliation Pharmacy has completed the medication reconciliation. Patient was able to name all her medications. Patient states she is no longer using Mupirocin 2% ointment, and Nystatin powder. Patient confirmed she takes Levothyroxine 150 mcg with Liothyronine 5 mcg, Novolog is per sliding scale . patient states she inject 10-25 units depending on what she eats, Tresiba Flextouch 42 units with dinner, Metformin 1,000mg BID, even though claims has Metformin 1,000 mg qam and 1,500 mg (1 and 1/2 of 500 mg) QPM. Patient states she takes Burberine with insulin and with metformin. Patient states she takes Vitamin D3 and K2 , how ever didn't know the dose she takes. Patient last had her medications yesterday morning.
--- NOTE | 2025-06-09 09:49 | PC.NURSE ---
Patient wants to talk to Dr. Sebastian about her sugars and lovenox. Will await any changes.
--- NOTE | 2025-06-09 10:50 | MHC.CM.PN ---
CM met with Patient at bedside and addressed RAMIREZ with her, providing Patient with the original and a copy will be placed on the chart. 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 Patient is open to new VNA if ordered. CM has initiated and will follow for dc planning. PCP is Dr. Candelaria Renae and Son will transport to home at dc.
--- NOTE | 2025-06-09 10:58 | MHC.STROKE ---
Met with patient in ED bed 1. Pt awake, alert and oriented x 4. Pt was sitting in chair next to the bed, requesting assistance to get back to bed. Pt able to stand and pivot without difficulty. Stroke/TIA education reviewed with patient. All questions answered. Discussed in detail with the patient medical history, medications, activity, social history and diet. Pt states that she takes medications for her elevated blood pressure. She is refusing to take a statin stating that she experiences side effects from the medications. She is unsure of her cholesterol numbers at this time. Reviewed neurology recommendations and discussed DAPT and provided education to patient. Will continue to assist as needed.
[2025-06-09 12:18] LABS: Glucose, Whole Blood 280 mg/dL (60-115)
[2025-06-09 13:06] VITALS: BP 146/100
[2025-06-09 13:12] VITALS: BP 146/100
[2025-06-09] MEDS: Aspirin Enteric Coated 81 MG TABLET.DR PO (13:12)
--- NOTE | 2025-06-09 15:10 | MHC.SP.ADU ---
Referring provider: Milla Luu Reason for Referral: Transient Aphasia Type of Treatment: 00142 Assessment of Aphasia Date of Plan of Treatment: 06/09/25 Onset of Symptoms/Illness: 06/08/25 Date Treatment Started: 06/09/25 Medical Diagnosis: (1) Aphasia: Status: Acute (2) Fall: Status: Acute (3) MIKAEL on CPAP: Status: Acute (4) Brain TIA Primary Speech Language Diagnosis: R47.01 Aphasia Secondary Speech Language Diagnosis: History Per H&P Note: Patient is a 79-year-old female with a history of hypertension, hyperlipidemia, PAD, vertigo, DMII, Hypothyroidism, Morbid obesity, MIKAEL on CPAP among others who presented to the emergency department after a brief episode of speech problem.The patient reports that around 7:45 PM, while speaking with a friend on the phone, she suddenly developed difficulty finding words, lasting approximately five minutes. She describes it as being unable to say the words she is thinking off. 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 She denies slurred speech, facial droop, limb weakness, numbness, or visual changes. The episode gradually resolved, and upon ED arrival, she was back to baseline. NIHSS score was 0 on evaluation. She is compliant with Plavix which she takes for PAD according to her. Of note, earlier in the day she experienced a mechanical fall after tripping on uneven pavement. She did not lose consciousness or sustain any head trauma. She reports mild bilateral leg soreness but has been ambulating without difficulty using a cane. she was able to drive back home after the fall an hour or so before the speech problem occurred. Initial CT head and CTA head/neck were negative for acute infarct or large vessel occlusion. Patient with stroke-like symptom of transient aphasia prompting speech-language evaluation. Medical History: Diabetes High Blood Pressure Other: hypertension, hyperlipidemia, PAD, vertigo, DM type II, Hypothyroidism, Morbid obesity, MIKAEL on CPAP Medication List: Recent Hospitalizations: Yes: ED on 06/08/25 with dx most consistent of (1) Brain TIA Respiratory Needs: Room Air Patient Orientation: Alert & Oriented x 4 Social History: Employment Status: Retired Highest level of education obtained: Completed Doctorate Current Living Situation: Patient resides in a private residence Assistive Devices in use: Cane Glasses/Contacts Comment: Past Speech Language Therapy: Other Therapies Seen in Current Calendar Year: Physical Therapy Other: Evaluated by PT on this date. Assessment Speech Production: Within Functional Limits Clinical Impression: Intact Observations: Patient with episode of transient aphasia. Patient described this as difficulties finding words/anomia and difficulties increasing her utterances. Patient was speaking to a friend on the phone and reports only able to get a couple words out at a time and unable to created full sentences. Friend was concerned and asked patient to call her Son to get his opinion. She reports that Son was also concerned that she could not get her words out and recommended that she go into the ED. Patient reports transient aphasia resolved while in ED; continued to have some during the ambulance ride to. She reports baseline of word finding difficulties, but relates to age and family hx. Reports that this episode was an increase and far from baseline. See informal assessment results below in test of speech & lang. Tests of Speech & Lang Adults: Clinical Impression: Intact Observations: Patient presents with expressive/receptive language skills deemed WFL. Patient completing an informal speech-language assessment this date. READING: letters- 6/6, words- 10/10, sentences- 5/5. NAMING: shapes- 6/6, pictures- 6/6, responsive- 10/10, convergent- 5/5. FOLLOWING COMMANDS: verbal and complex- 4/5 (able to recognize mistake and self-correct incorrect answer), visual- / (read close your eyes written on piece of paper and then followed. YES/NO ?s: 5/5. WRITING: Patient asked to write a sentence: They surprised me with a LARGE lunch today that took a long time to eat. Patient with no difficulties noted with written expression. Patient presenting WF for speech-language skills. Encouraged patient to come in again if symptoms show again as these are stroke-like symptoms and warrant proper care/testing. 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 Patient in agreement with evaluation results and discharge recommendations. Please re-consult if any concerns arise. Tests of Cognition: Clinical Impression: Intact Observations: Informal quick cognition assessment; MENTAL ORGANIZATION: patient able to label holidays when shown pictures and then able to order from July-June- 10/31. MATHEMATICS: Patient able to read and answer simple everyday math problems- /5. Recommendation for Speech Therapy: NA:Typical Evaluation SUMMARY: Patient presents WF for speech-language skills. Patient reports feeling back to baseline. No aphasia or receptive/expressive language difficulties noted on evaluation. Encouraged patient to come in again if symptoms show again as these are stroke-like symptoms and warrant proper care/testing. 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 Patient in agreement with evaluation results and discharge recommendations. Evaluation results communicated with RN and MD via secure chat. Please re-consult if any concerns arise. Patient Education: Completed: Yes Patient/Caregiver Education: Described Results of Evaluation Patient expressed understanding of evaluation Patient agrees with goals and treatment plan Comments/Barriers to Learning: Compensation Supervisor Clinican/Clinical Fellow: No Supervisory Statement: No Speech Language Pathologist: Kelin Marie M.A., [facility]INSURANCE AUDITOR
[2025-06-09 18:25] LABS: Glucose, Whole Blood 272 mg/dL (60-115)
--- NOTE | 2025-06-09 19:14 | PM.DS ---
DS: Providers Provider Date of Service: 06/09/25 Date of admission: 06/08/25 23:22 Date of discharge: 06/09/25 Primary care physician: Candelaria Renae NP Consults: 06/09/25 08:11 Consult to Neurology Routine Consulting Provider: Yoko Alexis Reason for consultation: post stroke 06/09/25 08:28 Consult to Neurology Routine Consulting Provider: Neurology Breanne schulz [facility] Reason for consultation: tia vs stroke DS: Diagnosis Discharge Diagnosis (1) Brain TIA: Status: Acute DS: Summary Hospital Course Hospital Course: 79-year-old female with a history of hypertension, hyperlipidemia, PAD, vertigo, DMII, Hypothyroidism, Morbid obesity, MIKAEL on CPAP among others who presented to the emergency department after a brief episode of speech problem. She was diagnosed with L MCA TIA causing mild aphasia transient. 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 Offered red yeast, PSC K 9, patient deferred. We will try to reinforce and request PCP to follow up PT OT-patient uses cane at baseline and does not have any needs at this time HTN-continue home meds, added amlodipine 10 mg during this admission to maintain normotension. Low sodium diet advised. HLD-rechecking her lipid profile-patient is refusing statins states she has muscle aches PAD-continue aspirin and Plavix DM type 2-insulin sliding scale and Lantus to maintain euglycemia Hypothyroidism-continue home meds Morbid obesity-calorie intake advised MIKAEL on CPAP-continue home CPAP use Vertigo-fall precautions Patient was deemed medically appropriate, we have initiated her on DAPT, patient deferred statins, started her on amlodipine 10 mg. Advised the patient to seek care if she has any concerns. Importance of getting a Holter monitor and following with PCP, Cardiology, Neurology emphasized. Time spent discussing smoking cessation with patient: more than 10 minutes Status at Discharge Functional status at discharge: uses cane/walker Overall status at discharge: patient is progressing back to baseline Time Attestation Discharge Coordination Time (in mins): 35 Quality: Safe Use of Opioids Does Pt have an Active Cancer Diagnosis on the Problem List?: No Quality: Stroke Does the patient have a stroke diagnosis?: Yes Reason for No Anti-thrombotic at DC: Drug declined by patient (Patient adamantly refusing statins) Reason for No Anticoagulant at DC: Drug treatment not indicated Reason Not Initiating IV-Tpa: Drug treatment not indicated Reason for No Anti-thrombotic by Day Two: N/A - Med Ordered Reason for No Statin at DC: N/A - Med Ordered Physical Exam Vital Signs: Vital Signs: Last Vital Signs Temp 98.0 F 06/09/25 05:23 Pulse 87 06/09/25 05:23 Resp 13 06/09/25 05:23 BP 146/100 H 06/09/25 13:12 Pulse Ox 96 06/09/25 05:23 O2 Del Method Room Air 06/09/25 05:23 BMI result Body Mass Index 59.6 Neuro: Other: She is alert and oriented with normal intellectual functions. Speech and language functions are entirely normal. Cranial nerves 2-12 are normal. Muscle tone and strength are normal in all 4 extremities. Minimal right shoulder abduction weakness due to shoulder pain. Hyperreflexia in the lower extremities. Plantar responses are flexor. DS: Data Data Completed and Pending Labs on day of discharge: Laboratory Results - last 24 hr 06/08/25 06/08/25 06/08/25 20:21 20:23 20:44 WBC 8.8 RBC 4.56 Hgb 13.2 Hct 40.3 MCV 88.4 MCH 28.9 MCHC 32.8 RDW 14.2 Plt Count 207 MPV 11.0 Immature Gran % (Auto) 0.8 H Neut % (Auto) 61.8 Lymph % (Auto) 24.8 [place] % (Auto) 8.9 Eos % (Auto) 2.7 Baso % (Auto) 1.0 Lymph # (Auto) 2.2 [place] # (Auto) 0.8 Eos # (Auto) 0.2 Baso # (Auto) 0.1 Abs Immat Gran (auto) 0.07 H Absolute Neuts (auto) 5.4 Absolute Nucleated RBC 0.000 Nucleated RBC % (auto) 0.0 Whole Blood PT 11.6 Whole Blood INR 1.0 Sodium 141 Potassium 3.9 Chloride 107 Carbon Dioxide 23 Anion Gap 15 BUN 20 H Creatinine 0.90 Estim Creat Clear Calc 69.9 Estimated GFR > 60 POC Glucose 270 H Random Glucose 260 H Calcium 9.2 Magnesium 1.6 Total Bilirubin 0.2 Direct Bilirubin < 0.2 AST 18 ALT 14 Alkaline Phosphatase 100 Troponin I High Sens < 2.7 Total Protein 6.3 L Albumin 3.9 Urine Color Urine Appearance Urine pH Ur Specific [place] Urine Protein Urine Glucose (UA) Urine Ketones Urine Blood Urine Nitrite Ur Leukocyte Esterase Urine Opiates Screen Ur Buprenorphine Scrn Ur Oxycodone Screen Urine Methadone Screen Urine Fentanyl Screen Ur Barbiturates Screen Ur Phencyclidine Scrn Ur Amphetamines Screen U Benzodiazepines Scrn Urine Cocaine Screen U Marijuana (THC) Screen Ethyl Alcohol < 10 06/08/25 06/09/25 06/09/25 21:31 07:18 12:13 WBC RBC Hgb Hct MCV MCH MCHC RDW Plt Count MPV Immature Gran % (Auto) Neut % (Auto) Lymph % (Auto) [place] % (Auto) Eos % (Auto) Baso % (Auto) Lymph # (Auto) [place] # (Auto) Eos # (Auto) Baso # (Auto) Abs Immat Gran (auto) Absolute Neuts (auto) Absolute Nucleated RBC Nucleated RBC % (auto) Whole Blood PT Whole Blood INR Sodium Potassium Chloride Carbon Dioxide Anion Gap BUN Creatinine Estim Creat Clear Calc Estimated GFR POC Glucose 219 H 280 H Random Glucose Calcium Magnesium Total Bilirubin Direct Bilirubin AST ALT Alkaline Phosphatase Troponin I High Sens Total Protein Albumin Urine Color Yellow Urine Appearance Clear Urine pH 7.0 Ur Specific [place] 1.025 Urine Protein Negative Urine Glucose (UA) 100 H Urine Ketones Negative Urine Blood Negative Urine Nitrite Negative Ur Leukocyte Esterase Negative Urine Opiates Screen Not Detected Ur Buprenorphine Scrn Not Detected Ur Oxycodone Screen Not Detected Urine Methadone Screen Not Detected Urine Fentanyl Screen Not Detected Ur Barbiturates Screen Not Detected Ur Phencyclidine Scrn Not Detected Ur Amphetamines Screen Not Detected U Benzodiazepines Scrn Not Detected Urine Cocaine Screen Not Detected U Marijuana (THC) Screen Not Detected Ethyl Alcohol 06/09/25 18:16 WBC RBC Hgb Hct MCV MCH MCHC RDW Plt Count MPV Immature Gran % (Auto) Neut % (Auto) Lymph % (Auto) [place] % (Auto) Eos % (Auto) Baso % (Auto) Lymph # (Auto) [place] # (Auto) Eos # (Auto) Baso # (Auto) Abs Immat Gran (auto) Absolute Neuts (auto) Absolute Nucleated RBC Nucleated RBC % (auto) Whole Blood PT Whole Blood INR Sodium Potassium Chloride Carbon Dioxide Anion Gap BUN Creatinine Estim Creat Clear Calc Estimated GFR POC Glucose 272 H Random Glucose Calcium Magnesium Total Bilirubin Direct Bilirubin AST ALT Alkaline Phosphatase Troponin I High Sens Total Protein Albumin Urine Color Urine Appearance Urine pH Ur Specific [place] Urine Protein Urine Glucose (UA) Urine Ketones Urine Blood Urine Nitrite Ur Leukocyte Esterase Urine Opiates Screen Ur Buprenorphine Scrn Ur Oxycodone Screen Urine Methadone Screen Urine Fentanyl Screen Ur Barbiturates Screen Ur Phencyclidine Scrn Ur Amphetamines Screen U Benzodiazepines Scrn Urine Cocaine Screen U Marijuana (THC) Screen Ethyl Alcohol Discharge Plan Discharge Anticipated Discharge Date/Time: 06/09/25 19:02 Patient Disposition: Home, Self-Care Discharge Diagnosis: R MCA TIA Referrals: Dana Lin MD [Physician, Neurology] - 1 Week Esteban Paz MD [Physician, Cardiology] - 1 Week Candelaria Renae NP [Primary Care Provider, [facility]] - 1 Week Discharge Medications: New amlodipine 10 mg Tablet 10 mg PO DAILY 30 Days Qty: 30 2RF Protocol: Hold for SBP< HOLD for SBP < : 90 Continued travoprost [Travatan Z] 0.004 % drops 1 drp ophthalmic (eye) BEDTIME losartan 100 mg tablet 100 mg PO DAILY timolol maleate 0.25 % gel forming solution 1 drp ophthalmic (eye) DAILY insulin aspart U-100 [Novolog FlexPen U-100 Insulin] 100 unit/mL (3 mL) insulin pen 10 - 25 sliding scale dose subcut TIDAC Protocol: Insulin Correction Scale Less than or equal to 110 ---- Give (units): 0 111 to 150 Give (units): 0 151 to 200 Give (units): 2 201 to 250 Give (units): 4 251 to 300 Give (units): 6 301 to 350 Give (units): 8 Greater than 350 Give (units): 10 Call MD if Blood Glucose > : 350 Rx Instructions: INJECT SUBCUTANEOUSLY DIRECTED AT MEALS ACCORDING TO CARB RATIO/CORRECTION FACTOR, 60 UNITS TOTAL DAILY DOSE insulin degludec [Tresiba FlexTouch U-200] 200 unit/mL (3 mL) insulin pen 42 unit subcut DAILY@1800 liothyronine 5 mcg tablet 5 mcg PO DAILY@0600 milk thistle 150 mg Capsule 150 mg PO DAILY Rx Instructions: give with meal/snack magnesium oxide 400 mg magnesium Tablet 400 mg PO DAILY berberine chloride 500 mg Capsule 500 mg PO QID Rx Instructions: Takes with insulin and Metformin levothyroxine 150 mcg tablet 150 mcg PO DAILY@0600 clopidogrel 75 mg tablet 75 mg PO DAILY 45 Days Qty: 45 0RF aspirin 81 mg Tablet,Delayed Release (Dr/Ec) 81 mg PO DAILY 45 Days Qty: 45 0RF (DME) FreeStyle Lite Strips Strip See Rx Instructions Not Applicable .MEDSUPPLY Qty: 10 Rx Instructions: As directed metformin 1,000 mg tablet 1,000 mg PO BID hydrochlorothiazide 12.5 mg tablet 12.5 mg PO DAILY meclizine 25 mg tablet 25 mg PO DAILY PRN (Reason: Vertigo) Discharge Orders: Discharge Order (Routine); Ordered 06/09/25 Ordered By: Melina Sebastian Diet: Advance to usual diet Activity on Discharge: As tolerated Stand Alone Forms: Patient Portal Discharge page Print Language: Yakut Care Plan Goals: Follow-up with cardiology for outpatient 30 day event /Holter monitor Follow up with outpatient Neurology Please take aspirin and Plavix for 6 weeks followed by just aspirin 81 mg We advise you to take statins or ask your PCP regarding PSCK-9 inhibitors or red yeast rice We advise you to follow up with your PCP regarding weight loss We advise you to follow up with your PCP regarding blood pressure and diabetes control I have just added amlodipine 10 mg to your blood pressure medication otherwise I have not made any new changes as you have refused statins. Health Concerns: See above Plan of Treatment: See above Assessment: See above Patient Instructions: Transient Ischemic Attack (DC)
[2025-06-09 19:48] VITALS: BP 141/84; PULSE 78; RESP 20; TEMP 36.8; O2SAT 93
[2025-06-09 19:55] LABS: Cholesterol 173 mg/dL (<200); HDL Cholesterol 37 mg/dL (>40); Triglycerides 203 mg/dL (<150)
== END 2025-06-09 19:06 | disposition home or self-care (01) ==
LOC: HO.ED 23:03 → HO.EDOVER 06-09 02:54
PROVIDERS: Student in an Organized Health Care Education/Training Program; Admitting Provider Student in an Organized Health Care Education/Training Program; Emergency Provider Emergency Medicine; PCP Nurse Practitioner Adult Health; Visit Provider Student in an Organized Health Care Education/Training Program
DX: G45.9 Transient cerebral ischemic attack, unspecified (principal); R47.01 Aphasia; W19.XXXA Unspecified fall, initial encounter; G47.33 Obstructive sleep apnea (adult) (pediatric); E11.9 Type 2 diabetes mellitus without complications; I73.9 Peripheral vascular disease, unspecified; I10 Essential (primary) hypertension; E78.5 Hyperlipidemia, unspecified; E03.9 Hypothyroidism, unspecified; Z79.84 Long term (current) use of oral hypoglycemic drugs; Z79.899 Other long term (current) drug therapy; Z99.89 Dependence on other enabling machines and devices; Z71.3 Dietary counseling and surveillance; Z87.891 Personal history of nicotine dependence
CPT/HCPCS: 36415; 70450; 70496; 70498; 80048; 80061; 80076; 80307; 81003; 82947; 83735; 84484; 85025; 85610; 93005; 93306; 96372; 97161; 99222; 99284; J1650; Q9957; Q9967

== ENCOUNTER → 2025-06-08 20:29 | Outpatient (BNV) | payer MEDICARE, SELFPAY | PROVIDERS: Emergency Provider Emergency Medicine; PCP Nurse Practitioner Adult Health; Visit Provider Radiology Diagnostic Radiology | DX: R47.01 Aphasia (principal) | CPT/HCPCS: 70450; 70496; 70498 ==

== ENCOUNTER → 2025-06-08 20:31 | Outpatient (BNV) | payer MEDICARE, SELFPAY | PROVIDERS: Admitting Provider Student in an Organized Health Care Education/Training Program; Emergency Provider Emergency Medicine; PCP Nurse Practitioner Adult Health; Visit Provider Internal Medicine Cardiovascular Disease | DX: I63.9 Cerebral infarction, unspecified (principal) | CPT/HCPCS: 93010 ==

== ENCOUNTER 2025-06-08 23:22 | Outpatient (BNV) | payer MEDICARE, SELFPAY | END 2025-06-09 07:00 | PROVIDERS: Admitting Provider Student in an Organized Health Care Education/Training Program; Emergency Provider Emergency Medicine; PCP Nurse Practitioner Adult Health; Visit Provider Internal Medicine Cardiovascular Disease | DX: I35.0 Nonrheumatic aortic (valve) stenosis (principal); I34.81 Nonrheumatic mitral (valve) annulus calcification; I77.810 Thoracic aortic ectasia | CPT/HCPCS: 93306 ==

== ENCOUNTER → 2025-06-08 23:22 | Outpatient (BNV) | payer MEDICARE, SELFPAY | PROVIDERS: Admitting Provider Student in an Organized Health Care Education/Training Program; Emergency Provider Emergency Medicine; PCP Nurse Practitioner Adult Health; Visit Provider Psychiatry & Neurology Neurology | DX: G45.9 Transient cerebral ischemic attack, unspecified (principal) | CPT/HCPCS: 99222 ==

== ENCOUNTER → 2025-06-08 23:22 | Outpatient (BNV) | payer MEDICARE, SELFPAY | PROVIDERS: Admitting Provider Student in an Organized Health Care Education/Training Program; Emergency Provider Emergency Medicine; PCP Nurse Practitioner Adult Health; Visit Provider Student in an Organized Health Care Education/Training Program | DX: R47.01 Aphasia (principal); W19.XXXA Unspecified fall, initial encounter; G47.33 Obstructive sleep apnea (adult) (pediatric); Z99.89 Dependence on other enabling machines and devices; G45.9 Transient cerebral ischemic attack, unspecified | CPT/HCPCS: 99223; 99239 ==